=== PATIENT | male | born 1960 | race Caucasian/White ===

== ENCOUNTER 2023-06-28 12:29 | Emergency (ER) | payer BC, SELFPAY ==
[2023-06-28 13:00] VITALS: BP 132/87; PULSE 67; RESP 16; TEMP 36.4; O2SAT 98; BMI 27.5
--- NOTE | 2023-06-28 13:30 | PC.NURSE ---
pt to be seen in clinic with Dr Cuadra for tube replacement, signed ED refusal and sent to clinic, per pt and brother did not need to be seen in ER for any other issues
== END 2023-06-28 13:29 | disposition left against medical advice (07) ==
LOC: ED 13:29
PROVIDERS: Emergency Provider Family Medicine
DX: Z53.21 Procedure and treatment not carried out due to patient leaving prior to being seen by health care provider (principal)

== ENCOUNTER 2023-08-21 10:03 | Emergency (ER) | payer BC, SELFPAY ==
[2023-08-21 10:09] VITALS: BP 131/78; PULSE 67; RESP 12; TEMP 36.2; O2SAT 98; BMI 24.3
--- NOTE | 2023-08-21 11:19 | ED.GENADULT ---
HPI - General Adult General Date Seen: 08/21/23 Chief complaint: Unspecified Complaint, Adult Stated complaint: Feeding tube fell out Time Seen by Provider: 08/21/23 10:46 Source: family Mode of arrival: wheelchair History of Present Illness HPI narrative: Patient is 63-year-old male with a history of stroke in February of this year and G-tube placement in May presenting with his after the G-tube fell out. He is in a long-term and she was called this morning 0630 was told G-tube fell out. He is G-tube dependent. They states that has follow-up before and been replaced. No other concerns at this time. Related Data Allergies Allergy/AdvReac Type Severity Reaction Status Date / Time No Known Drug Allergies Allergy Verified 08/21/23 10:09 Review of Systems Narrative: Negative unless stated in HPI PFSH PFSH Medical History (Updated 08/21/23 @ 13:43 by Obi Hair DO) POLST (Physician Orders for Life-Sustaining Treatment) ?Z78.9 - Other specified health status (ICD-10) Chronic ischemic left MCA stroke ?I69.30 - Unspecified sequelae of cerebral infarction (ICD-10) History of gastrostomy tube placement Tobacco use ?Z72.0 - Tobacco use (ICD-10) Stenosis of left carotid artery ?I65.22 - Occlusion and stenosis of left carotid artery (ICD-10) Hypertension ?I10 - Essential (primary) hypertension (ICD-10) Hyperlipidemia ?E78.5 - Hyperlipidemia, unspecified (ICD-10) Hemiplegia affecting left nondominant side ?G81.94 - Hemiplegia, unspecified affecting left nondominant side (ICD-10) Dysphagia ?R13.10 - Dysphagia, unspecified (ICD-10) Feeding by G-tube ?Z93.1 - Gastrostomy status (ICD-10) Pulmonary embolism ?I26.99 - Other pulmonary embolism without acute cor pulmonale (ICD-10) Diabetes mellitus ?E11.9 - Type 2 diabetes mellitus without complications (ICD-10) Cataract ?H26.9 - Unspecified cataract (ICD-10) History of right MCA stroke ?Z86.73 - Personal history of transient ischemic attack (TIA), and cerebral infarction without residual deficits (ICD-10) Surgical History (Updated 06/20/23 @ 08:43 by Nidhi Cuadra MD) H/O vitrectomy ?Z98.890 - Other specified postprocedural states (ICD-10) H/O cataract extraction ?Z98.49 - Cataract extraction status, unspecified eye (ICD-10) Exam Narrative: Exam Narrative: Const: Well-nourished, Well-developed, in no distress Eyes: PERRL, no conjunctival injection, and symmetrical lids HENT: Atraumatic external nose and ears. Moist mucous membranes. GI: Nontender/Nondistended, No rebound or guarding. No erythema seen around the G-tube site. MSK:Extremities w/o deformity, Normal Active ROM Skin: Warm, Dry. No rashes or lesions. Neuro: Normal Muscle tone, No focal neurological deficits. Psych: Awake, response to pain and appears alert, this is his baseline per the Const: Vital Signs, click to edit/add: Vital Signs - 24 hr 08/21/23 10:09 08/21/23 13:49 Temperature 97.1 F L 97.5 F L Pulse Rate [Pulse Oximeter] 67 62 Respiratory Rate 12 16 Blood Pressure [Ri t Upper Arm] 131/78 136/68 Pulse Oximetry 98 97 Oxygen Delivery Me thod Room Air Room Air Course Vital Signs Vital signs: Initial Vital Signs Temperature 97.1 F L 08/21/23 10:09 Temperature Source Temporal Artery Scan 08/21/23 10:09 Pulse Rate 67 08/21/23 10:09 Pulse Rhythm Regular 08/21/23 10:09 Respiratory Rate 12 08/21/23 10:09 Blood Pressure 131/78 08/21/23 10:09 Blood Pressure Mean 95 08/21/23 10:09 Blood Pressure Position Sitting 08/21/23 10:09 Pulse Oximetry 98 08/21/23 10:09 Oxygen Delivery Method Room Air 08/21/23 10:09 Vital Signs Temperature 97.1 F L 08/21/23 10:09 Pulse Rate 67 08/21/23 10:09 Respiratory Rate 12 08/21/23 10:09 Blood Pressure 131/78 08/21/23 10:09 Pulse Oximetry 98 08/21/23 10:09 Oxygen Delivery Method Room Air 08/21/23 10:09 Temperature 97.5 F L 08/21/23 13:49 Pulse Rate 62 08/21/23 13:49 Respiratory Rate 16 08/21/23 13:49 Blood Pressure 136/68 08/21/23 13:49 Pulse Oximetry 97 08/21/23 13:49 Oxygen Delivery Method Room Air 08/21/23 13:49 Medical Decision Making MDM Narrative Medical decision making narrative: Patient is a 63-year-old male presenting to emergency department for a G-tube replacement. They brought 1 with thumb and I tried to replace it did not fit. There is tubing that was within the tract but does go all the way to the stomach so I do believe it is still open. We will try a smaller tube. Dr. Cuadra, who replaced the G-tube and June and states he has 0718 Norwegian tube tried to place 1 was unable to. She could only get a 12 Norwegian Cole. We did do an x-ray and shows it is in place. Patient will be transferred to [facility] for G-tube placement. Dr. Esposito is the accepting physician. Family is agreeable to this plan. They will leave by private vehicle as he is stable. Imaging Data Abdominal x-ray: Radiologist's impression: Indication: Evaluate gastrostomy tube. Technique: Five frontal abdominal radiographs following the administration of enteric contrast. Comparison: None available. Findings/Impression : Initial images show an enteric tube within the right upper quadrant. Contrast injection opacifies the proximal duodenum. Subsequent images appear to demonstrate retraction of the tube tip to a more midline position. Retention balloon is seen overlying the T12 vertebral body on final image in the region of the gastric antrum/pylorus. Contrast is seen opacifying multiple loops of nondilated small bowel. Bowel gas pattern is nonobstructed. Dictated by Tanika Gallardo MD @ 08/21/2023 1:50:03 PM Discharge Plan Discharge Clinical Impression: Gastrostomy tube dysfunction Patient Disposition: Xfer [place] Discharge Location: [facility] Condition: Stable Instructions: How to Use and Care for Your PEG Tube (ED) Stand Alone Forms: [facility] Info Instructions
--- NOTE | 2023-08-21 12:55 | CRLHL7_ITS ---
For Patients: As a result of the Century Cures Act, medical imaging exams and procedure reports are released immediately into your electronic medical record. You may view this report before your referring provider. If you have questions, please contact your health care provider. Indication: Evaluate gastrostomy tube. Technique: Five frontal abdominal radiographs following the administration of enteric contrast. Comparison: None available. Findings/Impression : Initial images show an enteric tube within the right upper quadrant. Contrast injection opacifies the proximal duodenum. Subsequent images appear to demonstrate retraction of the tube tip to a more midline position. Retention balloon is seen overlying the T12 vertebral body on final image in the region of the gastric antrum/pylorus. Contrast is seen opacifying multiple loops of nondilated small bowel. Bowel gas pattern is nonobstructed. Dictated by Tanika Gallardo MD @ 08/21/2023 1:50:03 PM (Electronically Signed)
--- NOTE | 2023-08-21 13:45 | P.GSCN_ITS ---
History of Present Illness Consult details Date Seen: 08/21/23 Consult date: 08/21/23 Narrative: He is known to me from prior gastrostomy tube changes. I first changed the gastrostomy tube on 06/26/2023. The time he had a 20 [place] Irish gastrostomy tube that had been placed by [facility] when he was inpatient for a stroke back in February. The 1st change went without difficulty. He was changed to a Lopez button. However, 3 days later the tube fell out. He was placed in a slightly longer button and the balloon was inflated further. He had not been having any difficulty until this morning it was noted that the tube was out. His nursing facility place a catheter in the tract and he came to the emergency department. They attempted to replace this with a 20 Northern Irish Lopez button, however this did not fit. [facility] Medical History (Updated 08/21/23 @ 13:43 by Obi Hair DO) POLST (Physician Orders for Life-Sustaining Treatment) ?Z78.9 - Other specified health status (ICD-10) Chronic ischemic left MCA stroke ?I69.30 - Unspecified sequelae of cerebral infarction (ICD-10) History of gastrostomy tube placement Tobacco use ?Z72.0 - Tobacco use (ICD-10) Stenosis of left carotid artery ?I65.22 - Occlusion and stenosis of left carotid artery (ICD-10) Hypertension ?I10 - Essential (primary) hypertension (ICD-10) Hyperlipidemia ?E78.5 - Hyperlipidemia, unspecified (ICD-10) Hemiplegia affecting left nondominant side ?G81.94 - Hemiplegia, unspecified affecting left nondominant side (ICD-10) Dysphagia ?R13.10 - Dysphagia, unspecified (ICD-10) Feeding by G-tube ?Z93.1 - Gastrostomy status (ICD-10) Pulmonary embolism ?I26.99 - Other pulmonary embolism without acute cor pulmonale (ICD-10) Diabetes mellitus ?E11.9 - Type 2 diabetes mellitus without complications (ICD-10) Cataract ?H26.9 - Unspecified cataract (ICD-10) History of right MCA stroke ?Z86.73 - Personal history of transient ischemic attack (TIA), and cerebral infarction without residual deficits (ICD-10) Surgical History (Updated 06/20/23 @ 08:43 by Nidhi Cuadra MD) H/O vitrectomy ?Z98.890 - Other specified postprocedural states (ICD-10) H/O cataract extraction ?Z98.49 - Cataract extraction status, unspecified eye (ICD-10) Meds Home Medications and Allergies Allergies Allergy/AdvReac Type Severity Reaction Status Date / Time No Known Drug Allergies Allergy Verified 08/21/23 10:09 Exam Narrative: Exam Narrative: General: No acute distress CV: Regular rate Respiratory: Breathing nonlabored on room air Abdomen: G-tube site present. The tract appears to be narrowed. Procedure: Gastrostomy replacement with fluoroscopic guidance Description: I was unable to pass the Lopez button catheter through the skin tract. I then obtained a 12 Northern Irish Cole catheter and was able to advance this through the opening with a small amount of resistance. I was unable to aspirate gastric contents. Because of this, Omnipaque contrast was obtained from x-ray. This was diluted 1-1 with water. 5 mL was injected in to the tube and the x-ray was taken at bedside. This showed contrast in the small bowel. It appeared as though the tube was in the duodenum. This was pulled back and the balloon inflated. I then injected an additional 5 mL of contrast. Again the tube appeared to be in the duodenum given the location and pattern of contrast. The balloon was deflated and pulled back several cm. This was then reinflated and pulled up to the abdominal wall. Additional contrast was injected. This showed the rugae of the stomach on x-ray. The catheter was capped and placed to glove. Const: Vital Signs, click to edit/add: Vital Signs - 24 hr 08/21/23 10:09 Temperature 97.1 F L Pulse Rate [Pulse Oximeter] 67 Respiratory Rate 12 Blood Pressure [Ri ght Upper Arm] 131/78 Pulse Oximetry 98 Oxygen Delivery Me thod Room Air Results Labs Labs: All other labs normal. Imaging Abdominal x-ray: report reviewed and image reviewed Additional studies: Radiology read of x-ray reviewed. Shows contrast in the small intestine. Assessment and Plan Assessment and plan (1) Gastrostomy tube dysfunction: Status: Acute Plan The patient is a 63-year-old male with a gastrostomy tube that has fallen out, further narrowing his stoma tract. Because of the size, we do not have any gastrostomy tubes at our facility. I did place a 12 Northern Irish Cole in the location. This can be used for feeding, however given the size of the holes in the Cole catheter I am concerned that his medications will very quickly clog them. Therefore I recommended we try to get him to a tertiary center where Interventional Radiology can hopefully dilate the tract and replaced with larger 2. He was accepted at [facility]. He is going to go by private car.
[2023-08-21 13:49] VITALS: BP 136/68; PULSE 62; RESP 16; TEMP 36.4; O2SAT 97
== END 2023-08-21 13:57 | disposition other institution (70) ==
PROVIDERS: Emergency Provider Student in an Organized Health Care Education/Training Program; PCP Student in an Organized Health Care Education/Training Program
DX: T85.598A Other mechanical complication of other gastrointestinal prosthetic devices, implants and grafts, initial encounter (principal)
CPT/HCPCS: 74018; 99283; 99284; 99285; Q9963

== ENCOUNTER 2023-11-14 21:40 | Outpatient (CLI) | payer BC, SELFPAY | END 2023-11-14 21:41 | disposition home or self-care (01) | LOC: AMB 11-17 16:18 | PROVIDERS: PCP Student in an Organized Health Care Education/Training Program; Visit Provider Emergency Medicine | DX: K94.23 Gastrostomy malfunction (principal) | CPT/HCPCS: A0425; A0429 ==

== ENCOUNTER 2024-03-14 09:09 | Outpatient (CLI) | payer MEDICARE, BC, SELFPAY ==
--- NOTE | 2024-03-14 09:15 | FL_ITS ---
Patient: SUSHILA ROWE Facility:?[facility] Patient ID:?[id number] Site Patient ID:?[id number]. Site :?[id number] Study:?XRay-Abdomen Barium swallow modified READ-03/14/2024 9:40:18 AM Ordering Physician:PAOLA NESS Final Report: INDICATION: DYSPHAGIA TECHNIQUE: Modified barium swallow. Fluoroscopic time 1 minute 58 seconds. FINDINGS/IMPRESSION: Fluoroscopic guidance performed for video swallow study performed by speech pathology. Dictated by Leonidas Vo MD @ 03/18/2024 8:30:16 AM Signed by:?Leonidas Vo MD @03/18/2024 8:30:16 AM (Electronic Signature)
== END 2024-03-14 09:10 | disposition home or self-care (01) ==
PROVIDERS: PCP Student in an Organized Health Care Education/Training Program; Visit Provider Nurse Practitioner Adult Health
DX: R13.10 Dysphagia, unspecified (principal)
CPT/HCPCS: 74230; 92611

== ENCOUNTER 2024-11-08 10:32 | Outpatient (CLI) | payer MEDICARE, BC, SELFPAY | END 2024-11-08 10:33 | disposition home or self-care (01) | LOC: AMB 11-10 07:04 | PROVIDERS: PCP Family Medicine; Visit Provider Internal Medicine | DX: R53.1 Weakness (principal); U07.1 COVID-19 | CPT/HCPCS: A0425; A0429 ==

== ENCOUNTER 2024-11-08 10:53 | Emergency (ER) | payer MEDICARE, BC, SELFPAY ==
[2024-11-08 11:03] VITALS: BP 124/64; PULSE 89; RESP 18; TEMP 35.8; O2SAT 94; BMI 26.7
--- NOTE | 2024-11-08 11:43 | ED_ITS ---
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 Ranulfo currently resides at [address] [place] [address]. According to notes he tested positive for COVID today after was noted he had a temp of 101.2? and he is face was flushed any seemed to be moaning more. He was given acetaminophen at 0800 hours this morning. Appears there was a discussion between Ranulfo's and the nurse practitioner regarding the use of Paxlovid and they decided that the tablet could not fit in to Nora G tube. Thus they are requesting remdesivir. There have been no reports of hypoxia. Ranulfo seems to have more moaning type be havior. At baseline he is nonverbal. Current medications include: Apixaban 2.5 mg b.i.d. Aspirin 81 mg daily Atorvastatin Escitalopram Gabapentin Lansoprazole Lisinopril Loratadine Reglan Acetaminophen Simethicone Senna Suppository Eyedrops Flonase Related Data Home Medications ?Medication ?Instructions ?Recorded ?Confirmed acetaminophen 500 mg tablet 500 mg PO Q6H PRN 11/08/24 11/08/24 apixaban 2.5 mg tablet 2.5 mg feeding tube BID 11/08/24 11/08/24 aspirin 81 mg chewable tablet 1 tab PO DAILY 11/08/24 11/08/24 atorvastatin 80 mg tablet 80 mg PO DAILY 11/08/24 11/08/24 carboxmethylcellulose 11/08/24 Previous Rx's ?Medication ?Instructions ?Recorded molnupiravir 200 mg capsule (EUA) 800 mg (4 x 200 mg) PO Q12H 5 days 11/08/24 (Lagevrio) #40 caps Allergies Allergy/AdvReac Type Severity Reaction Status Date / Time No Known Drug Allergies Allergy Verified 11/08/24 11:10 Review of Systems Status of ROS: Reports: unobtainable due to medical condition Narrative: According to [place] , patient had been well 48 hours ago Const: Reports: fever PFSH PFSH Medical History POLST (Physician Orders for Life-Sustaining Treatment) ?Z78.9 - Other specified health status (ICD-10) Chronic ischemic left MCA stroke ?I69.30 - Unspecified sequelae of cerebral infarction (ICD-10) History of gastrostomy tube placement Tobacco use ?Z72.0 - Tobacco use (ICD-10) Stenosis of left carotid artery ?I65.22 - Occlusion and stenosis of left carotid artery (ICD-10) Hypertension ?I10 - Essential (primary) hypertension (ICD-10) Hyperlipidemia ?E78.5 - Hyperlipidemia, unspecified (ICD-10) Hemiplegia affecting left nondominant side ?G81.94 - Hemiplegia, unspecified affecting left nondominant side (ICD-10) Dysphagia ?R13.10 - Dysphagia, unspecified (ICD-10) Feeding by G-tube ?Z93.1 - Gastrostomy status (ICD-10) Pulmonary embolism ?I26.99 - Other pulmonary embolism without acute cor pulmonale (ICD-10) Diabetes mellitus ?E11.9 - Type 2 diabetes mellitus without complications (ICD-10) Cataract ?H26.9 - Unspecified cataract (ICD-10) History of right MCA stroke ?Z86.73 - Personal history of transient ischemic attack (TIA), and cerebral infarction without residual deficits (ICD-10) Surgical History H/O vitrectomy ?Z98.890 - Other specified postprocedural states (ICD-10) H/O cataract extraction ?Z98.49 - Cataract extraction status, unspecified eye (ICD-10) Social History Smoking Status: Former smoker How often do you have a drink containing alcohol: never AUDIT-C Alcohol total score: 0 Non-prescribed substance use: denies use Exam Narrative: Exam Narrative: Ranulfo is awake. Nonverbal at this time. Cooperative with exam. Does appear to be congested with occasional cough but no respiratory distress. Neck is supple. Heart with regular rate and rhythm. Lungs are with decreased breath sounds in the bases but no significant wheezing or crackles. Abdomen is soft. G-tube ap pears to be in place without surrounding erythema. Lower extremities without edema. Const: Vital Signs, click to edit/add: Vital Signs - 24 hr 11/08/24 11:03 11/08/24 13:47 11/08/24 14:07 Temperature 96.5 F L 100.9 F H 100.9 F H Pulse Rate [Pulse Oximeter] 89 105 H Respiratory Rate 18 18 Blood Pressure [Ri t Upper Arm] 124/64 133/66 Pulse Oximetry 94 90 Oxygen Delivery Me thod Room Air Room Air Documenting provider has reviewed patient's vital signs: yes Course Course ED Course: At this time patient appears to be oxygenating well with O2 sats between 94-96%. He is not tachycardic. Will investigate the use of Paxlovid as your a crushed tablet and consult with pharmacy here. In the meantime will obtain chest x-ray and labs to include CBC and comprehensive panel. Reevaluation(s) Reevaluation #1: Patient noted to have an increase of temp to 100.9 and Ranulfo's request dating Tylenol. We did switch this from tablet form to a rectal. 650 mg. Vital Signs Vital signs: Initial Vital Signs Temperature 96.5 F L 11/08/24 11:03 Temperature Source Temporal Artery Scan 11/08/24 11:03 Pulse Rate 89 11/08/24 11:03 Respiratory Rate 18 11/08/24 11:03 Blood Pressure 124/64 11/08/24 11:03 Blood Pressure Mean 84 11/08/24 11:03 Blood Pressure Position Sitting 11/08/24 11:03 Pulse Oximetry 94 11/08/24 11:03 Oxygen Delivery Method Room Air 11/08/24 11:03 Vital Signs Temperature 96.5 F L 11/08/24 11:03 Pulse Rate 89 11/08/24 11:03 Respiratory Rate 18 11/08/24 11:03 Blood Pressure 124/64 11/08/24 11:03 Pulse Oximetry 94 11/08/24 11:03 Oxygen Delivery Method Room Air 11/08/24 11:03 Temperature 100.9 F H 11/08/24 14:07 Pulse Rate 105 H 11/08/24 14:07 Respiratory Rate 18 11/08/24 14:07 Blood Pressure 133/66 11/08/24 14:07 Pulse Oximetry 90 11/08/24 14:07 Oxygen Delivery Method Room Air 11/08/24 14:07 Medications Administered Medications: Discontinued Medications Generic Name Dose Route Start Last Admin Trade Name Doe PRN Reason Stop Dose Admin Acetaminophen 650 mg 11/08/24 12:08 11/08/24 13:17 Acetaminophen 325 Mg Tablet PO 11/08/24 12:09 Not Given ONCE ONE Acetaminophen 650 mg 11/08/24 13:31 11/08/24 13:47 Acetaminophen 650 Mg Supp [place] 11/08/24 13:32 650 mg ONCE ONE Administration MDM - Weakness MDM Narrative Medical decision making narrative: 1. COVID-today appears to be day 1 of symptoms. Chest x-ray reassuring as have oxygen saturations been during stay in the ED. Patient is a candidate based on time for Paxlovid, molnupiravir as well as remdesivir. I had discussion with pharmacy regarding these medications and presented a pros and cons discussion to [place] and daughter of as related to his current medications. Options included: 1. Paxlovid-pros include administration through the G-tube and we did find literature that supports crushing the tablets so that we could use the G-tube. The patient has normal kidney function and therefore would be a candidate. He does have some possible interactions with his medications and if we did this we would continue his apixaban but hold his aspirin, atorvastatin, loratadine. I did check his other medications to include escitalopram gabapentin lansoprazole lisinopril melatonin and Reglan and these could be continued per his normal routine. While the theoretical risk with the use of Paxlovid and Eliquis together would be increased bleeding, taking him off his aspirin could place him at risk for stroke. 2.Molnupiravir-antiviral that would not be as effective as Paxlovid or remdesivir but we would not have to change any of his medications in order for him to take it and therefore would not place him at increased risk for stroke. Pro would include the fact that it can be crushed and given through G2. 3. Remdesivir-this antiviral would have to be given for 3 days or and would nini rios cost thousands of dollars. I cannot guarantee that insurance would pay for this and family would need to be on the hook for the remainder not covered by insurance. This would also involve using an ambulance for 3 days to bring Ranulfo back and forth for outpatient administration. We did talk briefly about admitting Ranulfo to the hospital but this would be under out patient stat and family again would be on the hook for any additional charges as he does not meet inpatient criteria. We would not have to change other medication dosing with this medication and it likely works as well as Paxlovid. After discussion of all of these family has decided to go with molnupiravir so as to avoid any need for changing of his anticoagulation medications and for venting further stroke. They are aware that this medication does not work as well as Paxlovid or remdesivir. This discussion was had with both Ranulfo's and daughter. Daughter was on the phone. 2. Disposition-home at this time to [address] [place] [address]. Prior to departure I did speak with Ranulfo's again to ensure that she feels comfortable with our plan after our discussions and she agrees with that. Return for worsening sy mptoms and as needed. Medical Records Attestation: I reviewed the patient's medical records. Lab Data Attestation: I reviewed the patient's lab results. Labs: Lab Results 11/08/24 Range/Units 12:41 WBC 8.90 (4.50-11.00) K/uL RBC 4.56 (4.30-5.90) m/uL Hgb 14.3 (13.5-17.5) gm/dL Hct 42.5 (37.0-53.0) % MCV 93 (80-100) fL MCH 31 (26-34) pg MCHC 34 (32-36) gm/dL RDW Coeff of Namita 12.0 (11.5-15.5) % Plt Count 180 (140-440) K/uL Neut % (Auto) 81.3 H (42.0-72.0) % Lymph % (Auto) 8.3 L (20-44) % [place] % (Auto) 10.0 (0.0-11.0) % Eos % (Auto) 0.0 (0.0-7.0) % Baso % (Auto) 0.2 (0.0-3.0) % Neut # (Auto) 7.20 H (1.7-7.0) K/uL Lymph # (Auto) 0.70 L (0.90-2.90) K/uL [place] # (Auto) 0.90 (0.00-0.90) K/UL Eos # (Auto) 0.00 (0.00-0.50) K/uL Baso # (Auto) 0.02 (0.00-0.30) K/uL Abs Immat Gran (auto) 0.02 (0.00-0.30) K/uL Imm/Tot Granulo (auto) 0.2 % Sodium 136 (135-149) mmol/L Potassium 4.5 (3.6-5.1) mmol/L Chloride 103 (96-114) mmol/L Carbon Dioxide 28 (20-32) mmol/L Anion Gap 5 L (7-15) mEq/L BUN 25 (7-30) mg/dL Creatinine 0.5 (0.5-1.5) mg/dL Estimated Creat Clear 73.65 Estimated GFR 113 ml/min Glucose 101 (60-115) mg/dL Calcium 9.1 (8.4-10.6) mg/dL Total Bilirubin 0.9 (0.1-1.5) mg/dL AST 28 (12-35) U/L ALT 26 (4-50) U/L Alkaline Phosphatase 41 (40-150) U/L Total Protein 7.2 (6.0-8.3) g/dL Albumin 4.5 (3.3-5.0) g/dL Imaging Data Chest x-ray: Attestation: I have reviewed the pertinent imaging results. My impression: I do not note any large infiltrate Radiologist's impression: Cardiovascular and mediastinum: Upper normal heart size with atherosclerotic calcification. Lungs and pleural space: No pleural effusion or pneumothorax. Bilateral bronchial wall thickening which can be seen in bronchitis or reactive airways disease. Some overlapping soft tissue density at the left lung base although there may be some linear opacities, likely atelectasis at this level. Bones and soft tissues: Underlying osteopenia. Discharge Plan Discharge Clinical Impression: COVID Condition: Unchanged Additional Instructions: Lab values were reassuring today. Chest x-ray does not show any pneumonia. Return for worsening symptoms and as needed. After our discussion regarding the pros and cons of remdesivir, molnupiravir and Paxlovid, you have decided to use the antiviral Molnupiravir. You do not need to change any of your current medications with this particular medicine. This can be crushed and here are the following instructions: Administration: Adult Oral:?Administer with or without food. Swallow capsules whole; do not open, break, or crush Nasogastric, orogastric, gastrostomy, or gastrojejunostomy feeding tubes (NG, OG, G, or GJ tubes):?For patients unable to swallow capsules whole, capsule contents may be dispersed in water to be administered via nasogastric (NG) tubes, orogastric (OG) tubes, gastrostomy (G) tubes >=2 English, or gastrojejunostomy (GJ) tubes >=4 English. Open capsules and transfer contents to a container with a lid; add 40 mL of water to the container and shake thoroughly (3 minutes). Flush tube with 5 mL of water prior to administration; draw up entire contents in container using an appropriate syringe and administer immediately through the NG/OG/G tube or through gastric port for GJ tube. If contents remain in container, add 10 mL of water to the container, mix, and draw up into the same syringe administering via the tube; repeat as needed until container and syringe are empty. Flush tube twice with 5 mL of water (10 mL total) after administering the mixture.?Note:?Capsule contents may not dissolve completely and visible undissolved particulates are acceptable; do not store mixture for future use Prescriptions: New Lagevrio (EUA) 200 mg capsule 800 mg PO Q12H 5 Days Qty: 40 0RF No Action acetaminophen 500 mg tablet 500 mg PO Q6H PRN aspirin 81 mg tablet,chewable 1 tab PO DAILY apixaban 2.5 mg tablet 2.5 mg feeding tube BID atorvastatin 80 mg tablet 80 mg PO DAILY carboxmethylcellulose Patient Comments: 1 drop in both eyes as needed for dry eyes PRN Follow Up/Referrals: Chirag Thomas MD [Referring] -
--- NOTE | 2024-11-08 12:08 | CRLHL7_ITS ---
For Patients: As a result of the Cures Act, medical imaging exams and procedure reports are released immediately into your electronic medical record. You may view this report before your referring provider. If you have questions, please contact your health care provider. Indication: COVID infection Technique: Chest 1 view Comparison: None Findings/Impression: Cardiovascular and mediastinum: Upper normal heart size with atherosclerotic calcification. Lungs and pleural space: No pleural effusion or pneumothorax. Bilateral bronchial wall thickening which can be seen in bronchitis or reactive airways disease. Some overlapping soft tissue density at the left lung base although there may be some linear opacities, likely atelectasis at this level. Bones and soft tissues: Underlying osteopenia. Dictated by Sergey Vela MD @ 11/08/2024 12:54:51 PM (Electronically Signed)
[2024-11-08 12:54] LABS: Basophils Absolute Auto 0.02 K/uL (0.00-0.30); Basophils Percent Auto 0.2 % (0.0-3.0); Hematocrit 42.5 % (37.0-53.0); Hemoglobin* 14.3 gm/dL (13.5-17.5); Immature Granulocytes Abs Auto 0.02 K/uL (0.00-0.30); Immature Granulocytes Pct Auto 0.2 %; Lymphocytes Percent Auto 8.3 % (20-44); Mean Corpuscular HGB Conc 34 gm/dL (32-36); Mean Corpuscular Hemoglobin 31 pg (26-34); Mean Corpuscular Volume 93 fL (80-100); Neutrophils Percent Auto 81.3 % (42.0-72.0); Platelet Count* 180 K/uL (140-440); Red Blood Count 4.56 m/uL (4.30-5.90)
[2024-11-08 13:00] LABS: Albumin* 4.5 g/dL (3.3-5.0); Chloride* 103 mmol/L (96-114)
[2024-11-08 13:01] LABS: Potassium* 4.5 mmol/L (3.6-5.1); Sodium* 136 mmol/L (135-149)
[2024-11-08 13:03] LABS: Anion Gap 5 mEq/L (7-15); Bilirubin Total* 0.9 mg/dL (0.1-1.5); Carbon Dioxide* 28 mmol/L (20-32); Creatinine* 0.5 mg/dL (0.5-1.5); Est. Creatinine Clearance* 73.65; Estimated Glomerular Filt Rate 113 ml/min
[2024-11-08 13:04] LABS: Alanine Aminotransferase* 26 U/L (4-50); Alkaline Phosphatase* 41 U/L (40-150); Aspartate Amino Transferase* 28 U/L (12-35); Blood Urea Nitrogen* 25 mg/dL (7-30); Calcium* 9.1 mg/dL (8.4-10.6); Glucose* 101 mg/dL (60-115); Total Protein* 7.2 g/dL (6.0-8.3)
[2024-11-08 13:19] LABS: Slide Review Reflex No
[2024-11-08 13:47] VITALS: TEMP 38.3
[2024-11-08] MEDS: ACETAMINOPHEN 650 MG SUPP PR (13:47)
[2024-11-08 14:07] VITALS: BP 133/66; PULSE 105; RESP 18; TEMP 38.3; O2SAT 90
== END 2024-11-08 14:36 | disposition home or self-care (01) ==
PROVIDERS: Emergency Provider Family Medicine; PCP Family Medicine
DX: U07.1 COVID-19 (principal)
CPT/HCPCS: 36415; 71045; 80053; 85025; 99283; 99284; A9270

== ENCOUNTER 2024-11-08 14:21 | Outpatient (CLI) | payer MEDICARE, BC, SELFPAY | END 2024-11-08 14:22 | disposition home or self-care (01) | LOC: AMB 11-18 04:29 | PROVIDERS: PCP Family Medicine; Visit Provider Internal Medicine | DX: U07.1 COVID-19 (principal); R53.1 Weakness; R05.9 Cough, unspecified | CPT/HCPCS: A0425; A0428 ==

== ENCOUNTER 2025-08-16 05:00 | Outpatient (CLI) | payer MEDICARE, BC, SELFPAY | END 2025-08-16 05:01 | disposition home or self-care (01) | LOC: AMB 08-18 11:53 | PROVIDERS: PCP Family Medicine; Visit Provider Family Medicine | DX: Z43.1 Encounter for attention to gastrostomy (principal) | CPT/HCPCS: A0425; A0427 ==

== ENCOUNTER 2025-08-26 03:33 | Outpatient (CLI) | payer MEDICARE, BC, SELFPAY | END 2025-08-26 03:34 | disposition home or self-care (01) | LOC: AMB 18:18 | PROVIDERS: PCP Family Medicine; Visit Provider Family Medicine | DX: R06.02 Shortness of breath (principal) | CPT/HCPCS: A0425; A0427 ==

== ENCOUNTER 2025-08-26 03:53 | Inpatient (IN) | payer MEDICARE, BC, SELFPAY ==
--- OUTSIDE RECORDS SUMMARY | 2025-08-15 09:52 | XMS_ITS | Encounter Summary ---
Author Organization [facility] Address [address] [place] [address] Care Team Providers Care Assistant Site Manager Name Role Phone None Reported, Pcp Primary Care Provider Unavail able Reason for Referral * Outpatient (Routine) - Closed Specialty Diagnoses / Procedures Referred By Rahel dacosta Referred To Contact Radiology Diagnoses Dietary Counseling And Surveillance For Enteral Nutrition Procedures IR Gastrostomy Tube Exchange Tamiko Malik APRN, C.N.P., D.N.P. [address] [place] [phone] Phone: tel: fax: [facility] Referral ID Status Reason Start Date Expiration Date Visits Re quested Visits Authorized [id number] Closed 07/30/2025 10/30/2026 1 1 Reason for Visit * Outpatient (Routine) - Closed Specialty Diagnoses / Procedures Referred By Rahel dacosta Referred To Contact Radiology Diagnoses Dietary Counseling And Surveillance For Enteral Nutrition Procedures IR Gastrostomy Tube Exchange Tamiko Malik APRN, C.N.P., D.N.P. [address] [place] [phone] Phone: tel: fax: [facility] Referral ID Status Reason Start Date Expiration Date Visits Re quested Visits Authorized [id number] Closed 07/30/2025 10/30/2026 1 1 Encounter Details Date Type Department Care Team (Late st Contact Info) Description 08/15/2025 9:52 AM CDT - 08/15/2025 1:01 PM CDT Hospital Encounter Department of Radiology in [place], [place] [address] [place] [phone] Tamiko Malik, JALEN, C.N.P., D.N.P. [address] [place] [phone] Derik Hernandez M.D. [address] [place] [phone] Shelly Mckeon M.D. [address] [place] [phone] Dietary Counseling And Surveillance For Enteral Nutrition Discharge Disposition: Home or Self Care Social History Tobacco Use Types Packs/Day Years Used Date Smoking Tobacco: Former Cigarettes 1 40 0 01/27/1980 - 01/27/2020 Passive Smoke Exposure: Current Smokeless Tobacco: Never Comments:Past and current sm dinesh exposure Alcohol Use Standard Drinks/Week Comments Not Currently 6 (1 standard drink = 0.6 oz pur e alcohol) Humiliation, Afraid, Rape, and Kick questionnair e Answer Date Recorded Within the last year, have y ou been afraid of your partner or ex-partner? No 01/22/2023 Within the last year, have y ou been humiliated or emotionally abused in other ways by your partner or ex-partner? No 01/22/2023 Physically Abused Not on file 01/22/2023 Within the last year, have y ou been raped or forced to have any kind of sexual activity by your partner or ex-partner? No 01/22/2023 Hunger Vital Sign Answer Date Recorded Within the past 12 months, y ou worried that your food would run out before you got the money to buy more. Never true 01/23/20 23 Within the past 12 months, t he food you bought just didn't last and you didn't have money to get more. Never true 01/22/2023 PRAPARE - Transportation Answer Date Re corded In the past 12 months, has l ack of transportation kept you from medical appointments or from getting medications? No 01/04 In the past 12 months, has l ack of transportation kept you from meetings, work, or from getting things needed for daily living? No 01/22/2023 Housing Stability Vital Sign Answer Francisco e Recorded In the last 12 months, was t here a time when you were not able to pay the mortgage or rent on time? No 01/22/2023 In the last 12 months, how many places have you lived? 1 01/22/2023 In the last 12 months, was t here a time when you did not have a steady place to sleep or slept in a detention (including now)? No 01/22/2023 Education Answer Date Recorded What is the highest level of school you have completed or the highest degree you have received? 12th grade 02/28/2020 Sex and Gender Information Value Date Recorded Sex Assigned at Male 09/16/2021 7:21 PM [employer] Legal Sex Male 10:26 AM [employer] Gender Identity Male 12/17/2020 7:55 PM [employer] Sexual Orientation Straight 12/17/2020 7: 55 PM [employer] documented as of this encounter Last Filed Vital Signs Vital Sign Reading Time Taken Comments Blood Pressure 123/74 08/15/2025 12:45 PM CDT Pulse 59 08/15/2025 12:45 PM CDT Temperature 36.5 C (97.7 F) 08/15/2025 12:49 PM CDT Respiratory Rate 18 08/15/2025 10:5 2 AM CDT Oxygen Saturation 97% 08/15/2025 12: 45 PM CDT Inhaled Oxygen Concentration - - Weight 81.5 kg (179 lb 10.8 oz) 025 10:52 AM CDT Height - - Body Mass Index 25.15 07/14/2023 8:29 AM CDT documented in this encounter Medications at Time of Discharge acetaminophen (TYLENOL) 500 mg tablet Administer 2 tablets (1,000 mg total) via gastric tube every 6 (six) hours as needed for mild pain or score 1-3 of 10, moderate pain or score 4-6 of 10 or headaches. 04/06/2023 apixaban (ELIQUIS) 5 mg tablet Administer 1 tablet (5 mg total) via gastric tube 2 (two) times a day. 04/06/2023 aspirin 81 mg chewable tablet Administer 1 tablet (81 mg total) via gastric tube daily. 04/07/2023 atorvastatin (LIPITOR) 80 mg tablet Administer 1 tablet (80 mg total) via gastric tube at bedtime. 04/06/2023 carboxymethylcel lulose (REFRESH PLUS) 0.5 % ophthalmic solution Administer 1 drop into both eyes 3 (three) times a day as needed for dry eyes. 04/06/2023 cholecalciferol (VITAMIN D3) 10 mcg (400 Unit) tablet Administer 1 tablet (10 mcg total) via gastric tube every morning. 04/07/2023 escitalopram (LEXAPRO) 10 mg tablet Administer 1 tablet (10 mg total) via gastric tube daily. 04/07/2023 gabapentin (NEURONTIN) 300 mg capsule Take 300 mg by mouth at bedtime. guaiFENesin (Mucinex) 600 mg 12 hr tablet Take 600 mg by mouth daily. 06/27/2023 lansoprazole (PREVACID) 3 mg/mL suspension Take 10 mL (30 mg total) by mouth 2 (two) times a day. 300 mL 05/23/2023 lisinopriL (PRINIVIL,ZESTRI L) 20 mg tablet Administer 1 tablet (20 mg total) via gastric tube daily. 04/07/2023 loratadine (CLARITIN) 5 mg/5 mL solution Administer 10 mL (10 mg total) via gastric tube daily as needed for allergies. 04/12/2023 melatonin 3 mg tablet Administer 2 tablets (6 mg total) via gastric tube at bedtime. 0 04/06/2023 metoclopramide (REGLAN) 10 mg tablet Take 1 tablet (10 mg total) by mouth 3 (three) times a day. 90 tablet 1 05/23/2023 sennosides-docus ate sodium (SENOKOT-S) 8.6-50 mg per tablet Administer 2 tablets via gastric tube 2 (two) times a day. 04/06/2023 simethicone (MYLICON) 80 mg chewable tablet Administer 1 tablet (80 mg total) via gastric tube 4 (four) times a day. 120 tablet 05/23/2023 SITagliptin phosphate (JANUVIA) 100 mg tablet Administer 1 tablet (100 mg total) via gastric tube daily. 04/07/2023 documented as of this encounter Plan of Treatment Not on file documented as of this encounter Procedures Procedure Name Priority Date/Time Associated Diagnosis Comments IR GASTROSTOMY TUBE EXCHANGE RAD - Routine (most inpatients and all outpatients) 08/15/2025 12:34 PM CDT Dietary Counseling And Surveillance For Enteral Nutrition documented in this encounter Results * IR Gastrostomy Tube Exchange (08/15/2025 12:34 PM CDT) Anatomical Region Laterality Modality Abdomen, Vascular Interventi onal RST LOS, Vascular Interventional ARZ LOS, Vascular Interventional FLA LOS N/A X-Ray Angiography Impressions 08/15/2025 1:53 PM CDT Exchange of an 18 [place]er percutaneous gastrostomy tube. The tube is ready for use. Exchange tube in 3-5 months. Contact the [facility] clinic at [phone] to schedule the tube exchange. NR Narrative 08/15/2025 1:53 PM CDT EXAM: IR GASTROSTOMY TUBE EXCHANGE CLINICAL HISTORY: Routine gastrostomy tube exchange Encounter Reason: Routine. TECHNIQUE: The patient was placed supine on the fluoroscopy table. The abdomen and gastrostomy tube were prepared and draped in sterile fashion. Van Owner Operator image demonstrates a percutaneous gastrostomy tube. Contrast injection through the tube demonstrated satisfactory position in the stomach. The tube was exchanged for a new gastrostomy tube with dilute contrast in the balloon (specifications below). Final contrast injection through the tube confirmed satisfactory function and position in the stomach. No immediate complication. Tube Type: Gastrostomy. Tube Connection: ENFit. Tube Size: 18 [place]er. Low Profile: No. Disc Height: 3 cm. Balloon Volume: 7 mL. PREPROCEDURE: Patient seen and evaluated. Allergies, pertinent medications, and history reviewed. Discussed risks, benefits, alternatives for procedure, and obtained informed consent. Patient understands information and questions answered. Immediately prior to starting the procedure, in the presence of the assisting personnel, procedural pause was conducted to verify correct patient identity and verification of procedure to be performed, and as applicable, correct side and site, correct patient position, availability of implants, special equipment, or special requirements, and all image and specimen identification data. The roles and responsibilities of care team members, residents, and fellows were discussed. Procedure Note Derik Hernandez M.D. - 08/15/2025 EXAM: IR GASTROSTOMY TUBE EXCHANGE CLINICAL HISTORY: Routine gastrostomy tube exchange Encounter Reason: Routine. TECHNIQUE: The patient was placed supine on the fluoroscopy table. The abdomen andgastrostomy tube were prepared and draped in sterile fashion. Van Owner Operator imagedemonstrates a percutaneous gastrostomy tube. Contrast injection throughthe tube demonstrated satisfactory position in the stomach. The tube wasexchanged for a new gastrostomy tube with dilute contrast in the balloon(specifications below). Final contrast injection through the tubeconfirmed satisfactory function and position in the stomach. No immediatecomplication. Tube Type: Gastrostomy. Tube Connection: ENFit. Tube Size: 18 [place]er. Low Profile: No. Disc Height: 3 cm. Balloon Volume: 7 mL. PREPROCEDURE: Patient seen and evaluated. Allergies, pertinentmedications, and history reviewed. Discussed risks, benefits, alternativesfor procedure, and obtained informed consent. Patient understandsinformation and questions answered. Immediately prior to starting theprocedure, in the presence of the assisting personnel, procedural pausewas conducted to verify correct patient identity and verification ofprocedure to be performed, and as applicable, correct side and site,correct patient position, availability of implants, special equipment, orspecial requirements, and all image and specimen identification data. Theroles and responsibilities of care team members, residents, and fellowswere discussed. IMPRESSION: Exchange of an 18 [place]er percutaneous gastrostomy tube. The tube is readyfor use. Exchange tube in 3-[address] [facility] [phone] to schedule the tube exchange. NR Tamiko Malik APRN C.N.P., D.N.P. IMG IR PROCED URES Final Result documented in this encounter Visit Diagnoses Diagnosis Dietary Counseling And Surveillance For Enteral Nutrition documented in this encounter Administered Medications Inactive Administered Medications - up to 3 most recent administrations Medication Order MAR Action Action Date Dose Rate Site iohexoL 300 mg iodine/mL solution (Omnipaque) As needed, Starting on Mon08/15/25 at 1234, Intra-Op Given 08/15/2025 12:34 PM CDT 30 mL documented in this encounter Active and Recently Administered Medications Times are shown in CDT. PRN Medication Order 08/13/2025 08/14/2025 08/15/2025 iohexoL 300 mg iodine/mL solution (Omnipaque) (COMPLETED) As needed, Starting on Mon08/15/25 at 1234, Intra-Op 1234 (Given - Provid er: Derik Hernandez M.D.) documented in this encounter Care Teams Assistant Site Manager Relationship Specialty Start Date End Date None Reported, Pcp PCP - General Family Medicine 04/08/25 documented as of this encounter
--- OUTSIDE RECORDS SUMMARY | 2025-08-16 06:10 | XMS_ITS | Encounter Summary ---
Author Organization [facility] Address [address] [place] [id number] Care Team Providers Care Medical Laboratory Scientist Name Role Phone None Reported, Pcp Primary Care Provider Unavail able Reason for Visit * Reason Comments Tube Problem Encounter Details Date Type Department Care Team ([facility] st Contact Info) Description 08/16/2025 6:10 AM CDT - 08/16/2025 11:39 AM CDT Emergency [facility] [address] [place] [phone] Jorge Alberto Diaz D.O. [address] [place] [phone] Jono Caceres M.D. [address] [place] [phone] Dysfunction Gastric Tube Initial (Primary Dx) Discharge [...] place to sleep or slept in a penitentiary (including now)? No 01/22/2023 Education Answer Date Recorded What is the highest level of school you have completed or the highest degree you have received? 12th grade 02/28/2020 Sex and Gender Information Value Date Recorded Sex Assigned at Male 09/16/2021 7:21 PM SOFT METALS HAND ENGRAVER Legal Sex Male 10:26 AM SOFT METALS HAND ENGRAVER Gender Identity Male 12/17/2020 7:55 PM SOFT METALS HAND ENGRAVER Sexual Orientation Straight 12/17/2020 7: 55 PM SOFT METALS HAND ENGRAVER documented as of this encounter Last Filed [...] 8:38 AM CDT SUBJECTIVE Emergency Department social media intern is consulted by ED RN, Ynes, to assist with transportation resources. Nursing reports the patient is ready for discharge back to his nursing home facility, [facility], in [place]. Patient is needing wheelchair transport, and does not need supplemental oxygen for the transport. Nurse to nurse report has been completed. Patient in currently located in C10 of the Emergency Department. Patient is nonverbal at baseline; therefore, social work calls and speaks with patient's , Mely (phone: [phone]). Social work introduces self and reviews the role of social work in the emergency department. Mely verbalizes an understanding of ED social work role as part of patient's treatment team. Mely appears to be a reliable historian for the purpose of this assessment. Mely reports that patient currently resides at his nursing home facility, [facility] (address: [address] [place] [address]). Mely notes no concerns with patient returning to the above facility. Mely agrees to da ent needing wheelchair transportation; therefore, social work arranges transportation via [employer] this morning on patient's behalf. Nursing is updated. OBJECTIVE Emergency Department Social work was consulted to assist with transportation back to patient's nursing home facility - [facility] (address: [address] [place] [address]). Social work arranged transportation with [employer]. ASSESSMENT / PLAN ASSESSMENT Transport resources were explored and arranged to assist with the patient's needs. The patient appears to have insight into their needs at this time. PLAN 1. [employer] to provide return transportation to patient's nursing home facility, [facility] (address: [address] [place] [address]). 2. Please contact social work if further supportive or dismissal needs arise. Eloy Aviles, L.I.C.S.W. 08/16/2025 documented in this encounter Procedure Notes * Shelly Mckeon M.D. - 08/16/2025 9:05 AM CDT PATIENT DISPOSITION Return to Outpatient Unit for recovery. Discharge patient when discharge criteria met. POST-PROCEDURE DIAGNOSIS Gastrostomy tube replacement 18 [place] (9cc in balloon) PROCEDURE PERFORMED AND DESCRIPTION Gastrostomy tube replacement 18 [place] (9cc in balloon) PROCEDURE DETAILS See Radiology Report SPECIMENS REMOVED None FINDINGS See radiology report PRIMARY PROCEDURALIST [place] ASSISTANTS Don Ko COMPLICATIONS None. DRAINS Gastrostomy tube replacement 18 [place] (9cc in balloon) IMPLANTS None. ANESTHESIA None. [...] AM CDT Care of patient transferred to wi by Dr. Tariq Isidro. Briefly, this is [...] patient was discharged back home to the [facility]. Final Diagnoses: as of 08/16/25 1604 Dysfunction [...] AM CDT Pt brought in from [facility] with EMS. Pt had a G-tube [...] was receiving a bath yesterday morning from certified nursing attendant at his [facility] care center around 5 AM. The tube [...] 08/16/2025 10:35 AM CDT Placement of 18 [place] percutaneous gastrostomy tube. Nothing by mouth or tube for 2 hours (strict). Then use of mouth or tube for water, medications, and/or tube feeds per Nutrition note/order. Exchange tube in 3-5 months. Contact the [facility] clinic at [phone] to schedule the tube exchange. EP Narrative 08/16/2025 10:35 AM CDT EXAM: IR GASTROSTOMY TUBE PLACEMENT CLINICAL HISTORY: Patient with retrobulbar catheter that was placed for G-tube which was displaced. He is here for replacement of the red rubber catheter with a new G-tube Pre-Procedure Diagnosis: Malpositioned G-tube Indication: TECHNIQUE: Skin overlying the red rubber catheter was prepped and draped usual sterile fashion. Performance Management Consultant film was obtained. The tube was injected. Balloon port was aspirated until all the contents were removed. A stiff Glidewire was placed. A new 18 [place]ivian G-tube was placed. This was inflated to 9 mm cyst with dilute contrast. Contrast was injected through both ports and there is no evidence of obstruction. The increased volume was used so the balloon wouldn't stay in place. The disc height was set at 2 cm. Routine change in 3-5 months is recommended. Tube Type: Gastrostomy, [place]. Tube Connection: ENFit. Tube Size: 18 [place]ian. Low Profile: No. Disc Height: 2 cm. [...] catheter was prepped and drapedusual sterile fashion. Performance Management Consultant film was obtained. The tube was injected.Balloon port was aspirated until all the contents were removed. A stiffGlidewire was placed. A new 18 [place]ivian G-tube was placed. This was inflatedto 9 mm cyst with dilute contrast. Contrast was injected through bothports and there is no evidence of obstruction. The increased volume wasused so the balloon wouldn't stay in place. The disc height was set at 2cm. Routine change in 3-5 months is recommended. Tube Type: Gastrostomy, [place]. Tube Connection: ENFit. Tube Size: 18 [place]. Low Profile: No. Disc Height: 2 cm. [...] and fellowswere discussed. IMPRESSION: Placement of 18 [place] percutaneous gastrostomy tube. Nothing by mouth ortube for 2 hours (strict). Then use of mouth or tube for water,medications, and/or tube feeds per Nutrition note/order. Exchange tube in3-5 months. Contact the [facility] clinic at [phone] to schedule the tubeexchange. EP us Tariq [...] M.D. LAB BLOOD ADD-ON Final Re sult [facility] [address] [place] [address], [facility] STMA [facility] [address] [place] [address] * CBC with Differential, Blood (08/16/2025 6:39 [...] M.D. LAB BLOOD ADD-ON Final Re sult [facility] [address] [place] [address], [facility] [address] [place] [address] [facility]PM [facility] [address] [place] [address] documented in this encounter Visit Diagnoses Diagnosis [...] M.D.) documented in this encounter Care Teams Medical Laboratory Scientist Relationship Specialty Start Date End Date None Reported, Pcp PCP - General Family Medicine 04/08/25 documented as of this encounter
[2025-08-26] VITALS (62 sets, daily range): BP systolic 95–153; BP diastolic 56–135; PULSE 69–108; RESP 12–22; TEMP 36.6–38; O2SAT 82–96; BMI 25.5
--- OUTSIDE RECORDS SUMMARY | 2025-08-26 03:55 | XMS_ITS | Encounter Summary ---
Author Organization [facility] Address [address] [place] [id number] Care Team Providers Care Arson Investigator Name Role Phone None Reported, Pcp Primary Care Provider Unavail able Encounter Details Date Type Department Care Team (Late st Contact Info) Description 07/30/2025 Clinical Communication Division of General Internal Medicine in [place], [place] [address] [place] [phone] Tamiko Malik, JALEN, C.N.P., D.N.P. [address] [place] [phone] Social History Tobacco Use Types Packs/Day Years [...] place to sleep or slept in a senior living (including now)? No 01/22/2023 Education Answer Date Recorded What is the highest level of school you have completed or the highest degree you have received? 12th grade 02/28/2020 Sex and Gender Information Value Date Recorded Sex Assigned at Male 09/16/2021 7:21 PM FLY RAISER LOCKSTITCH Legal Sex Male 10:26 AM FLY RAISER LOCKSTITCH Gender Identity Male 12/17/2020 7:55 PM FLY RAISER LOCKSTITCH Sexual Orientation Straight 12/17/2020 7: 55 PM FLY RAISER LOCKSTITCH documented as of this encounter Plan of Treatment Not on file documented as of this encounter Visit Diagnoses Not on filedocumented in this encounter Care Teams Arson Investigator Relationship Specialty Start Date End Date None Reported, Pcp PCP - General Family Medicine 04/08/25 documented as of this encounter
--- OUTSIDE RECORDS SUMMARY | 2025-08-26 03:55 | XMS_ITS | Clinical Summary ---
Author Organization [facility] Address [address] [place] [address] Care Team Providers Care Supervisor Wet Pour Name Role Phone None Reported, Pcp Primary Care Provider Unavail able Source Comments Patient records contain information from all sites at [facility]. For routine questions regarding patient records, call [phone] during business hours, M-F 8:00 AM - 5:00 PM Central Time. Record requests for emergency care only can be directed to [phone] at any time.[facility] Allergies No known active allergies Medications * This document contains information received from the source organization and may not represent a complete record from that organization. acetaminophen (TYLENOL) 500 mg tablet Administer 2 tablets (1,000 mg total) via gastric tube every 6 (six) hours as needed for mild pain or score 1-3 of 10, moderate pain or score 4-6 of 10 or headaches. 3 Active aspirin 81 mg chewable tablet Administer 1 tablet (81 mg total) via gastric tube daily. 3 Active atorvastatin (LIPITOR) 80 mg tablet Administer 1 tablet (80 mg total) via gastric tube at bedtime. 3 Active cholecalciferol (VITAMIN D3) 10 mcg (400 Unit) tablet Administer 1 tablet (10 mcg total) via gastric tube every morning. 3 Active Additional Information Patient not taking.Reported on 07/14/2023 lisinopriL (PRINIVIL,ZESTR IL) 20 mg tablet Administer 1 tablet (20 mg total) via gastric tube daily. 3 Active apixaban (ELIQUIS) 5 mg tablet Administer 1 tablet (5 mg total) via gastric tube 2 (two) times a day. 3 Active carboxymethylce llulose (REFRESH PLUS) 0.5 % ophthalmic solution Administer 1 drop into both eyes 3 (three) times a day as needed for dry eyes. 3 Active escitalopram (LEXAPRO) 10 mg tablet Administer 1 tablet (10 mg total) via gastric tube daily. 3 Active melatonin 3 mg tablet Administer 2 tablets (6 mg total) via gastric tube at bedtime. 0 3 Active sennosides-docu sate sodium (SENOKOT-S) 8.6-50 mg per tablet Administer 2 tablets via gastric tube 2 (two) times a day. 3 Active SITagliptin phosphate (JANUVIA) 100 mg tablet Administer 1 tablet (100 mg total) via gastric tube daily. 3 Active loratadine (CLARITIN) 5 mg/5 mL solution Administer 10 mL (10 mg total) via gastric tube daily as needed for allergies. 3 Active simethicone (MYLICON) 80 mg chewable tablet Administer 1 tablet (80 mg total) via gastric tube 4 (four) times a day. 120 tablet 3 Active lansoprazole (PREVACID) 3 mg/mL suspension Take 10 mL (30 mg total) by mouth 2 (two) times a day. 300 mL 3 Active metoclopramide (REGLAN) 10 mg tablet Take 1 tablet (10 mg total) by mouth 3 (three) times a day. 90 tablet 1 3 Active guaiFENesin (Mucinex) 600 mg 12 hr tablet Take 600 mg by mouth daily. 3 Active gabapentin (NEURONTIN) 300 mg capsule Take 300 mg by mouth at bedtime. 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 02/10/2023 Vitrectomy Status Post 01/04/2021 Obesity Body Mass Index 30-39.9 Adult 12/24/2020 Diabetes Mellitus Type 2 Without Complication Facial Weakness From Stroke Cerebrovascular Acci dent 06/10/2020 Embolus Retina Cholesterol 01/04/2016 Hyperlipidemia 12/23/2011 Hypertension Essential Primary 12/16/2011 Overview (03/28/2017): Benign Essential Hypertension Dysphagia Oropharyngeal Phase Hemiplegia And Hemiparesis F ollowing Other Cerebrovascular Disease Affecting Right Dominant Side Resolved Problems Problem Noted Date Diagnosed Date Resolved Date Stroke 04/13/2023 04/19/2023 Azotemia 02/19/2023 04/09/2023 Leukocytosis 02/19/2023 04/09/2023 Thrombocytosis Unspecified 02/19/2023 0 04/09/2023 Occlusion And Stenosis Right Carotid Artery 07/09/2021 04/19/2023 Retinal Detachment With Sing le Break Right Eye 12/18/2020 08/31/2021 Overview (12/18/2020): Added automatically from request for surgery [id number] Dysarthria 06/10/2020 04/19/2023 Stroke 01/27/2020 12/24/2020 Smoking Tobacco Use Personal History 11/22/2019 07/09/2021 Dependence Nicotine 11/13/2019 12/24/19 21 Cataract Senile Nuclear Sclerosis Right 09/26/2019 07/09/2021 Overview (09/26/2019): Added automatically from request for surgery [id number] Cataract Senile Nuclear Sclerosis Left 09/26/2019 07/09/2021 Overview (09/26/2019): Added automatically from request for surgery [id number] Stenosis Carotid Artery Left 01/13/2012 07/09/2021 Hemiplegia And Hemiparesis F ollowing Cerebral Infarction Affecting Right Nondominant Side 12/24/2020 Encounters * This document contains information received from the source organization and may not represent a complete record from that organization. Date Type Department Care Team Description 08/16/2025 6:10 AM CDT - 08/16/2025 11:39 AM CDT Emergency [facility] Emergency Department [address] [place] [phone] Jorge Alberto Diaz D.O. Winters, Richard C, M.D. Dysfunction Gastric Tube Initial (Primary Dx) Discharge Disposition: Home or Self Care 08/15/2025 9:52 AM CDT - 08/15/2025 1:01 PM CDT Hospital Encounter Department of Radiology in [place], [place] [address] [place] [phone] Tamiko Malik APRN, C.N.P., D.N.P. Derik Hernandez M.D. Fahmy Abdou Gad Alla, Lara M, M.D. Dietary Counseling And Surveillance For Enteral Nutrition Discharge Disposition: Home or Self Care 07/31/2025 Documentation Division of General Internal Medicine in [place], [place] [address] [place] [phone] Lashawn Murphy, R.N. Scheduling 07/30/2025 Orders Only Division of Endocrinology in [address] [phone] Lashawn Murphy, R.N. Dietary Counseling And Surveillance For Enteral Nutrition (Primary Dx) 07/30/2025 Clinical Communication Division of General Internal Medicine in [place], [place] [address] [place] [phone] Tamiko Malik APRN, C.N.P., D.N.P. from Last 3 Months Immunizations Immunization Administration Dates Next Due PCV13 03/03/2021 RZV (SHINGRIX) 09/23/2022,07/09/2021 SARS-COV-2 (COVID-19) - PFIZ ER (Discontinued)(12 years or older) 11/03/2021,02/11/2021,01/20/2021 SARS-COV-2 (COVID-19) - PFIZ ER BIVALENT TS(Discontinued)(12 YEARS OR OLDER) 11/02/2022 Tdap 11/27/2013 influenza vaccine QV(FLUBLOK ) (18 years or older) (PF) 11/17/2020 Family History Medical History Relation Name Comments Lung cancer Father Saw Carrera Diabetes Sister Amblyopia Neg Hx Anesthesia problems Neg Hx Blindness Neg Hx Cataracts Neg Hx Glaucoma Neg Hx Macular degeneration Neg Hx Retinal degeneration Neg Hx Retinal detachment Neg Hx Strabismus Neg Hx Relation Name Status Comments Father Saw Carrera Sister Social History Tobacco Use Types Packs/Day Years Used Date Smoking Tobacco: Former Cigarettes 1 40 0 01/27/1980 - 01/27/2020 Passive Smoke Exposure: Current Smokeless Tobacco: Never Tobacco Cessation:Counseling Given: Not Answered Comments:Past and current smoke exposure Alcohol Use Standard Drinks/Week Comments Not [...] Sex Assigned at Male 09/16/2021 7:21 PM CERTIFIED RESIDENTIAL MEDICATION AIDE Legal Sex Male 10:26 AM CERTIFIED RESIDENTIAL MEDICATION AIDE Gender Identity Male 12/17/2020 7:55 PM CERTIFIED RESIDENTIAL MEDICATION AIDE Sexual Orientation Straight 12/17/2020 7: 55 PM CERTIFIED RESIDENTIAL MEDICATION AIDE Last Filed Vital Signs Vital Sign Reading Time Taken Comments Blood Pressure 117/68 08/16/2025 11:45 AM CDT Pulse 71 08/16/2025 10:15 AM CDT Temperature 36.5 C (97.7 F) 08/16/2025 9:15 AM CDT Respiratory Rate 16 08/16/2025 11:4 5 AM CDT Oxygen Saturation 95% 08/16/2025 11: 45 AM CDT Inhaled Oxygen Concentration - - Weight 81.5 kg (179 lb 10.8 oz) 025 10:52 AM CDT Height 180 cm (5' 10.87) 07/14/2023 8:29 AM CDT Body Mass Index 25.15 07/14/2023 8:29 AM CDT Plan of Treatment Health Maintenance Due Date Last Done Comments CT Colonography 1959 Cologuard 1960 Diabetic Office Visit with Foot Exam 1959 Hepatitis C Screening 1960 Office Visit for Blood Pressure Check / Re-check 1959 RSV vaccine - (32-36 weeks) or 50+ years (1 - Risk 50-74 years 1-dose series) 2009 Hepatitis B Vaccines (1 of 3 - Risk 3-dose series) 2019 Pneumococcal vaccine (50+ years) (2 of 2 - PPSV23, PCV20, or PCV21) 04/28/2021 03/03/2021 Urine Albumin 08/11/2023 08/11/2022, 07/09/2021 DTaP,Tdap,and Td Vaccines (2 - Td or Tdap) 11/27/2023 11/27/2013 Lung Cancer Screening 02/11/2024 02/10/2023 , 11/26/2020, 04/24/2020 Diabetic Eye Exam 07/25/2024 07/25/2023, , 09/26/2019 Depression Screening (Annual PHQ-2) 11/06/2024 COVID-19 Vaccine ( season) 2025 03/05/2024, 11/02/2022, 11/03/2021, Additional history exists Influenza Vaccine (#1) 2025 11/17/2020 Hemoglobin A1C 02/10/2026 08/12/2025, 12/07, 05/28/2024, Additional history exists Colonoscopy 04/23/2026 04/23/2021 Colorectal Cancer Surveillance 04/23/2026 Creatinine Level (Kidney Function Test) 08/16/2026 08/16/2025, 08/12/2025, 12/17/2024, Additional history exists Potassium Level 08/16/2026 08/16/2025, 10/0 05/2025, 12/17/2024, Additional history exists Sodium Level 08/16/2026 08/16/2025, 10/0 05/2025, 12/17/2024, Additional history exists Lipid (Cholesterol) Screening 02/11/2028 02/10/2023, 05/06/2022, 02/18/2022, Additional history exists Zoster Vaccines Completed 09/23/2022, 07/09/2021 Abdominal Aortic Aneurysm (AAA) Screen Completed 04/04/2023, 03/26/2023, 02/10/2023, Additional history exists Fall Risk Screen (Annual) Completed 08/15/2025 IPV Vaccines Aged Out No longer eligi ble based on patient's age to complete this topic Medical Devices Implanted Type Area Anesthesiology Tech Device Identifier Shelf Expiration Date Model / Serial / Lot Piedadt Blanchege 0.014 [id number] - [id number] Implanted:Qty : 1 on 01/27/2020 at [facility] Cardiac Stent [employer] 05/13/2021 [id number]-[id number] / / [id number] Lens Tcn [id number] Bicnvx +19.0d - [id number] - [id number] Implanted:Qty : 1 on 12/02/2019 by Chirag Harrington M.D. at [facility] Ocular Lens Right: Eye [employer] (Previously DANILO) [id number] 06/19/2023 [id number] / [id number] / Lens Tcn [id number] Bicnvx +18.5d - [id number] - [id number] Implanted:Qty : 1 on 12/16/2019 by Chirag Harrington M.D. at [facility] Ocular Lens Left: Eye [employer] (Previously DANILO) [id number] 04/27/2022 [id number] / [id number] / Procedures Procedure Name Priority Date/Time Associated Diagnosis Comments IR GASTROSTOMY TUBE PLACEMENT RAD - Semiurgent (Fast; most ED patients; some inpatients) 08/16/2025 9:05 AM CDT BASIC METABOLIC PANEL, S/P STAT 08/16/2025 6:39 AM CDT CBC WITH DIFFERENTIAL, B STAT 08/16/2025 6:39 AM CDT IR GASTROSTOMY TUBE EXCHANGE RAD - Routine (most inpatients and all outpatients) 08/15/2025 12:34 PM CDT Dietary Counseling And Surveillance For Enteral Nutrition CT ABDOMEN PELVIS WITH IV CONTRAST RAD - Routine (most inpatients and all outpatients) 04/04/2023 4:28 PM CDT HEMOGLOBIN A1C, B STAT 02/10/2023 6:5 9 PM CDT LIPID PANEL, S STAT 02/10/2023 6:[address] CHEST WITH IV CONTRAST RAD - Emergent (Fastest; for the most critically ill patients) 02/10/2023 5:03 PM CDT ALBUMIN, RANDOM, U Routine 08/11/2022 4: 33 PM CDT Diabetes Mellitus Type 2 (HCC) COLONOSCOPY 04/23/2021 8:06 AM CDT from Last 3 Months or Most Recently Relevant to Health Maintenance Results * IR Gastrostomy Tube Placement (08/16/2025 9:05 AM CDT) Anatomical Region Laterality Modality Abdomen, Vascular Interventi onal RST LOS, Vascular Interventional ARZ LOS, Vascular Interventional FLA LOS N/A X-Ray Angiography Impressions 08/16/2025 10:35 AM CDT Placement of 18 Andorran percutaneous gastrostomy tube. Nothing by mouth or tube for 2 hours (strict). Then use of mouth or tube for water, medications, and/or tube feeds per Nutrition note/order. Exchange tube in 3-5 months. Contact the [facility] clinic at [phone] to schedule the tube exchange. EP Narrative 08/16/2025 10:35 AM CDT EXAM: IR GASTROSTOMY TUBE PLACEMENT CLINICAL HISTORY: Patient with retrobulbar catheter that was placed for G-tube which was displaced. He is here for replacement of the red rubber catheter with a new G-tube Pre-Procedure Diagnosis: Malpositioned G-tube Indication: TECHNIQUE: Skin overlying the red rubber catheter was prepped and draped usual sterile fashion. Wire Steward film was obtained. The tube was injected. Balloon port was aspirated until all the contents were removed. A stiff Glidewire was placed. A new 18 Andorran G-tube was placed. This was inflated to 9 mm cyst with dilute contrast. Contrast was injected through both ports and there is no evidence of obstruction. The increased volume was used so the balloon wouldn't stay in place. The disc height was set at 2 cm. Routine change in 3-5 months is recommended. Tube Type: Gastrostomy, ak chin. Tube Connection: ENFit. Tube Size: 18 Andorran. Low Profile: No. Disc Height: 2 cm. [...] catheter was prepped and drapedusual sterile fashion. Wire Steward film was obtained. The tube was injected.Balloon port was aspirated until all the contents were removed. A stiffGlidewire was placed. A new 18 Andorran G-tube was placed. This was inflatedto 9 mm cyst with dilute contrast. Contrast was injected through bothports and there is no evidence of obstruction. The increased volume wasused so the balloon wouldn't stay in place. The disc height was set at 2cm. Routine change in 3-5 months is recommended. Tube Type: Gastrostomy, ak chin. Tube Connection: ENFit. Tube Size: 18 Andorran. Low Profile: No. Disc Height: 2 cm. [...] and fellowswere discussed. IMPRESSION: Placement of 18 Andorran percutaneous gastrostomy tube. Nothing by mouth ortube for 2 hours (strict). Then use of mouth or tube for water,medications, and/or tube feeds per Nutrition note/order. Exchange tube in3-5 months. Contact the [facility] clinic at [phone] to schedule the tubeexchange. EP us Tariq TROTTER IR PROCEDURES Final R esult * CBC with Differential, Blood (08/16/2025 6:39 [...] 6:39 AM CDT 08/16/2025 6:43 AM CDT us Tariq Isidro M.D. LAB BLOOD ADD-ON Final Re sult Performing Organization Address City/[facility]/ZIP Co de Phone Number [facility] [place] [address] [place] [address], [facility] [address] [place] [address] [facility] [address] [place] [address] * (ABNORMAL) Basic Metabolic Panel (08/16/2025 6:39 AM CDT) [facility] Potassium, P 4.7 3.6 - 5.2 mmol/L [...] 6:39 AM CDT 08/16/2025 6:43 AM CDT us Tariq Isidro M.D. LAB BLOOD ADD-ON Final Re sult [facility] [address] [place] [address], [facility] [address] [place] [address] * IR Gastrostomy Tube Exchange (08/15/2025 12:34 PM CDT) Anatomical Region Laterality Modality Abdomen, Vascular Interventi onal RST LOS, Vascular Interventional ARZ LOS, Vascular Interventional FLA LOS N/A X-Ray Angiography Impressions 08/15/2025 1:53 PM CDT Exchange of an 18 Andorran percutaneous gastrostomy tube. The tube is ready for use. Exchange tube in 3-[address] [facility] at [phone] to schedule the tube exchange. NR Narrative 08/15/2025 1:53 PM CDT EXAM: IR GASTROSTOMY TUBE EXCHANGE CLINICAL HISTORY: Routine gastrostomy tube exchange Encounter Reason: Routine. TECHNIQUE: The patient was placed supine on the fluoroscopy table. The abdomen and gastrostomy tube were prepared and draped in sterile fashion. Wire Steward image demonstrates a percutaneous gastrostomy tube. Contrast injection through the tube demonstrated satisfactory position in the stomach. The tube was exchanged for a new gastrostomy tube with dilute contrast in the balloon (specifications below). Final contrast injection through the tube confirmed satisfactory function and position in the stomach. No immediate complication. Tube Type: Gastrostomy. Tube Connection: ENFit. Tube Size: 18 Andorran. Low Profile: No. Disc Height: 3 cm. [...] were prepared and draped in sterile fashion. Wire Steward imagedemonstrates a percutaneous gastrostomy tube. Contrast injection throughthe tube demonstrated satisfactory position in the stomach. The tube wasexchanged for a new gastrostomy tube with dilute contrast in the balloon(specifications below). Final contrast injection through the tubeconfirmed satisfactory function and position in the stomach. No immediatecomplication. Tube Type: Gastrostomy. Tube Connection: ENFit. Tube Size: 18 Andorran. Low Profile: No. Disc Height: 3 cm. [...] fellowswere discussed. IMPRESSION: Exchange of an 18 Andorran percutaneous gastrostomy tube. The tube is readyfor use. Exchange tube in 3-[address] [facility] [phone] to schedule the tube exchange. NR Tamiko Malik APRN, C.N.P., D.N.P. IMG IR PROCED URES Final Result * CT Abdomen Pelvis with IV Contrast (04/04/2023 4:28 PM CDT) Anatomical Region Laterality Modality Abdomen, Pelvis, Abdominal R ST LOS, Abdominal ARZ LOS, Abdominal FLA LOS N/A Computed Tomograp hy, Computed Tomography 04/04/2023 4:12 PM CDT Impressions 04/04/2023 4:56 PM CDT 1. No acute finding in the abdomen or pelvis. 2. Redemonstrated severe arterial atherosclerotic changes with at least moderate luminal narrowing of the proximal superior mesenteric artery. Narrative 04/04/2023 4:56 PM CDT EXAM: CT ABDOMEN PELVIS WITH IV CONTRAST COMPARISON: CT abdomen/pelvis 03/26/2023. FINDINGS: Percutaneous gastrostomy tube with retention balloon in the distal gastric body. The stomach is decompressed and the balloon does not appear to be obstructive. The caliber of the small bowel and colon is normal. Liquid stool is present within the rectosigmoid colon. Focus of calcification along the posterior right hepatic lobe. Small hypoattenuating lesion in hepatic segment 2, likely a cyst or hemangioma. Small flash-filling hemangioma versus vascular shunt in subcapsular hepatic segment 6. Tiny fat-containing umbilical hernia. Redemonstrated severe partially-calcified arterial atheromatous disease causing nvew-ll-jjgodhke narrowing of the infrarenal abdominal aorta and mpmkrhrn-xo-ltulrc narrowing of the iliofemoral arteries. Partially-calcified plaque causes at least moderate luminal narrowing of the proximal superior mesenteric artery (series 8, images 79-83 and series 6, image 62). Coronary artery calcification. Centrally calcified pulmonary granuloma in the left lower lobe. Mild left basilar atelectasis. Procedure Note Billy Pham M.D., Ph.D. - 04/04/2023 EXAM: CT ABDOMEN PELVIS WITH IV CONTRAST COMPARISON: CT abdomen/pelvis 03/26/2023. FINDINGS: Percutaneous gastrostomy tube with retention balloon in the distal gastricbody. The stomach is decompressed and the balloon does not appear to be obstructive. Thecaliber of the small bowel and colon is normal. Liquid stool is present within the rectosigmoid colon. Focus of calcification along the posterior right hepatic lobe. Smallhypoattenuating lesion in hepatic segment 2, likely a cyst or hemangioma. Small flash-fillinghemangioma versus vascular shunt in subcapsular hepatic segment 6. Tiny fat-containing umbilical hernia. Redemonstrated severe partially-calcified arterial atheromatous diseasecausing eamq-ya-bpfyyewk narrowing of the infrarenal abdominal aorta and mxosigov-aw-xhcjbbmjzhvmuhg of the iliofemoral arteries. Partially-calcified plaque causes at least moderate luminalnarrowing of the proximal superior mesenteric artery (series 8, images 79-83 and series 6, image62). Coronary artery calcification. Centrally calcified pulmonary granuloma inthe left lower lobe. Mild left basilar atelectasis. IMPRESSION: 1. No acute finding in the abdomen or pelvis. 2. Redemonstrated severe arterial atherosclerotic changes with at leastmoderate luminal narrowing of the proximal superior mesenteric artery. us Antonio Wiley M.D., Ph.D. IMG CT PROCEDURES Fi nal Result * Lipid Panel (02/10/2023 6:59 PM CDT) Triglycerides 113 mg/dL 02/10/2023 7:59 PM CDT DTL Comment: ----REFERENCE VALUE---- Normal: <150 mg/dL Borderline High: 150-199 mg/dL High: 200-499 mg/dL Very High: > or =500 mg/dL Cholesterol, Total 136 mg/dL 2022 7:59 PM CDT DTL Comment: ----REFERENCE VALUE---- Desirable: < 200 mg/dL Borderline High: 200 - 239 mg/dL High: > or = 240 mg/dL Cholesterol, LDL, Calculated 68 mg/dL 02/10/2023 7:59 PM CDT DTL Comment: ----REFERENCE VALUE---- Desirable: <100 mg/dL Above Desirable: 100-129 mg/dL Borderline High: 130-159 mg/dL High: 160-189 mg/dL Very High: >=190 mg/dL ----ADDITIONAL INFORMATION---- LDL cholesterol calculated using the Trevino/NIH equation. Cholesterol, HDL, S 48 >=40 mg/dL 02/10/2023 7:59 PM CDT DTL Cholesterol, Non-HDL, Calculated 88 mg/dL 02/10/2023 7:59 PM CDT DTL Comment: ----REFERENCE VALUE---- Desirable: <130 mg/dL Above Desirable: 130-159 mg/dL Borderline High: 160-189 mg/dL High: 190-219 mg/dL Very High: > or =220 mg/dL Fasting (8 HR or more) Unknown 02/10/2023 7:31 PM CDT DTL Blood (Blood, Venous) 02/10/2023 6:59 PM CDT 02/10/2023 7:31 PM CDT us Eros Conrad M.D. LAB BLOOD ADD-ON Final Resul t [facility] [address] [place] [address], [place] DTL [facility] [address] [place] [address] * CT Chest with IV Contrast (02/10/2023 5:03 PM CDT) Anatomical Region Laterality Modality Chest, Thoracic RST LOS, Tho racic ARZ LOS, Thoracic ARZ LOS, Thoracic FLA LOS N/A Computed Tomography, Compute d Tomography 02/10/2023 5:23 PM CDT Impressions 02/10/2023 5:51 PM CDT No acute traumatic findings in the chest, abdomen, or pelvis. Narrative 02/10/2023 5:51 PM CDT EXAM: CT CHEST WITH IV CONTRAST, CT ABDOMEN PELVIS WITH IV CONTRAST COMPARISON: CT 11/26/2020 FINDINGS: CHEST: Normal caliber thoracic aorta without acute injury. Vascular calcifications, including coronary arteries. Carotid stents. No focal consolidation, pleural effusion, or pneumothorax. Calcified mediastinal/hilar lymph nodes. Unchanged benign-appearing left lower lobe nodule with central calcification, compatible with a calcified granuloma. Few tiny unchanged micronodules. Degenerative changes spine. Unchanged sclerosis in the right 3rd rib. No displaced rib fractures. ABDOMEN/PELVIS: Motion artifact. No pelvic free fluid, hemorrhage, or solid organ injury. No free air. Probable hepatic steatosis. Probable tiny right hepatic hemangioma. Additional tiny benign-appearing lesion in the right posterior liver with tiny focus of calcification. Degenerative changes of the spine. Vasectomy. Procedure Note Max Warner M.D. - 02/10/2023 EXAM: CT CHEST WITH IV CONTRAST, CT ABDOMEN PELVIS WITH IV CONTRAST COMPARISON: CT 11/26/2020 FINDINGS: CHEST: Normal caliber thoracic aorta without acute injury. Vascularcalcifications, including coronary arteries. Carotid stents. No focal consolidation, pleural effusion, or pneumothorax. Calcifiedmediastinal/hilar lymph nodes. Unchanged benign-appearing left lower lobe nodule with centralcalcification, compatible with a calcified granuloma. Few tiny unchanged micronodules. Degenerative changes spine. Unchanged sclerosis in the right 3rd rib. Nodisplaced rib fractures. ABDOMEN/PELVIS: Motion artifact. No pelvic free fluid, hemorrhage, or solid organ injury.No free air. Probable hepatic steatosis. Probable tiny right hepatic hemangioma.Additional tiny benign-appearing lesion in the right posterior liver with tiny focus of calcification.Degenerative changes of the spine. Vasectomy. IMPRESSION: No acute traumatic findings in the chest, abdomen, or pelvis. Nova Dumont M.D., M.S. IMG CT PROCEDURES Fi nal Result * Albumin, Random, Urine (08/11/2022 4:33 PM CDT) Microalbumin <12.0 mg/L 08/11/2022 4:50 PM CDT CNFL Comment:If clinically indica alon, contact the lab for additional testing. Creatinine 138 mg/dL 08/11/2022 4:50 PM CDT CNFL Albumin/Creatinine Ratio <9 <17 mg/g 08/11/2022 4:50 PM CDT CNFL Comment: This ratio may not correspond with the reference range because one or both of the values used to calculate the ratio was above or below the quantification limits. Urine (Urine, Midstream) 08/11/2022 4:33 PM CDT 08/11/2022 4:33 PM CDT Garrison Thomas M.D. LAB URINE ORDERABLES Hilda l Result [facility] [address] [place] [id number], [facility] [address] [id number] * COLONOSCOPY (04/23/2021 8:06 AM CDT) Anatomical Region Laterality Modality Other Narrative Procedure Note Derik Trujillo M.D. - 04/23/2021 8:06 AM CDT [facility] Name: Ranulfo Carrera Procedure Date: 04/23/2021 8:06 AM Date of : 1960 Age: 61 Gender: Male Procedure: Colonoscopy Providers: Derik Trujillo, Zach Cartagena (Ordering Provider) Referring Provider: Zach Cartagena Pre-op Diagnoses: Screening for colorectal malignant neoplasm Post-op Diagnoses: - One 2 mm polyp in the ascending colon, removed with a cold biopsy forceps. Resected and retrieved. - Two 3 to 4 mm polyps in the transverse colon, removed with a cold snare. Resected and retrieved. - Non-bleeding internal hemorrhoids. - The examined portion of the ileum was normal. Recommendation: - Discharge patient to home. - Await pathology results. - Repeat colonoscopy in 5 years for surveillance. - Return to primary care physician PRN. Findings: The perianal and digital rectal examinations were normal. A 2 mm polyp was found in the ascending colon. The polyp was sessile. The polyp was removed with a cold biopsy forceps. Resection and retrieval were complete. Estimated blood loss was minimal. Two pedunculated and sessile polyps were found in the transversecolon. The polyps were 3 to 4 mm in size. These polyps were removed with acold snare. Resection and retrieval were complete. Estimated blood losswas minimal. Non-bleeding internal hemorrhoids were found during retroflexion. The hemorrhoids were small and Grade I (internal hemorrhoids that do not prolapse). The terminal ileum appeared normal. Medicines: Propofol per Anesthesia Estimated Blood Loss: Estimated blood loss was minimal. Complications: No immediate complications. Estimated blood loss: Minimal. Procedure Details: The patient was seen, evaluated, and history reviewed. Airway and heart and lung exams were performed and were satisfactory for plannedsedation care. The risks, benefits and alternatives for the procedure and sedation were discussed andinformed consent was obtained. A procedural pause was conducted in the presence of assisting personnelto verify the correct patient identity and procedureto be performed. Throughout the procedure, the patient's blood pressure, pulse, and oxygen saturations were monitored continuously. The Colonoscope was introduced under directvision through the anus and advanced to the terminalileum, with identification of the appendiceal orificeand IC valve. The colonoscopy was performed without difficulty. The patient tolerated the procedure well. The quality of the bowel preparation was evaluated using the BBPS ([place] BowelPreparation Scale) with scores of: Right Colon = 3,Transverse Colon = 3 and Left Colon = 3 (entire mucosa seen well with no residual staining, small fragmentsof stool or opaque liquid). The total BBPS scoreequals 9. Sedation: Anesthesia was administered by an anesthesia professional. Thefollowing parameters were monitored: oxygen saturation, heart rate, blood pressure, respiratory rate, EKG, adequacy of pulmonary ventilation,and response to care. Derik Trujillo, 04/23/2021 10:03:17 AM This report has been signed electronically. Number of Addenda: 0 Note Initiated On: 04/23/2021 8:06 AM Zach Cartagena M.D. GI PROCEDURE ORDERABLES Fi nal Result from Last 3 Months or Most Recently Relevant to Health Maintenance Insurance [employer] [place] [address] Advance Directives For more information, please contact: [phone] Documents on File Type Date Recorded Patient Biomedical Engineering Technologist Expl anation Advance Directives 08/16/2025 1:[address]/MOLST * Full Code (Latest Code Status on File) Date Activated Date Inactivated Comments 04/13/2023 2:11 PM 05/24/2023 2:02 PM Question Answer Comments Full Code: Discussed * Full Code Date Activated Date Inactivated Comments 02/10/2023 5:35 PM 04/13/2023 2:10 PM Question Answer Comments Full Code: Not Discussed Due to: Patient does not have the capaci ty * Full Code Date Activated Date Inactivated Comments 04/23/2021 7:51 AM 04/23/2021 12:42 PM Question Answer Comments Full Code: Discussed * Full Code Date Activated Date Inactivated Comments 01/30/2020 2:46 PM 02/20/2020 2:35 PM Question Answer Comments Full Code: Not Discussed Due to: Not medically appropriate * Full Code Date Activated Date Inactivated Comments 01/27/2020 8:27 PM 01/30/2020 2:25 PM Question Answer Comments Full Code: Not Discussed Due to: Not medically appropriate Care Teams Supervisor Wet Pour Relationship Specialty Start Date End Date None Reported, Pcp PCP - General Family Medicine 04/08/25
--- OUTSIDE RECORDS SUMMARY | 2025-08-26 03:55 | XMS_ITS | Encounter Summary ---
Author Organization [facility] Address [address] [place] [address] Care Team Providers Care Derrick Barge Operator Name Role Phone None Reported, Pcp Primary Care Provider Unavail able Reason for Referral * Outpatient (Routine) - Closed Specialty Diagnoses / Procedures Referred By Rahel dacosta Referred To Contact Radiology Diagnoses Dietary Counseling And Surveillance For Enteral Nutrition Procedures IR Gastrostomy Tube Exchange Tamiko Malik APRN, C.N.P., D.N.P. [address] [place] [phone] Phone: tel: fax: [facility] Referral ID Status Reason Start Date Expiration Date Visits Re quested Visits Authorized [id number] Closed 07/30/2025 10/30/2026 1 1 * Outpatient (Routine) - Authorized Specialty Diagnoses / Procedures Referred By Rahel dacosta Referred To Contact Endocrinology Diagnoses Dietary Counseling And Surveillance For Enteral Nutrition Tamiko Malik APRN, C.N.P., D.N.P. [address] [place] [phone] Phone: tel: fax: [facility] Referral ID Status Reason Start Date Expiration Date V isits Requested Visits Authorized [id number] Authorized 07/30/2025 01/29/2027 1 1 Scheduling Instructions TRIAGE ONLY Encounter Details Date Type Department Care Team (Late st Contact Info) Description 07/30/2025 Orders Only Division of Endocrinology in [place], [place] [address] [place] [address] Lashawn Murphy, RRachaelNRachael [address] [place] [address] Dietary Counseling And Surveillance For Enteral Nutrition (Primary Dx) Social History Tobacco Use Types Packs/Day Years [...] money to buy more. Never true 01/23/20 Within the past 12 months, t he [...] place to sleep or slept in a care home (including now)? No 01/22/2023 Education Answer Date Recorded What is the highest level of school you have completed or the highest degree you have received? 12th grade 02/28/2020 Sex and Gender Information Value Date Recorded Sex Assigned at Male 09/16/2021 7:21 PM COOK CHIEF Legal Sex Male 10:26 AM COOK CHIEF Gender Identity Male 12/17/2020 7:55 PM COOK CHIEF Sexual Orientation Straight 12/17/2020 7: 55 PM COOK CHIEF documented as of this encounter Plan of Treatment Scheduled Referrals Name Type Priority Associated Diagnoses Orde r Schedule Endocrinology - Home enteral medical nutrition therapy consult (clinic) Outpatient Referral Routine Dietary Counseling And Surveillance For Enteral Nutrition Expected: 07/30/2025, Expires: 10/29/2026 documented as of this encounter Results * IR Gastrostomy Tube Exchange (08/15/2025 12:34 PM CDT) Anatomical Region Laterality Modality Abdomen, Vascular Interventi onal RST LOS, Vascular Interventional ARZ LOS, Vascular Interventional FLA LOS N/A X-Ray Angiography Impressions 08/15/2025 1:53 PM CDT Exchange of an 18 Upper Sorbian percutaneous gastrostomy tube. The tube is ready for use. Exchange tube in 3-5 months. Contact the [facility] clinic at [phone] to schedule the tube exchange. NR Narrative 08/15/2025 1:53 PM CDT EXAM: IR GASTROSTOMY TUBE EXCHANGE CLINICAL HISTORY: Routine gastrostomy tube exchange Encounter Reason: Routine. TECHNIQUE: The patient was placed supine on the fluoroscopy table. The abdomen and gastrostomy tube were prepared and draped in sterile fashion. Rail Crew Member image demonstrates a percutaneous gastrostomy tube. Contrast injection through the tube demonstrated satisfactory position in the stomach. The tube was exchanged for a new gastrostomy tube with dilute contrast in the balloon (specifications below). Final contrast injection through the tube confirmed satisfactory function and position in the stomach. No immediate complication. Tube Type: Gastrostomy. Tube Connection: ENFit. Tube Size: 18 Upper Sorbian. Low Profile: No. Disc Height: 3 cm. [...] were prepared and draped in sterile fashion. Rail Crew Member imagedemonstrates a percutaneous gastrostomy tube. Contrast injection throughthe tube demonstrated satisfactory position in the stomach. The tube wasexchanged for a new gastrostomy tube with dilute contrast in the balloon(specifications below). Final contrast injection through the tubeconfirmed satisfactory function and position in the stomach. No immediatecomplication. Tube Type: Gastrostomy. Tube Connection: ENFit. Tube Size: 18 Upper Sorbian. Low Profile: No. Disc Height: 3 cm. [...] fellowswere discussed. IMPRESSION: Exchange of an 18 Upper Sorbian percutaneous gastrostomy tube. The tube is readyfor use. Exchange tube in 3-5 months. Contact the [facility] clinic [phone] to schedule the tube exchange. NR Tamiko Malik APRN, C.N.P., D.N.P. IMG IR PROCED URES Final Result documented in this encounter Visit Diagnoses Diagnosis Dietary Counseling And Surveillance For Enteral Nutrition- Primary Dietary Counseling And Surveillance For Enteral Nutrition documented in this encounter Care Teams Derrick Barge Operator Relationship Specialty Start Date End Date None Reported, Pcp PCP - General Family Medicine 04/08/25 documented as of this encounter
--- OUTSIDE RECORDS SUMMARY | 2025-08-26 03:55 | XMS_ITS | Encounter Summary ---
Author Organization [facility] Address [address] [place] [address] Care Team Providers Care Compensation Adjuster Name Role Phone None Reported, Pcp Primary Care Provider Unavail able Reason for Visit * Reason Comments Scheduling Encounter Details Date Type Department Care Team (Late st Contact Info) Description 07/31/2025 Documentation Division of General Internal Medicine in [place], [place] [address] [place] [address] Lashawn Murphy, RRachaelNRachael [address] [place] [phone] Scheduling Social History Tobacco Use Types Packs/Day Years [...] place to sleep or slept in a long-term (including now)? No 01/22/2023 Education Answer Date Recorded What is the highest level of school you have completed or the highest degree you have received? 12th grade 02/28/2020 Sex and Gender Information Value Date Recorded Sex Assigned at Male 09/16/2021 7:21 PM POWDER MILL OPERATOR Legal Sex Male 10:26 AM POWDER MILL OPERATOR Gender Identity Male 12/17/2020 7:55 PM POWDER MILL OPERATOR Sexual Orientation Straight 12/17/2020 7: 55 PM POWDER MILL OPERATOR documented as of this encounter Progress Notes * Lashawn Murphy, R.N. - 07/31/2025 9:44 AM CDT Order in for G tube replacement in IR. 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 He currently has a 8100-18 G tube last replaced in IR on 04/09/2025. Procedure scheduling and sedation per IR. He is currently on Eliquis, which does not need to be held for this procedure. No HEN appointments are needed at this time. He will not be followed by HEN [facility] Tube replacement orders sent to his PCP. Requesting next available appointment. documented in this encounter Plan of Treatment Not on file documented as of this encounter Visit Diagnoses Not on filedocumented in this encounter Care Teams Compensation Adjuster Relationship Specialty Start Date End Date None Reported, Pcp PCP - General Family Medicine 04/08/25 documented as of this encounter
--- NOTE | 2025-08-26 04:08 | CRLHL7_ITS ---
For Patients: As a result of the Cures Act, medical imaging exams and procedure reports are released immediately into your electronic medical record. You may view this report before your referring provider. If you have questions, please contact your health care provider. INDICATION: SOB. (Sic) No other history COMPARISON: 11/08/2024 TECHNIQUE: Single AP view of the chest. FINDINGS: Slightly rotated leftward. Medical Devices: None. Lung Volumes: Shallow inspiration. No significant atelectasis. Lungs: Clear lungs. Pleura and Pleural spaces: No significant pleural effusion. No pneumothorax. Mediastinum: Normal cardiomediastinal silhouette. Bony Thorax and Soft Tissues: No significant incidental findings. IMPRESSION: No acute findings. Dictated by Haris Roth MD @ 08/26/2025 4:57:21 AM (Electronically Signed)
--- NOTE | 2025-08-26 04:13 | ED.GENADULT ---
HPI - General Adult General Chief complaint: Shortness of Breath/Dyspnea <Ernestina Cruz MD - Last Filed: 08/28/25 08:35> Stated complaint: respiratory distress <Ernestina Cruz MD - Last Filed: 08/28/25 08:35> Time Seen by Provider: 08/26/25 04:07 <Ernestina Cruz MD - Last Filed: 08/28/25 08:35> Source: EMS and other <Ernestina Cruz MD - Last Filed: 08/28/25 08:35> Mode of arrival: EMS <Ernestina Cruz MD - Last Filed: 08/28/25 08:35> History of Present Illness HPI narrative: 65-year-old male, nonverbal secondary to prior stroke, resident at [facility] presents today with increased work of breathing. Per staff at [facility] they noticed he was having trouble breathing earlier and was febrile with a temperature above 101. Patient does have a history of aspiration pneumonia. Oxygen saturation was 91%. He does have a productive cough. <Ernestina Cruz MD - Last Filed: 08/28/25 08:35> Related Data Home medications: Home Medications ?Medication ?Instructions ?Recorded ?Confirmed acetaminophen 500 mg tablet 1,000 mg feeding tube BID 11/08/24 08/26/25 apixaban 2.5 mg tablet 2.5 mg feeding tube BID 11/08/24 08/26/25 aspirin 81 mg chewable tablet 1 tab feeding tube DAILY 11/08/24 08/26/25 atorvastatin 80 mg tablet 80 mg feeding tube HS 11/08/24 08/26/25 carbamide peroxide 6.5 % ear drops 3 drp otic (ear) .TUES@21 08/26/25 08/26/25 (Debrox) escitalopram oxalate 10 mg tablet 10 mg feeding tube DAILY 08/26/25 08/26/25 gabapentin 300 mg capsule 300 mg feeding tube HS 08/26/25 08/26/25 lansoprazole 30 mg oral 30 mg PO BID 08/26/25 08/26/25 suspension,delayed release lisinopril 10 mg tablet 10 mg feeding tube DAILY 08/26/25 08/26/25 loratadine 5 mg/5 mL oral solution 10 mg feeding tube DAILY 08/26/25 08/26/25 melatonin 3 mg tablet 6 mg feeding tube HS 08/26/25 08/26/25 metoclopramide HCl 10 mg tablet 10 mg feeding tube TID 08/26/25 08/26/25 sennosides 8.6 mg tablet (Natural 17.2 mg feeding tube BID 08/26/25 08/26/25 Senna Laxative) simethicone 80 mg chewable tablet 80 mg feeding tube QID 08/26/25 08/26/25 (Gas Relief 80 (simethicone)) <Ernestina Cruz MD - Last Filed: 08/28/25 08:35> Allergies/adverse reactions: Allergies Allergy/AdvReac Type Severity Reaction Status Date / Time No Known Drug Allergies Allergy Verified 11/08/24 11:10 <Ernestina Cruz MD - Last Filed: 08/28/25 08:35> Review of Systems Status of ROS: Reports: 10 or more systems reviewed and unremarkable except as noted in History and below <Ernestina Cruz MD - Last Filed: 08/28/25 08:35> [facility] Medical History: Medical History (Updated 08/27/25 @ 15:00 by Laney Moon MD) History of CVA (cerebrovascular accident) ?Z86.73 - Personal history of transient ischemic attack (TIA), and cerebral infarction without residual deficits (ICD-10) POLST (Physician Orders for Life-Sustaining Treatment) ?Z78.9 - Other specified health status (ICD-10) Chronic ischemic left MCA stroke ?I69.30 - Unspecified sequelae of cerebral infarction (ICD-10) History of gastrostomy tube placement Tobacco use ?Z72.0 - Tobacco use (ICD-10) Hypertension ?I10 - Essential (primary) hypertension (ICD-10) Hyperlipidemia ?E78.5 - Hyperlipidemia, unspecified (ICD-10) Hemiplegia affecting left nondominant side ?G81.94 - Hemiplegia, unspecified affecting left nondominant side (ICD-10) Feeding by G-tube ?Z93.1 - Gastrostomy status (ICD-10) Pulmonary embolism ?I26.99 - Other pulmonary embolism without acute cor pulmonale (ICD-10) Diabetes mellitus ?E11.9 - Type 2 diabetes mellitus without complications (ICD-10) Cataract ?H26.9 - Unspecified cataract (ICD-10) History of right MCA stroke ?Z86.73 - Personal history of transient ischemic attack (TIA), and cerebral infarction without residual deficits (ICD-10) <Ernestina Cruz MD - Last Filed: 08/28/25 08:35> Surgical History: Surgical History H/O vitrectomy ?Z98.890 - Other specified postprocedural states (ICD-10) H/O cataract extraction ?Z98.49 - Cataract extraction status, unspecified eye (ICD-10) <Ernestina Cruz MD - Last Filed: 08/28/25 08:35> Social History: Social History What is your current living situation?: I presently have a place to live Problems where you live: no known problems In the past 12 months, utilities in danger of being shut off: no In past 12 months, lack of transportation kept you from medical appts, meetings, work, or getting things needed for daily living: no In the past 12 mos, have been you worried that your food would run out before you had money to buy more?: never true In the past 12 mos, the food you bought just didn't last and you didn't have money to buy more?: never true Highest level of school completed/degree received: high school graduate Smoking Status: Former smoker Do you use any of these nicotine containing products: None How often do you have a drink containing alcohol: never AUDIT-C Alcohol total score: 0 Non-prescribed substance use: denies use Caffeine: No How often does anyone, including family, friends and others, physically hurt you: never How often does anyone, including family, friends and others, insult or talk down to you: never How often does anyone, including family, friends and others, threaten you with harm: never How often does anyone, including family, friends and others, scream or curse at you: never service: No <Ernestina Cruz MD - Last Filed: 08/28/25 08:35> Exam Narrative: Exam Narrative: Well-nourished nonverbal patient in no acute distress. He is not tachypneic. He does cough quite a bit and produces clear phlegm. HEENT: Normocephalic atraumatic. Pupils are equally round reactive to light. Extraocular muscles are intact. Conjunctivae are moist without any icterus noted. Moist mucous membranes. Cardiovascular: Heart is regular rate and rhythm. Lungs: Rhonchi bilaterally. Abdomen: Soft and nondistended with normal bowel sounds. No guarding or rebound. Patient does not appear uncomfortable with palpation of the abdomen. G-tube in place. Skin: Well perfused without any obvious rashes. <Ernestina Cruz MD - Last Filed: 08/28/25 08:35> Const: Vital Signs, click to edit/add: Vital Signs - 24 hr 08/26/25 04:02 08/26/25 04:10 08/26/25 04:15 Temperature 100.4 F H Pulse Rate 104 H 92 Pulse Rate [Pulse Oximeter] 95 Respiratory Rate 22 Blood Pressure Blood Pressure [Ri ght Upper Arm] 153/89 H Pulse Oximetry 91 92 93 Oxygen Delivery Me thod Room Air Oxygen Flow Rate 08/26/25 04:18 08/26/25 04:30 08/26/25 04:34 Temperature Pulse Rate 93 94 101 H Pulse Rate [Pulse Oximeter] Respiratory Rate Blood Pressure Blood Pressure [Ri ght Upper Arm] Pulse Oximetry 93 92 92 Oxygen Delivery Me thod Oxygen Flow Rate 08/26/25 04:45 08/26/25 04:49 08/26/25 05:00 Temperature Pulse Rate 97 95 Pulse Rate [Pulse Oximeter] Respiratory Rate Blood Pressure 138/72 Blood Pressure [Ri ght Upper Arm] Pulse Oximetry 93 90 Oxygen Delivery Me thod Oxygen Flow Rate 08/26/25 05:02 08/26/25 05:15 08/26/25 05:30 Temperature Pulse Rate 96 94 92 Pulse Rate [Pulse Oximeter] Respiratory Rate Blood Pressure 149/76 H Blood Pressure [Ri ght Upper Arm] Pulse Oximetry 82 L 92 93 Oxygen Delivery Me thod Oxygen Flow Rate 08/26/25 05:45 08/26/25 05:56 08/26/25 06:00 Temperature Pulse Rate 98 90 102 H Pulse Rate [Pulse Oximeter] Respiratory Rate Blood Pressure 128/78 Blood Pressure [Ri ght Upper Arm] Pulse Oximetry 96 84 L 94 Oxygen Delivery Me thod Oxygen Flow Rate 08/26/25 06:01 08/26/25 06:15 08/26/25 06:16 Temperature Pulse Rate 108 H 95 94 Pulse Rate [Pulse Oximeter] Respiratory Rate Blood Pressure 139/126 H 126/71 Blood Pressure [Ri ght Upper Arm] Pulse Oximetry 95 94 94 Oxygen Delivery Me thod Oxygen Flow Rate 08/26/25 06:30 08/26/25 06:31 08/26/25 06:51 Temperature Pulse Rate 100 104 H 90 Pulse Rate [Pulse Oximeter] Respiratory Rate Blood Pressure 134/76 Blood Pressure [Ri ght Upper Arm] Pulse Oximetry 95 96 94 Oxygen Delivery Me thod Oxygen Flow Rate 08/26/25 07:00 08/26/25 07:00 08/26/25 07:02 Temperature Pulse Rate 84 86 Pulse Rate [Pulse Oximeter] Respiratory Rate Blood Pressure 132/81 Blood Pressure [Ri ght Upper Arm] Pulse Oximetry 95 92 95 Oxygen Delivery Me thod Oxygen Flow Rate 08/26/25 07:15 08/26/25 07:16 08/26/25 07:30 Temperature Pulse Rate 87 87 85 Pulse Rate [Pulse Oximeter] Respiratory Rate Blood Pressure 142/74 H Blood Pressure [Ri ght Upper Arm] Pulse Oximetry 89 89 96 Oxygen Delivery Me thod Oxygen Flow Rate 08/26/25 07:31 08/26/25 07:45 08/26/25 07:45 Temperature Pulse Rate 88 88 89 Pulse Rate [Pulse Oximeter] Respiratory Rate 20 Blood Pressure 128/73 131/77 Blood Pressure [Ri ght Upper Arm] Pulse Oximetry 94 92 94 Oxygen Delivery Me thod Nasal Cannula Oxygen Flow Rate 1 08/26/25 07:47 08/26/25 07:48 08/26/25 08:00 Temperature Pulse Rate 85 86 88 Pulse Rate [Pulse Oximeter] Respiratory Rate Blood Pressure 131/77 Blood Pressure [Ri ght Upper Arm] Pulse Oximetry 93 94 93 Oxygen Delivery Me thod Oxygen Flow Rate 08/26/25 08:01 08/26/25 08:15 08/26/25 08:15 Temperature 98.9 F Pulse Rate 92 85 Pulse Rate [Pulse Oximeter] Respiratory Rate Blood Pressure 153/135 H Blood Pressure [Ri ght Upper Arm] Pulse Oximetry 91 90 Oxygen Delivery Me thod Oxygen Flow Rate 08/26/25 08:34 08/26/25 08:35 08/26/25 08:40 Temperature Pulse Rate 80 81 75 Pulse Rate [Pulse Oximeter] Respiratory Rate Blood Pressure 129/56 L Blood Pressure [Ri ght Upper Arm] Pulse Oximetry 89 90 90 Oxygen Delivery Me thod Oxygen Flow Rate 08/26/25 08:41 08/26/25 08:45 08/26/25 09:00 Temperature Pulse Rate 74 75 71 Pulse Rate [Pulse Oximeter] Respiratory Rate 12 20 Blood Pressure Blood Pressure [Ri ght Upper Arm] Pulse Oximetry 90 90 91 Oxygen Delivery Me thod Oxygen Flow Rate 08/26/25 09:01 08/26/25 09:15 08/26/25 09:30 Temperature Pulse Rate 71 69 71 Pulse Rate [Pulse Oximeter] Respiratory Rate 19 20 Blood Pressure 123/61 Blood Pressure [Ri ght Upper Arm] Pulse Oximetry 91 91 92 Oxygen Delivery Me thod Oxygen Flow Rate 08/26/25 09:31 08/26/25 09:45 08/26/25 09:58 Temperature 98.3 F Pulse Rate 70 72 Pulse Rate [Pulse Oximeter] Respiratory Rate 21 14 Blood Pressure 132/63 Blood Pressure [Ri ght Upper Arm] Pulse Oximetry 93 93 Oxygen Delivery Me thod Oxygen Flow Rate 08/26/25 10:00 08/26/25 10:02 08/26/25 10:15 Temperature Pulse Rate 69 73 83 Pulse Rate [Pulse Oximeter] Respiratory Rate 12 Blood Pressure 132/66 Blood Pressure [Ri ght Upper Arm] Pulse Oximetry 95 94 94 Oxygen Delivery Me thod Oxygen Flow Rate 08/26/25 10:30 08/26/25 10:32 08/26/25 10:45 Temperature Pulse Rate 74 76 72 Pulse Rate [Pulse Oximeter] Respiratory Rate Blood Pressure 123/61 Blood Pressure [Ri ght Upper Arm] Pulse Oximetry 94 94 92 Oxygen Delivery Me thod Oxygen Flow Rate 08/26/25 11:00 08/26/25 11:02 08/26/25 11:15 Temperature Pulse Rate 73 75 71 Pulse Rate [Pulse Oximeter] Respiratory Rate Blood Pressure 118/71 Blood Pressure [Ri ght Upper Arm] Pulse Oximetry 94 95 91 Oxygen Delivery Me thod Oxygen Flow Rate <Ernestina Cruz MD - Last Filed: 08/28/25 08:35> Vital Signs, click to edit/add: Vital Signs - 24 hr 08/26/25 04:02 08/26/25 04:10 08/26/25 04:15 Temperature 100.4 F H Pulse Rate 104 H 92 Pulse Rate [Pulse Oximeter] 95 Respiratory Rate 22 Blood Pressure Blood Pressure [Ri ght Upper Arm] 153/89 H Pulse Oximetry 91 92 93 Oxygen Delivery Me thod Room Air Oxygen Flow Rate 08/26/25 04:18 08/26/25 04:30 08/26/25 04:34 Temperature Pulse Rate 93 94 101 H Pulse Rate [Pulse Oximeter] Respiratory Rate Blood Pressure Blood Pressure [Ri ght Upper Arm] Pulse Oximetry 93 92 92 Oxygen Delivery Me thod Oxygen Flow Rate 08/26/25 04:45 08/26/25 04:49 08/26/25 05:00 Temperature Pulse Rate 97 95 Pulse Rate [Pulse Oximeter] Respiratory Rate Blood Pressure 138/72 Blood Pressure [Ri ght Upper Arm] Pulse Oximetry 93 90 Oxygen Delivery Me thod Oxygen Flow Rate 08/26/25 05:02 08/26/25 05:15 08/26/25 05:30 Temperature Pulse Rate 96 94 92 Pulse Rate [Pulse Oximeter] Respiratory Rate Blood Pressure 149/76 H Blood Pressure [Ri ght Upper Arm] Pulse Oximetry 82 L 92 93 Oxygen Delivery Me thod Oxygen Flow Rate 08/26/25 05:45 08/26/25 05:56 08/26/25 06:00 Temperature Pulse Rate 98 90 102 H Pulse Rate [Pulse Oximeter] Respiratory Rate Blood Pressure 128/78 Blood Pressure [Ri ght Upper Arm] Pulse Oximetry 96 84 L 94 Oxygen Delivery Me thod Oxygen Flow Rate 08/26/25 06:01 08/26/25 06:15 08/26/25 06:16 Temperature Pulse Rate 108 H 95 94 Pulse Rate [Pulse Oximeter] Respiratory Rate Blood Pressure 139/126 H 126/71 Blood Pressure [Ri ght Upper Arm] Pulse Oximetry 95 94 94 Oxygen Delivery Me thod Oxygen Flow Rate 08/26/25 06:30 08/26/25 06:31 08/26/25 06:51 Temperature Pulse Rate 100 104 H 90 Pulse Rate [Pulse Oximeter] Respiratory Rate Blood Pressure 134/76 Blood Pressure [Ri ght Upper Arm] Pulse Oximetry 95 96 94 Oxygen Delivery Me thod Oxygen Flow Rate 08/26/25 07:00 08/26/25 07:00 08/26/25 07:02 Temperature Pulse Rate 84 86 Pulse Rate [Pulse Oximeter] Respiratory Rate Blood Pressure 132/81 Blood Pressure [Ri ght Upper Arm] Pulse Oximetry 95 92 95 Oxygen Delivery Me thod Oxygen Flow Rate 08/26/25 07:15 08/26/25 07:16 08/26/25 07:30 Temperature Pulse Rate 87 87 85 Pulse Rate [Pulse Oximeter] Respiratory Rate Blood Pressure 142/74 H Blood Pressure [Ri ght Upper Arm] Pulse Oximetry 89 89 96 Oxygen Delivery Me thod Oxygen Flow Rate 08/26/25 07:31 08/26/25 07:45 08/26/25 07:45 Temperature Pulse Rate 88 88 89 Pulse Rate [Pulse Oximeter] Respiratory Rate 20 Blood Pressure 128/73 131/77 Blood Pressure [Ri ght Upper Arm] Pulse Oximetry 94 92 94 Oxygen Delivery Me thod Nasal Cannula Oxygen Flow Rate 1 08/26/25 07:47 08/26/25 07:48 08/26/25 08:00 Temperature Pulse Rate 85 86 88 Pulse Rate [Pulse Oximeter] Respiratory Rate Blood Pressure 131/77 Blood Pressure [Ri ght Upper Arm] Pulse Oximetry 93 94 93 Oxygen Delivery Me thod Oxygen Flow Rate 08/26/25 08:01 08/26/25 08:15 08/26/25 08:15 Temperature 98.9 F Pulse Rate 92 85 Pulse Rate [Pulse Oximeter] Respiratory Rate Blood Pressure 153/135 H Blood Pressure [Ri ght Upper Arm] Pulse Oximetry 91 90 Oxygen Delivery Me thod Oxygen Flow Rate 08/26/25 08:34 08/26/25 08:35 08/26/25 08:40 Temperature Pulse Rate 80 81 75 Pulse Rate [Pulse Oximeter] Respiratory Rate Blood Pressure 129/56 L Blood Pressure [Ri ght Upper Arm] Pulse Oximetry 89 90 90 Oxygen Delivery Me thod Oxygen Flow Rate 08/26/25 08:41 08/26/25 08:45 08/26/25 09:00 Temperature Pulse Rate 74 75 71 Pulse Rate [Pulse Oximeter] Respiratory Rate 12 20 Blood Pressure Blood Pressure [Ri ght Upper Arm] Pulse Oximetry 90 90 91 Oxygen Delivery Me thod Oxygen Flow Rate 08/26/25 09:01 08/26/25 09:15 08/26/25 09:30 Temperature Pulse Rate 71 69 71 Pulse Rate [Pulse Oximeter] Respiratory Rate 19 20 Blood Pressure 123/61 Blood Pressure [Ri ght Upper Arm] Pulse Oximetry 91 91 92 Oxygen Delivery Me thod Oxygen Flow Rate 08/26/25 09:31 08/26/25 09:45 08/26/25 09:58 Temperature 98.3 F Pulse Rate 70 72 Pulse Rate [Pulse Oximeter] Respiratory Rate 21 14 Blood Pressure 132/63 Blood Pressure [Ri ght Upper Arm] Pulse Oximetry 93 93 Oxygen Delivery Me thod Oxygen Flow Rate 08/26/25 10:00 08/26/25 10:02 08/26/25 10:15 Temperature Pulse Rate 69 73 83 Pulse Rate [Pulse Oximeter] Respiratory Rate 12 Blood Pressure 132/66 Blood Pressure [Ri ght Upper Arm] Pulse Oximetry 95 94 94 Oxygen Delivery Me thod Oxygen Flow Rate 08/26/25 10:30 08/26/25 10:32 08/26/25 10:45 Temperature Pulse Rate 74 76 72 Pulse Rate [Pulse Oximeter] Respiratory Rate Blood Pressure 123/61 Blood Pressure [Ri ght Upper Arm] Pulse Oximetry 94 94 92 Oxygen Delivery Me thod Oxygen Flow Rate 08/26/25 11:00 08/26/25 11:02 08/26/25 11:15 Temperature Pulse Rate 73 75 71 Pulse Rate [Pulse Oximeter] Respiratory Rate Blood Pressure 118/71 Blood Pressure [Ri ght Upper Arm] Pulse Oximetry 94 95 91 Oxygen Delivery Me thod Oxygen Flow Rate <Billy Lopez MD - Last Filed: 08/26/25 12:11> Course Course ED Course: Patient placed on a heart monitor and continuous pulse ox. Tylenol was ordered. Temp did come down to 98.8 after Tylenol. Chest x-ray did not show any acute infiltrates. VBG is unremarkable. Lactate is normal. CBC shows an elevated white cell count at 15.6, 81.5% neutrophils CRP elevated at 3.9 Normal troponin Normal BNP Negative triple swab Suspicion for pneumonia is high. Chest CT was ordered. Blood cultures ordered. Unasyn ordered. His CT of the chest did not show evidence of pneumonia. <Ernestina Cruz MD - Last Filed: 08/28/25 08:35> Reevaluation(s) Reevaluation #1: Patient signed out to Dr. Lopez at shift change-8:00 a.m. on 08/26 Patient has [age]-year-old male history of stroke and resulting aphasia from a facility today they noticed some difficulty breathing and brought him in. Workup for breathing so far is unrevealing. COVID/influenza/RSV negative. Chest CT negative for any focal infiltrates. While in the ER the patient did develop a low-grade fever. White count is 15. CRP mildly elevated at 3.9. Blood pressure and pulse are stable. Oxygen sat did dip into the high 80s on room air so he is now on 1 L nasal cannula. Workup for causes of fever was undertaken by Dr. Curz. Urinalysis is faintly abnormal with positive nitrite but 0-2 white cells, negative leukocyte esterase. Micro does show bacteria. Blood cultures pending. He has already been given IV Unasyn for what was initially thought to be a possible evolving aspiration pneumonia. Dr. Cruz ordered a CT of the patient's abdomen pelvis to look for intra-abdominal causes of fever. CT shows no definite cause but is limited by motion artifact. CT abdomen/pelvis with contrast IMPRESSION: 1. Motion degraded study severely limits assessment. Per technologist best possible images obtained. 2. Within exam limitations, no acute abdominopelvic abnormality. 3. Left lower lobe atelectasis of unclear etiology. No focal consolidation. 4. Appropriately positioned percutaneous gastrostomy tube within the stomach. Recheck-10:40 a.m.. Patient sitting up. He is alert but not able to speak due to his previous stroke. Has right-sided hemiparesis. Did have a coughing spell with some gurgling secretions in his upper airways epic. We were able to reposition him and the secretions out of his mouth. Overall respirations are unlabored. Oxygen low 90s on 1 L nasal cannula. At this point since the patient is requiring oxygen and is medically frail, we feel that hospitalization is warranted. Discussed with our hospitalist, Dr. Moon. She agrees to admit. She agrees with me broadening antibiotics with the addition of Rocephin and doxycycline for potential evolving pneumonia. She also requests that we contact the radiologist here in [facility], Dr. Aragon, and ask him if he will over read the chest CT that was done early this morning. I did contact Radiology discussed with the biomedical engineering technician and she will have the radiologist to the over read. Discussed with the patient and his family. Family confirms that he is DNR but that they would want a temporary trial of intubation if he needed it for hypoxic respiratory failure. At this point he is saturating well on 4 L nasal cannula. <Billy Lopez MD - Last Filed: 08/26/25 12:11> Vital Signs Vital signs: Initial Vital Signs Temperature 100.4 F H 08/26/25 04:02 Temperature Source Temporal Artery Scan 08/26/25 04:02 Pulse Rate 95 08/26/25 04:02 Pulse Rhythm Regular 08/26/25 04:02 Respiratory Rate 22 08/26/25 04:02 Blood Pressure 153/89 H 08/26/25 04:02 Blood Pressure Mean 110 H 08/26/25 04:02 Blood Pressure Position Supine 08/26/25 04:02 Pulse Oximetry 91 08/26/25 04:02 Oxygen Delivery Method Room Air 08/26/25 04:02 Vital Signs Temperature 100.4 F H 08/26/25 04:02 Pulse Rate 95 08/26/25 04:02 Respiratory Rate 22 08/26/25 04:02 Blood Pressure 153/89 H 08/26/25 04:02 Pulse Oximetry 91 08/26/25 04:02 Oxygen Delivery Method Room Air 08/26/25 04:02 Temperature 97.6 F 08/28/25 03:53 Pulse Rate 61 08/28/25 03:53 Respiratory Rate 20 08/28/25 03:53 Blood Pressure 123/68 08/28/25 03:53 Pulse Oximetry 96 08/28/25 03:53 Oxygen Delivery Method Room Air 08/28/25 03:53 Oxygen Flow Rate 1 08/26/25 07:45 <Ernestina Cruz MD - Last Filed: 08/28/25 08:35> Initial Vital Signs Temperature 100.4 F H 08/26/25 04:02 Temperature Source Temporal Artery Scan 08/26/25 04:02 Pulse Rate 95 08/26/25 04:02 Pulse Rhythm Regular 08/26/25 04:02 Respiratory Rate 22 08/26/25 04:02 Blood Pressure 153/89 H 08/26/25 04:02 Blood Pressure Mean 110 H 08/26/25 04:02 Blood Pressure Position Supine 08/26/25 04:02 Pulse Oximetry 91 08/26/25 04:02 Oxygen Delivery Method Room Air 08/26/25 04:02 Vital Signs Temperature 100.4 F H 08/26/25 04:02 Pulse Rate 95 08/26/25 04:02 Respiratory Rate 22 08/26/25 04:02 Blood Pressure 153/89 H 08/26/25 04:02 Pulse Oximetry 91 08/26/25 04:02 Oxygen Delivery Method Room Air 08/26/25 04:02 Temperature 97.6 F 08/28/25 03:53 Pulse Rate 61 08/28/25 03:53 Respiratory Rate 20 08/28/25 03:53 Blood Pressure 123/68 08/28/25 03:53 Pulse Oximetry 96 08/28/25 03:53 Oxygen Delivery Method Room Air 08/28/25 03:53 Oxygen Flow Rate 1 08/26/25 07:45 <Billy Lopez MD - Last Filed: 08/26/25 12:11> Medications Administered Medications: Generic Name Dose Route Start Last Admin Trade Name Freq PRN Reason Stop Dose Admin Acetaminophen 1,000 mg 08/26/25 21:00 08/27/25 22:35 Acetaminophen 500 Mg Tablet G-TUBE 1,000 mg QID LATOYA Administration Apixaban 2.5 mg 08/26/25 21:00 08/27/25 21:23 Apixaban 5 Mg Tablet G-TUBE 2.5 mg BID LATOYA Administration Aspirin 81 mg 08/27/25 09:00 08/27/25 09:23 Aspirin 81 Mg Tab.Chew G-TUBE 81 mg DAILY LATOYA Administration Atorvastatin Calcium 80 mg 08/26/25 21:00 08/27/25 21:22 Atorvastatin Calcium 40 Mg Tablet G-TUBE 80 mg HS LATOYA Administration Escitalopram Oxalate 10 mg 08/27/25 09:00 08/27/25 09:16 Escitalopram 10 Mg Tablet G-TUBE 10 mg DAILY LATOYA Administration Gabapentin 300 mg 08/26/25 21:00 08/27/25 21:22 Gabapentin 300 Mg Capsule G-TUBE 300 mg HS LATOYA Administration Ceftriaxone Sodium 1 gm/ 100 mls @ 200 mls/hr 08/27/25 11:00 08/27/25 12:30 Sodium Chloride IVPB Infused Q24H LATOYA Infusion Doxycycline Hyclate 100 mg/ 100 mls @ 100 mls/hr 08/27/25 00:01 08/28/25 00:19 Sodium Chloride IVPB 100 mls/hr Q12H LATOYA Administration Lisinopril 10 mg 08/27/25 09:00 08/27/25 09:18 Lisinopril 10 Mg Tablet G-TUBE 10 mg DAILY LATOYA Administration Loratadine 5 mg 08/27/25 09:00 08/27/25 09:16 Loratadine 10 Mg Tablet G-TUBE 5 mg DAILY LATOYA Administration Melatonin 6 mg 08/26/25 21:00 08/27/25 21:22 Melatonin 3 Mg Tablet G-TUBE 6 mg HS LATOYA Administration Metoclopramide HCl 10 mg 08/26/25 14:00 08/27/25 21:22 Metoclopramide 10 Mg Tablet G-TUBE 10 mg TID LATOYA Administration Omeprazole 20 mg 08/26/25 21:00 08/27/25 21:22 Omeprazole [address] G-TUBE 20 mg BID LATOYA Administration Sennosides 1 tab 08/26/25 21:00 08/27/25 21:22 Sennosides 1 Tab Tablet G-TUBE 1 tab BID LATOYA Administration Simethicone 80 mg 08/26/25 13:00 08/27/25 21:22 Simethicone 80 Mg Tab.Chew G-TUBE 80 mg QID LATOYA Administration Sodium Chloride 5 ml 08/26/25 21:00 08/27/25 21:27 Sodium Chloride 0.9 % (Flush) 10 Ml Syringe IVF 5 ml BID LATOYA Administration Discontinued Medications Generic Name Dose Route Start Last Admin Trade Name Freq PRN Reason Stop Dose Admin Acetaminophen 650 mg 08/26/25 04:22 08/26/25 07:50 Acetaminophen 325 Mg Tablet PO 08/26/25 04:23 650 mg ONCE ONE Administration Ampicillin Sodium/Sulbactam 100 mls @ 200 mls/hr 08/26/25 06:34 08/26/25 08:52 Sodium 3 gm/ Sodium Chloride IVPB 08/26/25 06:35 Infused ONCE ONE Infusion Ceftriaxone Sodium 1 gm/ 100 mls @ 200 mls/hr 08/26/25 10:52 08/26/25 12:27 Sodium Chloride IVPB 08/26/25 10:53 Infused ONCE ONE Infusion Doxycycline Hyclate 100 mg/ 100 mls @ 100 mls/hr 08/26/25 11:30 08/26/25 13:35 Sodium Chloride IVPB 08/26/25 12:29 Infused ONCE ONE Infusion Sodium Chloride 1,000 mls @ 1,000 mls/hr 08/26/25 11:00 08/26/25 14:44 0.9 % Sodium Chloride 1000 Ml IV 08/26/25 11:59 Infused .Q1H LATOYA Infusion Sodium Chloride 1,000 mls @ 1,000 mls/hr 08/26/25 11:00 08/26/25 13:37 0.9 % Sodium Chloride 1000 Ml IV 08/26/25 11:59 Not Given .Q1H LATOYA Sodium Chloride 1,000 mls @ 75 mls/hr 08/26/25 12:29 08/27/25 12:54 0.9 % Sodium Chloride 1000 Ml IV Infused .[id number] LATOYA Infusion Ceftriaxone Sodium 1 gm/ 100 mls @ 200 mls/hr 08/27/25 14:00 08/27/25 14:24 Sodium Chloride IVPB Not Given Q24H LATOYA Ketorolac Tromethamine 30 mg 08/26/25 18:00 08/27/25 12:56 Ketorolac 30 Mg/Ml Inj IVP Not Given Q6H LATOYA <Ernestina Cruz MD - Last Filed: 08/28/25 08:35> Generic Name Dose Route Start Last Admin Trade Name Freq PRN Reason Stop Dose Admin Acetaminophen 1,000 mg 08/26/25 21:00 08/27/25 22:35 Acetaminophen 500 Mg Tablet G-TUBE 1,000 mg QID LATOYA Administration Apixaban 2.5 mg 08/26/25 21:00 08/27/25 21:23 Apixaban 5 Mg Tablet G-TUBE 2.5 mg BID LATOYA Administration Aspirin 81 mg 08/27/25 09:00 08/27/25 09:23 Aspirin 81 Mg Tab.Chew G-TUBE 81 mg DAILY LATOYA Administration Atorvastatin Calcium 80 mg 08/26/25 21:00 08/27/25 21:22 Atorvastatin Calcium 40 Mg Tablet G-TUBE 80 mg HS LATOYA Administration Escitalopram Oxalate 10 mg 08/27/25 09:00 08/27/25 09:16 Escitalopram 10 Mg Tablet G-TUBE 10 mg DAILY LATOYA Administration Gabapentin 300 mg 08/26/25 21:00 08/27/25 21:22 Gabapentin 300 Mg Capsule G-TUBE 300 mg HS LATOYA Administration Ceftriaxone Sodium 1 gm/ 100 mls @ 200 mls/hr 08/27/25 11:00 08/27/25 12:30 Sodium Chloride IVPB Infused Q24H LATOYA Infusion Doxycycline Hyclate 100 mg/ 100 mls @ 100 mls/hr 08/27/25 00:01 08/28/25 00:19 Sodium Chloride IVPB 100 mls/hr Q12H LATOYA Administration Lisinopril 10 mg 08/27/25 09:00 08/27/25 09:18 Lisinopril 10 Mg Tablet G-TUBE 10 mg DAILY LATOYA Administration Loratadine 5 mg 08/27/25 09:00 08/27/25 09:16 Loratadine 10 Mg Tablet G-TUBE 5 mg DAILY LATOYA Administration Melatonin 6 mg 08/26/25 21:00 08/27/25 21:22 Melatonin 3 Mg Tablet G-TUBE 6 mg HS LATOYA Administration Metoclopramide HCl 10 mg 08/26/25 14:00 08/27/25 21:22 Metoclopramide 10 Mg Tablet G-TUBE 10 mg TID LATOYA Administration Omeprazole 20 mg 08/26/25 21:00 08/27/25 21:22 Omeprazole [address] G-TUBE 20 mg BID LATOYA Administration Sennosides 1 tab 08/26/25 21:00 08/27/25 21:22 Sennosides 1 Tab Tablet G-TUBE 1 tab BID LATOYA Administration Simethicone 80 mg 08/26/25 13:00 08/27/25 21:22 Simethicone 80 Mg Tab.Chew G-TUBE 80 mg QID LATOYA Administration Sodium Chloride 5 ml 08/26/25 21:00 08/27/25 21:27 Sodium Chloride 0.9 % (Flush) 10 Ml Syringe IVF 5 ml BID LATOYA Administration Discontinued Medications Generic Name Dose Route Start Last Admin Trade Name Freq PRN Reason Stop Dose Admin Acetaminophen 650 mg 08/26/25 04:22 08/26/25 07:50 Acetaminophen 325 Mg Tablet PO 08/26/25 04:23 650 mg ONCE ONE Administration Ampicillin Sodium/Sulbactam 100 mls @ 200 mls/hr 08/26/25 06:34 08/26/25 08:52 Sodium 3 gm/ Sodium Chloride IVPB 08/26/25 06:35 Infused ONCE ONE Infusion Ceftriaxone Sodium 1 gm/ 100 mls @ 200 mls/hr 08/26/25 10:52 08/26/25 12:27 Sodium Chloride IVPB 08/26/25 10:53 Infused ONCE ONE Infusion Doxycycline Hyclate 100 mg/ 100 mls @ 100 mls/hr 08/26/25 11:30 08/26/25 13:35 Sodium Chloride IVPB 08/26/25 12:29 Infused ONCE ONE Infusion Sodium Chloride 1,000 mls @ 1,000 mls/hr 08/26/25 11:00 08/26/25 14:44 0.9 % Sodium Chloride 1000 Ml IV 08/26/25 11:59 Infused .Q1H LATOYA Infusion Sodium Chloride 1,000 mls @ 1,000 mls/hr 08/26/25 11:00 08/26/25 13:37 0.9 % Sodium Chloride 1000 Ml IV 08/26/25 11:59 Not Given .Q1H LATOYA Sodium Chloride 1,000 mls @ 75 mls/hr 08/26/25 12:29 08/27/25 12:54 0.9 % Sodium Chloride 1000 Ml IV Infused .[id number] LATOYA Infusion Ceftriaxone Sodium 1 gm/ 100 mls @ 200 mls/hr 08/27/25 14:00 08/27/25 14:24 Sodium Chloride IVPB Not Given Q24H LATOYA Ketorolac Tromethamine 30 mg 08/26/25 18:00 08/27/25 12:56 Ketorolac 30 Mg/Ml Inj IVP Not Given Q6H LATOYA <Billy Lopez MD - Last Filed: 08/26/25 12:11> Medical Decision Making Lab Data Labs: Lab Results 08/26/25 08/26/25 Range/Units 05:00 07:22 WBC 15.64 H (4.50-11.00) K/uL RBC 4.59 (4.30-5.90) m/uL Hgb 14.5 (13.5-17.5) gm/dL Hct 42.2 (37.0-53.0) % MCV 92 (80-100) fL MCH 32 (26-34) pg MCHC 34 (32-36) gm/dL RDW Coeff of Namita 12.0 (11.5-15.5) % Plt Count 262 (140-440) K/uL Neut % (Auto) 81.5 H (42.0-72.0) % Lymph % (Auto) 9.6 L (20-44) % [place] % (Auto) 7.5 (0.0-11.0) % Eos % (Auto) 0.1 (0.0-7.0) % Baso % (Auto) 0.1 (0.0-3.0) % Neut # (Auto) 12.70 H (1.7-7.0) K/uL Lymph # (Auto) 1.50 (0.90-2.90) K/uL [place] # (Auto) 1.20 H (0.00-0.90) K/UL Eos # (Auto) 0.00 (0.00-0.50) K/uL Baso # (Auto) 0.00 (0.00-0.30) K/uL Abs Immat Gran (auto) 0.20 (0.00-0.30) K/uL Imm/Tot Granulo (auto) 1.2 % VBG pH 7.412 (7.32-7.43) VBG pCO2 42 (40-50) mmHG VBG pO2 50.0 H (25-47) mmHG VBG HCO3 27 (21-28) mmol/L Sodium 130 L (135-149) mmol/L Potassium 4.1 (3.6-5.1) mmol/L Chloride 100 (96-114) mmol/L Carbon Dioxide 26 (20-32) mmol/L Anion Gap 4 L (7-15) mEq/L BUN 17 (7-30) mg/dL Creatinine 0.6 (0.5-1.5) mg/dL Estimated GFR 106 ml/min Glucose 112 (60-115) mg/dL Lactate 1.4 (0.5-1.9) mmol/L Calcium 9.0 (8.4-10.6) mg/dL Total Bilirubin 1.0 (0.1-1.5) mg/dL Direct Bilirubin 0.2 (0.0-0.5) mg/dL AST 22 (12-35) U/L ALT 24 (4-50) U/L Alkaline Phosphatase 54 (40-150) U/L Troponin I < 0.01 (0.01-0.04) ng/mL C-Reactive Protein 3.9 H (0.5-1.0) mg/dL NT-Pro-B Natriuret Pep 270 (See Note) pg/mL Total Protein 7.1 (6.0-8.3) g/dL Albumin 4.3 (3.3-5.0) g/dL Procalcitonin 0.27 (<0.50) ng/mL Urine Color Yellow (Yellow) Urine Appearance Clear (Clear) Urine pH 8.5 (5.0-8.5) Ur Specific E[place]ice 1.015 (1.000-1.030) Urine Protein 1+ A (Negative) Urine Glucose (UA) Negative (Negative) Urine Ketones Negative (Negative) Urine Blood Negative (Negative) Urine Nitrite Positive A (Negative) Urine Bilirubin Negative (Negative) Urine Urobilinogen 0.2 (0.2-1.0) Ur Leukocyte Esterase Negative (Negative) Urine RBC 0-2 (0-2) Urine WBC 0-2 (0-5) Ur Squamous Epith Cells Few (None-Few) Urine Bacteria Many A (None) SARS-CoV-2 (PCR) Negative SARS-CoV-2 (Negative) Influenza Type A (PCR) Negative PCR FLU A (Negative) Influenza Type B (PCR) Negative PCR FLU B (Negative) RSV (PCR) Negative PCR RSV (Negative) <Ernestina Cruz MD - Last Filed: 08/28/25 08:35> Lab Results 08/26/25 08/26/25 Range/Units 05:00 07:22 WBC 15.64 H (4.50-11.00) K/uL RBC 4.59 (4.30-5.90) m/uL Hgb 14.5 (13.5-17.5) gm/dL Hct 42.2 (37.0-53.0) % MCV 92 (80-100) fL MCH 32 (26-34) pg MCHC 34 (32-36) gm/dL RDW Coeff of Namita 12.0 (11.5-15.5) % Plt Count 262 (140-440) K/uL Neut % (Auto) 81.5 H (42.0-72.0) % Lymph % (Auto) 9.6 L (20-44) % [place] % (Auto) 7.5 (0.0-11.0) % Eos % (Auto) 0.1 (0.0-7.0) % Baso % (Auto) 0.1 (0.0-3.0) % Neut # (Auto) 12.70 H (1.7-7.0) K/uL Lymph # (Auto) 1.50 (0.90-2.90) K/uL [place] # (Auto) 1.20 H (0.00-0.90) K/UL Eos # (Auto) 0.00 (0.00-0.50) K/uL Baso # (Auto) 0.00 (0.00-0.30) K/uL Abs Immat Gran (auto) 0.20 (0.00-0.30) K/uL Imm/Tot Granulo (auto) 1.2 % VBG pH 7.412 (7.32-7.43) VBG pCO2 42 (40-50) mmHG VBG pO2 50.0 H (25-47) mmHG VBG HCO3 27 (21-28) mmol/L Sodium 130 L (135-149) mmol/L Potassium 4.1 (3.6-5.1) mmol/L Chloride 100 (96-114) mmol/L Carbon Dioxide 26 (20-32) mmol/L Anion Gap 4 L (7-15) mEq/L BUN 17 (7-30) mg/dL Creatinine 0.6 (0.5-1.5) mg/dL Estimated GFR 106 ml/min Glucose 112 (60-115) mg/dL Lactate 1.4 (0.5-1.9) mmol/L Calcium 9.0 (8.4-10.6) mg/dL Total Bilirubin 1.0 (0.1-1.5) mg/dL Direct Bilirubin 0.2 (0.0-0.5) mg/dL AST 22 (12-35) U/L ALT 24 (4-50) U/L Alkaline Phosphatase 54 (40-150) U/L Troponin I < 0.01 (0.01-0.04) ng/mL C-Reactive Protein 3.9 H (0.5-1.0) mg/dL NT-Pro-B Natriuret Pep 270 (See Note) pg/mL Total Protein 7.1 (6.0-8.3) g/dL Albumin 4.3 (3.3-5.0) g/dL Procalcitonin 0.27 (<0.50) ng/mL Urine Color Yellow (Yellow) Urine Appearance Clear (Clear) Urine pH 8.5 (5.0-8.5) Ur Specific [place] 1.015 (1.000-1.030) Urine Protein 1+ A (Negative) Urine Glucose (UA) Negative (Negative) Urine Ketones Negative (Negative) Urine Blood Negative (Negative) Urine Nitrite Positive A (Negative) Urine Bilirubin Negative (Negative) Urine Urobilinogen 0.2 (0.2-1.0) Ur Leukocyte Esterase Negative (Negative) Urine RBC 0-2 (0-2) Urine WBC 0-2 (0-5) Ur Squamous Epith Cells Few (None-Few) Urine Bacteria Many A (None) SARS-CoV-2 (PCR) Negative SARS-CoV-2 (Negative) Influenza Type A (PCR) Negative PCR FLU A (Negative) Influenza Type B (PCR) Negative PCR FLU B (Negative) RSV (PCR) Negative PCR RSV (Negative) <Billy Lopez MD - Last Filed: 08/26/25 12:11> Imaging Data Chest x-ray: Attestation: I have reviewed the pertinent imaging results. <Ernestina Cruz MD - Last Filed: 08/28/25 08:35> Radiologist's impression: TECHNIQUE: Single AP view of the chest. FINDINGS: Slightly rotated leftward. Medical Devices: None. Lung Volumes: Shallow inspiration. No significant atelectasis. Lungs: Clear lungs. Pleura and Pleural spaces: No significant pleural effusion. No pneumothorax. Mediastinum: Normal cardiomediastinal silhouette. Bony Thorax and Soft Tissues: No significant incidental findings. IMPRESSION: No acute findings. <Ernestina Cruz MD - Last Filed: 08/28/25 08:35> CT scan - chest: Attestation: I have reviewed the pertinent imaging results. <Ernestina Cruz MD - Last Filed: 08/28/25 08:35> Radiologist's impression: COMPARISON: Chest radiographs dated 08/26/2025 and 11/08/2024. TECHNIQUE: CT of the chest without intravenous contrast. Please note that all CT scans at this facility use dose modulation, iterative reconstruction, and/or weight-based dosing when appropriate to reduce radiation dose to as low as reasonably achievable. FINDINGS: THORAX Visualized Lower Neck: No lower cervical adenopathy. Lungs: Motion artifact. Benign calcified granulomas are noted in the superior segment of the left lower lobe (3; 45) and right lower lobe (3; 51). Linear pleural-based opacities in the left lower lobe are consistent with nonspecific fibrosis. Pleura: No pleural effusion. No pneumothorax. Mediastinum: Thoracic aorta and pulmonary trunk are normal in caliber. Chronic severe multivessel diffuse atherosclerotic coronary artery calcifications. Trachea and esophagus are normal in appearance. No mediastinal lymphadenopathy. ABDOMEN Visualized Upper Abdomen: Percutaneous gastrostomy tube with the insufflated balloon present within the lumen of the lower gastric body. SKELETON AND BODY WALL No acute or significant incidental findings. IMPRESSION: 1. No acute cardiopulmonary findings. 2. Chronic severe multivessel diffuse atherosclerotic coronary artery calcifications. 3. Benign calcified pulmonary granulomas and additional incidental findings as above. <Ernestina Cruz MD - Last Filed: 08/28/25 08:35> Procedures ABG Interpretation ABG Results: 08/26/25 05:00 VBG pH 7.412 VBG pCO2 42 VBG pO2 50.0 H VBG HCO3 27 <Ernestina Cruz MD - Last Filed: 08/28/25 08:35> 08/26/25 05:00 VBG pH 7.412 VBG pCO2 42 VBG pO2 50.0 H VBG HCO3 27 <Billy Lopez MD - Last Filed: 08/26/25 12:11>
[2025-08-26 05:26] LABS: HCO3 VBG 27 mmol/L (21-28); Lactate* 1.4 mmol/L (0.5-1.9); PCO2 VBG 42 mmHG (40-50); PO2 VBG 50.0 mmHG (25-47); pH VBG 7.412 (7.32-7.43)
[2025-08-26 05:49] LABS: Albumin* 4.3 g/dL (3.3-5.0); Chloride* 100 mmol/L (96-114); Sodium* 130 mmol/L (135-149)
[2025-08-26 05:50] LABS: Potassium* 4.1 mmol/L (3.6-5.1)
[2025-08-26 05:52] LABS: Alanine Aminotransferase* 24 U/L (4-50); Alkaline Phosphatase* 54 U/L (40-150); Anion Gap 4 mEq/L (7-15); Aspartate Amino Transferase* 22 U/L (12-35); Bilirubin Direct* 0.2 mg/dL (0.0-0.5); Bilirubin Total* 1.0 mg/dL (0.1-1.5); Blood Urea Nitrogen* 17 mg/dL (7-30); Carbon Dioxide* 26 mmol/L (20-32); Creatinine* 0.6 mg/dL (0.5-1.5); Estimated Glomerular Filt Rate 106 ml/min; Total Protein* 7.1 g/dL (6.0-8.3)
[2025-08-26 05:53] LABS: Calcium* 9.0 mg/dL (8.4-10.6); Glucose* 112 mg/dL (60-115)
[2025-08-26 06:04] LABS: PCR FLU A Negative PCR FLU A (Negative); PCR FLU B Negative PCR FLU B (Negative); PCR RSV Negative PCR RSV (Negative); SARS PCR* Negative SARS-CoV-2 (Negative)
[2025-08-26 06:05] LABS: NT Pro B Type NatriureticPept* 270 pg/mL (See Note)
[2025-08-26 06:09] LABS: Procalcitonin* 0.27 ng/mL (<0.50)
--- NOTE | 2025-08-26 06:12 | CRLHL7_ITS ---
For Patients: As a result of the Century Cures Act, medical imaging exams and procedure reports are released immediately into your electronic medical record. You may view this report before your referring provider. If you have questions, please contact your health care provider. INDICATION: SOB, FEVER. (Sic) COMPARISON: Chest radiographs dated 08/26/2025 and 11/08/2024. TECHNIQUE: CT of the chest without intravenous contrast. Please note that all CT scans at this facility use dose modulation, iterative reconstruction, and/or weight-based dosing when appropriate to reduce radiation dose to as low as reasonably achievable. FINDINGS: THORAX Visualized Lower Neck: No lower cervical adenopathy. Lungs: Motion artifact. Benign calcified granulomas are noted in the superior segment of the left lower lobe (3; 45) and right lower lobe (3; 51). Linear pleural-based opacities in the left lower lobe are consistent with nonspecific fibrosis. Pleura: No pleural effusion. No pneumothorax. Mediastinum: Thoracic aorta and pulmonary trunk are normal in caliber. Chronic severe multivessel diffuse atherosclerotic coronary artery calcifications. Trachea and esophagus are normal in appearance. No mediastinal lymphadenopathy. ABDOMEN Visualized Upper Abdomen: Percutaneous gastrostomy tube with the insufflated balloon present within the lumen of the lower gastric body. SKELETON AND BODY WALL No acute or significant incidental findings. IMPRESSION: 1. No acute cardiopulmonary findings. 2. Chronic severe multivessel diffuse atherosclerotic coronary artery calcifications. 3. Benign calcified pulmonary granulomas and additional incidental findings as above. Please note that all CT scans at this facility use dose modulation, iterative reconstruction, and/or weight-based dosing when appropriate to reduce radiation dose to as low as reasonably achievable. Dictated by Haris Roth MD @ 08/26/2025 7:12:39 AM (Electronically Signed)
[2025-08-26 06:17] LABS: Hematocrit* 42.2 % (37.0-53.0); Hemoglobin* 14.5 gm/dL (13.5-17.5); Immature Granulocytes Pct Auto 1.2 %; Lymphocytes Absolute Auto 1.50 K/uL (0.90-2.90); Mean Corpuscular HGB Conc 34 gm/dL (32-36); Mean Corpuscular Hemoglobin 32 pg (26-34); Mean Corpuscular Volume 92 fL (80-100); RDW Coefficient of Variation % 12.0 % (11.5-15.5); Red Blood Count* 4.59 m/uL (4.30-5.90); White Blood Count* 15.64 K/uL (4.50-11.00)
[2025-08-26 06:19] LABS: Immature Granulocytes Abs Auto 0.20 K/uL (0.00-0.30); Slide Review Reflex No
[2025-08-26 07:39] LABS: Appearance Urine Clear (Clear)
[2025-08-26] MEDS: AMPICILLIN/SULBACTAM 3 GM in 0.9 % SODIUM CHLORIDE Mini-bag 100 ML IVPB (07:49)
[2025-08-26] MEDS: ACETAMINOPHEN 325 MG TABLET 650 MG PO (07:50)
--- NOTE | 2025-08-26 08:00 | CRLHL7_ITS ---
For Patients: As a result of the Century Cures Act, medical imaging exams and procedure reports are released immediately into your electronic medical record. You may view this report before your referring provider. If you have questions, please contact your health care provider. INDICATION: Fever. TECHNIQUE: CT abdomen and pelvis following administration of IV contrast. COMPARISON: None. FINDINGS: Significant motion artifact limits assessment. Per technologist best possible obtained. Lower chest: Left lower lobe atelectasis. 0.3 cm right lower lobe nodule (series 3, image 2). No focal consolidation. No pleural effusion or pneumothorax. Base of the heart, incompletely imaged distal thoracic esophagus, and incompletely imaged descending thoracic aorta are normal. Liver: No worrisome hepatic lesion. . Non-cirrhotic morphology. Gallbladder and bile ducts: No intrahepatic or extrahepatic biliary duct dilatation. Gallbladder is within normal limits. No visible gallstones. Pancreas: No focal masses. No pancreatic duct dilatation. No peripancreatic inflammation. Spleen: Normal in size. No masses. Adrenal glands: Within normal limits. Kidneys: Kidneys enhance symmetrically. No hydronephrosis or hydroureter. No renal calculi. No worrisome renal lesions. GI tract: Percutaneous gastrostomy tube appears properly positioned. No abnormal wall thickening or visualized mass. No finding to suggest small or large bowel obstruction. Appendix not visualized but within exam limitations, no inflammation in the right lower quadrant to suggest acute appendicitis. Vasculature: Moderate aortoiliac atherosclerosis. No abdominal aortic aneurysm. Patent portal venous system. Lymph nodes: No lymphadenopathy. Peritoneum/Retroperitoneum: No free air or significant free fluid. Pelvic organs/Bladder: Normal urinary bladder. Prostatomegaly. Bones: No acute fractures. No worrisome osseous lesions. Moderate degenerative changes of the spine. Soft tissues: No abdominal wall defect or hernia. No subcutaneous or intramuscular collection or mass.. IMPRESSION: 1. Motion degraded study severely limits assessment. Per technologist best possible images obtained. 2. Within exam limitations, no acute abdominopelvic abnormality. 3. Left lower lobe atelectasis of unclear etiology. No focal consolidation. 4. Appropriately positioned percutaneous gastrostomy tube within the stomach. Please note that all CT scans at this facility use dose modulation, iterative reconstruction, and/or weight-based dosing when appropriate to reduce radiation dose to as low as reasonably achievable. Dictated by Billy Gold MD @ 08/26/2025 8:55:38 AM (Electronically Signed)
[2025-08-26] MEDS: cefTRIAXone 1 GM in 0.9 % SODIUM CHLORIDE Mini-bag 100 ML IVPB (11:10)
[2025-08-26] MEDS: DOXYCYCLINE HYCLATE 100 MG in 0.9 % SODIUM CHLORIDE Mini-bag 100 ML IVPB (12:27)
[2025-08-26] MEDS: METOCLOPRAMIDE 10 MG TABLET G-TUBE ×2 (14:13→21:58)
[2025-08-26] MEDS: SIMETHICONE 80 MG TAB.CHEW G-TUBE ×3 (14:13→21:58)
--- NOTE | 2025-08-26 15:07 | PC.SOCIAL ---
Discharge planning: [employer] factory worker spoke to pt's , Anali, over the phone this afternoon and she said that they do have the pt on a bed hold at [facility]. Social work to follow-up as needed.
--- NOTE | 2025-08-26 17:47 | PM.IMHP1 ---
Assessment and Plan Assessment and plan (1) Febrile illness: Problem comment: -fever to 101 recorded at care facility, so far 99 here on the floor. Suspicious UA, coughing history of aspiration with negative chest imaging. Elevated white blood cell count and CRP. -received 1 dose of IV Unasyn -is now receiving IV Rocephin and doxycycline -awaiting cultures and clinical evolve minute to help narrow down the source of his acute change Status: Acute (2) History of CVA (cerebrovascular accident): Problem comment: 01/2020 - residual effects on the left side, but discharged home; continued to work and drive 02/2023 - devastating right carotid artery stroke, left side hemiparesis, aphasia, no longer swallows - admitted to LT in April 2023 with gastrostomy tube, 29/05 care. Status: Acute (3) Hemiplegia affecting left nondominant side: Status: Chronic (4) History of gastrostomy tube placement: Status: Acute (5) Feeding by G-tube: Status: Acute (6) Anticoagulant long-term use: Status: Acute Hospitalist- H&P: HPI History of Present Illness Date Seen: 08/26/25 Chief complaint: respiratory distress Narrative: ADMISSION HISTORY AND PHYSICAL - HOSPITALIST Chief Complaint: Agitation, tachypnea, cough, fever HPI: 65-year-old white male with a history of life altering CVA presents from his care center secondary to concerns regarding agitation, tachypnea, productive cough with a fever of 101? F.. When his O2 saturations were checked he was in the 80s. He is typically not on oxygen. EMS brought him over from [facility] to our emergency room. His workup in the emergency room did not reveal an aspiration pneumonia nor acute chest abnormality. His CT scan of his chest, abdomen and pelvis are reviewed. There are no acute findings. His labs show moderate leukocytosis with 82% neutrophils. His hemoglobin and platelet count are unremarkable. His blood gas was unremarkable. Moderately hyponatremic, normal renal function. Glucose was normal. His lactate was normal. His LFTs were normal. His troponin was undetectable. He had a mild bump in his CRP to 3.9. His procalcitonin is unremarkable as was his albumin and BN P. His urine showed positive nitrite with 1+ protein and many bacteria. Cultures are pending. He is COVID, RSV and influenza negative. He initially needed supplemental oxygen to keep his sats greater than 90%. Upon arrival to the floor he has continued to be on room air without respiratory distress. ER COURSE: CT scans, labs, cultures, 1 dose of IV Unasyn. CODE STATUS: Modified: No chest compressions, if an acute respiratory issue were to arise he would want to be on a short-term ventilator. Long-term respiratory support. PCP: Dr. Burris at [facility] EMERGENCY CONTACT PLAN: , son are bedside I've updated the PFSH, medications and allergies in the [facility] tabs. INVESTIGATIONS: LABS/MICRO/ECG/IMAGING As above REVIEW OF SYSTEMS: 12-point ROS completed with patient and negative unless otherwise stated in HPI or below. PHYSICAL EXAM: CONSTITUTIONAL: Chronically-ill gentleman. Right-sided hemiparesis is obvious. He does make eye contact. I can get him to smile. He is nonverbal. GENERAL: Well nourished. No respiratory distress. VITAL SIGNS: see record. HEENT: Sclerae are anicteric. No petechiae. CARDIAC: rhythm is regular. There is no S3 or rub. No harsh murmurs. Extremities show trace edema with symmetrical pulses. ABDOMEN: Soft. No reaction to deep palpation. NEURO: Abnormal neurologic exam, however this is his baseline. SKIN: Full skin exam completed. No rashes, petechiae, concerning changes PSYCHIATRIC: Euthymic. ADMIT TO MEDSURG: FLOOR CARE DVT: Continue home Eliquis GI: Continue G-tube PPI Time spent: Today I spent 75 minutes seeing the patient, discussing the patient with ER staff, reviewing [facility] and [facility] notes/diagnostics, discussing the care plan with our care time that includes social work, PT/OT, pharmacy, RT, chcf and documenting my impressions and plan in the medical record. MEDICAL NECESSITY FOR HOSPITALIZATION Anticipated midnights in the hospital: 2+ Admitting diagnosis: Fever, agitation with hypoxic respiratory failure no specific cause yet Risk of morbidity and mortality: high Acuity is characterized as high and reflected in: Compromise neurologic state, no p.o. intake, high risk for aspiration, unclear source of infection This patient will require hospital services as outlined in the assessment and plan in order to stabilize and be safely discharged to a lower level of care. Because of the risk and acuity as described above, this patient cannot be managed at a lower level of care. LENGTH OF STAY: 2 IP ? Anticipated LOS>2 midnights due to acuity of clinical presentation requiring inpatient level of care Medical Decision Making Medical Decision Making Has patient completed a Health Care Directive: Yes [facility] Medical History (Updated 08/26/25 @ 18:08 by Laney Moon MD) History of CVA (cerebrovascular accident) ?Z86.73 - Personal history of transient ischemic attack (TIA), and cerebral infarction without residual deficits (ICD-10) POLST (Physician Orders for Life-Sustaining Treatment) ?Z78.9 - Other specified health status (ICD-10) Chronic ischemic left MCA stroke ?I69.30 - Unspecified sequelae of cerebral infarction (ICD-10) History of gastrostomy tube placement Tobacco use ?Z72.0 - Tobacco use (ICD-10) Hypertension ?I10 - Essential (primary) hypertension (ICD-10) Hyperlipidemia ?E78.5 - Hyperlipidemia, unspecified (ICD-10) Hemiplegia affecting left nondominant side ?G81.94 - Hemiplegia, unspecified affecting left nondominant side (ICD-10) Feeding by G-tube ?Z93.1 - Gastrostomy status (ICD-10) Pulmonary embolism ?I26.99 - Other pulmonary embolism without acute cor pulmonale (ICD-10) Diabetes mellitus ?E11.9 - Type 2 diabetes mellitus without complications (ICD-10) Cataract ?H26.9 - Unspecified cataract (ICD-10) History of right MCA stroke ?Z86.73 - Personal history of transient ischemic attack (TIA), and cerebral infarction without residual deficits (ICD-10) Surgical History H/O vitrectomy ?Z98.890 - Other specified postprocedural states (ICD-10) H/O cataract extraction ?Z98.49 - Cataract extraction status, unspecified eye (ICD-10) Social History What is your current living situation?: I presently have a place to live Problems where you live: no known problems In the past 12 months, utilities in danger of being shut off: no In past 12 months, lack of transportation kept you from medical appts, meetings, work, or getting things needed for daily living: no In the past 12 mos, have been you worried that your food would run out before you had money to buy more?: never true In the past 12 mos, the food you bought just didn't last and you didn't have money to buy more?: never true Highest level of school completed/degree received: high school graduate Smoking Status: Former smoker Do you use any of these nicotine containing products: None How often do you have a drink containing alcohol: never AUDIT-C Alcohol total score: 0 Non-prescribed substance use: denies use Caffeine: No How often does anyone, including family, friends and others, physically hurt you: never How often does anyone, including family, friends and others, insult or talk down to you: never How often does anyone, including family, friends and others, threaten you with harm: never How often does anyone, including family, friends and others, scream or curse at you: never service: No Meds Home Medications and Allergies Home Medications ?Medication ?Instructions ?Recorded ?Confirmed ?Type acetaminophen 500 mg tablet 1,000 mg feeding tube BID 11/08/24 08/26/25 History apixaban 2.5 mg tablet 2.5 mg feeding tube BID 11/08/24 08/26/25 History aspirin 81 mg chewable tablet 1 tab feeding tube DAILY 11/08/24 08/26/25 History atorvastatin 80 mg tablet 80 mg feeding tube HS 11/08/24 08/26/25 History carbamide peroxide 6.5 % ear drops 3 drp otic (ear) .TU@08/26/25 08/26/25 History (Debrox) escitalopram oxalate 10 mg tablet 10 mg feeding tube DAILY 08/26/25 08/26/25 History gabapentin 300 mg capsule 300 mg feeding tube HS 08/26/25 08/26/25 History lansoprazole 30 mg oral 30 mg PO BID 08/26/25 08/26/25 History suspension,delayed release lisinopril 10 mg tablet 10 mg feeding tube DAILY 08/26/25 08/26/25 History loratadine 5 mg/5 mL oral solution 10 mg feeding tube DAILY 08/26/25 08/26/25 History melatonin 3 mg tablet 6 mg feeding tube HS 08/26/25 08/26/25 History metoclopramide HCl 10 mg tablet 10 mg feeding tube TID 08/26/25 08/26/25 History sennosides 8.6 mg tablet (Natural 17.2 mg feeding tube BID 08/26/25 08/26/25 History Senna Laxative) simethicone 80 mg chewable tablet 80 mg feeding tube QID 08/26/25 08/26/25 History (Gas Relief 80 (simethicone)) Allergies Allergy/AdvReac Type Severity Reaction Status Date / Time No Known Drug Allergies Allergy Verified 11/08/24 11:10 Exam Const: Vital Signs, click to edit/add: Vital Signs - 24 hr 08/26/25 04:02 08/26/25 04:10 08/26/25 04:15 Temperature 100.4 F H Pulse Rate 104 H 92 Pulse Rate [Pulse Oximeter] 95 Respiratory Rate 22 Blood Pressure Blood Pressure [Ri ght Radial Artery] Blood Pressure [Ri ght Upper Arm] 153/89 H Pulse Oximetry 91 92 93 Oxygen Delivery Me thod Room Air Oxygen Flow Rate 08/26/25 04:18 08/26/25 04:30 08/26/25 04:34 Temperature Pulse Rate 93 94 101 H Pulse Rate [Pulse Oximeter] Respiratory Rate Blood Pressure Blood Pressure [Ri ght Radial Artery] Blood Pressure [Ri ght Upper Arm] Pulse Oximetry 93 92 92 Oxygen Delivery Me thod Oxygen Flow Rate 08/26/25 04:45 08/26/25 04:49 08/26/25 05:00 Temperature Pulse Rate 97 95 Pulse Rate [Pulse Oximeter] Respiratory Rate Blood Pressure 138/72 Blood Pressure [Ri ght Radial Artery] Blood Pressure [Ri ght Upper Arm] Pulse Oximetry 93 90 Oxygen Delivery Me thod Oxygen Flow Rate 08/26/25 05:02 08/26/25 05:15 08/26/25 05:30 Temperature Pulse Rate 96 94 92 Pulse Rate [Pulse Oximeter] Respiratory Rate Blood Pressure 149/76 H Blood Pressure [Ri ght Radial Artery] Blood Pressure [Ri ght Upper Arm] Pulse Oximetry 82 L 92 93 Oxygen Delivery Me thod Oxygen Flow Rate 08/26/25 05:45 08/26/25 05:56 08/26/25 06:00 Temperature Pulse Rate 98 90 102 H Pulse Rate [Pulse Oximeter] Respiratory Rate Blood Pressure 128/78 Blood Pressure [Ri ght Radial Artery] Blood Pressure [Ri ght Upper Arm] Pulse Oximetry 96 84 L 94 Oxygen Delivery Me thod Oxygen Flow Rate 08/26/25 06:01 08/26/25 06:15 08/26/25 06:16 Temperature Pulse Rate 108 H 95 94 Pulse Rate [Pulse Oximeter] Respiratory Rate Blood Pressure 139/126 H 126/71 Blood Pressure [Ri ght Radial Artery] Blood Pressure [Ri ght Upper Arm] Pulse Oximetry 95 94 94 Oxygen Delivery Me thod Oxygen Flow Rate 08/26/25 06:30 08/26/25 06:31 08/26/25 06:51 Temperature Pulse Rate 100 104 H 90 Pulse Rate [Pulse Oximeter] Respiratory Rate Blood Pressure 134/76 Blood Pressure [Ri ght Radial Artery] Blood Pressure [Ri ght Upper Arm] Pulse Oximetry 95 96 94 Oxygen Delivery Me thod Oxygen Flow Rate 08/26/25 07:00 08/26/25 07:00 08/26/25 07:02 Temperature Pulse Rate 84 86 Pulse Rate [Pulse Oximeter] Respiratory Rate Blood Pressure 132/81 Blood Pressure [Ri ght Radial Artery] Blood Pressure [Ri ght Upper Arm] Pulse Oximetry 95 92 95 Oxygen Delivery Me thod Oxygen Flow Rate 08/26/25 07:15 08/26/25 07:16 08/26/25 07:30 Temperature Pulse Rate 87 87 85 Pulse Rate [Pulse Oximeter] Respiratory Rate Blood Pressure 142/74 H Blood Pressure [Ri ght Radial Artery] Blood Pressure [Ri ght Upper Arm] Pulse Oximetry 89 89 96 Oxygen Delivery Me thod Oxygen Flow Rate 08/26/25 07:31 08/26/25 07:45 08/26/25 07:45 Temperature Pulse Rate 88 88 89 Pulse Rate [Pulse Oximeter] Respiratory Rate 20 Blood Pressure 128/73 131/77 Blood Pressure [Ri ght Radial Artery] Blood Pressure [Ri ght Upper Arm] Pulse Oximetry 94 92 94 Oxygen Delivery Me thod Nasal Cannula Oxygen Flow Rate 1 08/26/25 07:47 08/26/25 07:48 08/26/25 08:00 Temperature Pulse Rate 85 86 88 Pulse Rate [Pulse Oximeter] Respiratory Rate Blood Pressure 131/77 Blood Pressure [Ri ght Radial Artery] Blood Pressure [Ri ght Upper Arm] Pulse Oximetry 93 94 93 Oxygen Delivery Me thod Oxygen Flow Rate 08/26/25 08:01 08/26/25 08:15 08/26/25 08:15 Temperature 98.9 F Pulse Rate 92 85 Pulse Rate [Pulse Oximeter] Respiratory Rate Blood Pressure 153/135 H Blood Pressure [Ri ght Radial Artery] Blood Pressure [Ri ght Upper Arm] Pulse Oximetry 91 90 Oxygen Delivery Me thod Oxygen Flow Rate 08/26/25 08:34 08/26/25 08:35 08/26/25 08:40 Temperature Pulse Rate 80 81 75 Pulse Rate [Pulse Oximeter] Respiratory Rate Blood Pressure 129/56 L Blood Pressure [Ri ght Radial Artery] Blood Pressure [Ri ght Upper Arm] Pulse Oximetry 89 90 90 Oxygen Delivery Me thod Oxygen Flow Rate 08/26/25 08:41 08/26/25 08:45 08/26/25 09:00 Temperature Pulse Rate 74 75 71 Pulse Rate [Pulse Oximeter] Respiratory Rate 12 20 Blood Pressure Blood Pressure [Ri ght Radial Artery] Blood Pressure [Ri ght Upper Arm] Pulse Oximetry 90 90 91 Oxygen Delivery Me thod Oxygen Flow Rate 08/26/25 09:01 08/26/25 09:15 08/26/25 09:30 Temperature Pulse Rate 71 69 71 Pulse Rate [Pulse Oximeter] Respiratory Rate 19 20 Blood Pressure 123/61 Blood Pressure [Ri ght Radial Artery] Blood Pressure [Ri ght Upper Arm] Pulse Oximetry 91 91 92 Oxygen Delivery Me thod Oxygen Flow Rate 08/26/25 09:31 08/26/25 09:45 08/26/25 09:58 Temperature 98.3 F Pulse Rate 70 72 Pulse Rate [Pulse Oximeter] Respiratory Rate 21 14 Blood Pressure 132/63 Blood Pressure [Ri ght Radial Artery] Blood Pressure [Ri ght Upper Arm] Pulse Oximetry 93 93 Oxygen Delivery Me thod Oxygen Flow Rate 08/26/25 10:00 08/26/25 10:02 08/26/25 10:15 Temperature Pulse Rate 69 73 83 Pulse Rate [Pulse Oximeter] Respiratory Rate 12 Blood Pressure 132/66 Blood Pressure [Ri ght Radial Artery] Blood Pressure [Ri ght Upper Arm] Pulse Oximetry 95 94 94 Oxygen Delivery Me thod Oxygen Flow Rate 08/26/25 10:30 08/26/25 10:32 08/26/25 10:45 Temperature Pulse Rate 74 76 72 Pulse Rate [Pulse Oximeter] Respiratory Rate Blood Pressure 123/61 Blood Pressure [Ri ght Radial Artery] Blood Pressure [Ri ght Upper Arm] Pulse Oximetry 94 94 92 Oxygen Delivery Me thod Oxygen Flow Rate 08/26/25 11:00 08/26/25 11:02 08/26/25 11:15 Temperature Pulse Rate 73 75 71 Pulse Rate [Pulse Oximeter] Respiratory Rate Blood Pressure 118/71 Blood Pressure [Ri ght Radial Artery] Blood Pressure [Ri ght Upper Arm] Pulse Oximetry 94 95 91 Oxygen Delivery Me thod Oxygen Flow Rate 08/26/25 11:48 08/26/25 11:48 08/26/25 12:29 Temperature 97.9 F Pulse Rate Pulse Rate [Pulse Oximeter] Respiratory Rate 18 18 Blood Pressure Blood Pressure [Ri ght Radial Artery] 126/71 Blood Pressure [Ri ght Upper Arm] Pulse Oximetry 92 92 92 Oxygen Delivery Me thod Room Air Room Air Oxygen Flow Rate 08/26/25 12:29 08/26/25 12:29 08/26/25 15:00 Temperature 98.1 F Pulse Rate 81 Pulse Rate [Pulse Oximeter] Respiratory Rate 18 Blood Pressure Blood Pressure [Ri ght Radial Artery] 95/61 Blood Pressure [Ri ght Upper Arm] Pulse Oximetry 92 96 Oxygen Delivery Me thod Room Air Room Air Oxygen Flow Rate 08/26/25 16:54 Temperature 99.9 F H Pulse Rate Pulse Rate [Pulse Oximeter] Respiratory Rate Blood Pressure Blood Pressure [Ri ght Radial Artery] 132/57 L Blood Pressure [Ri ght Upper Arm] Pulse Oximetry Oxygen Delivery Me thod Oxygen Flow Rate Hospitalist - H&P: Result Labs Labs: Short CBC 08/26/25 Range/Units 05:00 WBC 15.64 H (4.50-11.00) K/uL Hgb 14.5 (13.5-17.5) gm/dL Hct 42.2 (37.0-53.0) % Plt Count 262 (140-440) K/uL BMP 08/26/25 05:00 Sodium 130 L Potassium 4.1 Chloride 100 Carbon Dioxide 26 BUN 17 Creatinine 0.6 Glucose 112 Calcium 9.0 Cardiac Enzymes 08/26/25 Range/Units 05:00 Troponin I < 0.01 (0.01-0.04) ng/mL Liver Function 08/26/25 Range/Units 05:00 Total Bilirubin 1.0 (0.1-1.5) mg/dL Direct Bilirubin 0.2 (0.0-0.5) mg/dL AST 22 (12-35) U/L ALT 24 (4-50) U/L Alkaline Phosphatase 54 (40-150) U/L Albumin 4.3 (3.3-5.0) g/dL Urine 08/26/25 Range/Units 07:22 Urine Color Yellow (Yellow) Urine Appearance Clear (Clear) Urine pH 8.5 (5.0-8.5) Ur Specific Leonard 1.015 (1.000-1.030) Urine Protein 1+ A (Negative) Urine Glucose (UA) Negative (Negative)
[2025-08-26] MEDS: ACETAMINOPHEN 500 MG TABLET 1000 MG G-TUBE ×2 (18:14→21:57)
--- NOTE | 2025-08-26 18:51 | PC.NURSE ---
Pt admitted from the ED, pt is nonverbal but can grunt and point with his right hand. Pt assist of 2 with gait belt. External cath in place for bladder. Bedside commode for bowel. pt q2hr repos, impulsive with transfers. Pt given prn pain medication for restlessness, low grade fever and grimacing. Pt is up in bed and calm at this time, feeding tube running as prescribed. Family at bedside.
[2025-08-26] MEDS: SENNOSIDES 1 TAB TABLET G-TUBE (21:56)
[2025-08-26] MEDS: GABAPENTIN 300 MG CAPSULE G-TUBE (21:56)
[2025-08-26] MEDS: MELATONIN 3 MG TABLET 6 MG G-TUBE (21:57)
[2025-08-26] MEDS: ATORVASTATIN CALCIUM 40 MG TABLET 80 MG G-TUBE (21:57)
[2025-08-26] MEDS: OMEPRAZOLE 20 MG CAPSULE DR G-TUBE (21:58)
[2025-08-26] MEDS: APIXABAN 5 MG TABLET 2.5 MG G-TUBE (21:58)
[2025-08-27] VITALS (8 sets, daily range): BP systolic 113–136; BP diastolic 53–63; PULSE 55–69; RESP 18–19; TEMP 35.7–36.7; O2SAT 94–98; BMI 25.8
[2025-08-27] MEDS: DOXYCYCLINE HYCLATE 100 MG in 0.9 % SODIUM CHLORIDE Mini-bag 100 ML IVPB ×2 (01:01→12:49)
[2025-08-27 06:25] LABS: HCO3 VBG 27 mmol/L (21-28); PCO2 VBG 48 mmHG (40-50); PO2 VBG 35.1 mmHG (25-47); pH VBG 7.366 (7.32-7.43)
[2025-08-27 06:31] LABS: Hematocrit* 35.2 % (37.0-53.0); Hemoglobin* 11.8 gm/dL (13.5-17.5); Immature Granulocytes Abs Auto 0.01 K/uL (0.00-0.30); Immature Granulocytes Pct Auto 0.1 %; Mean Corpuscular HGB Conc 34 gm/dL (32-36); Mean Corpuscular Hemoglobin 32 pg (26-34); Mean Corpuscular Volume 94 fL (80-100); RDW Coefficient of Variation % 12.1 % (11.5-15.5); Red Blood Count* 3.73 m/uL (4.30-5.90); White Blood Count* 7.85 K/uL (4.50-11.00)
[2025-08-27 06:34] LABS: Lymphocytes Absolute Auto 1.50 K/uL (0.90-2.90); Slide Review Reflex No
[2025-08-27 06:48] LABS: Chloride* 105 mmol/L (96-114); Sodium* 138 mmol/L (135-149)
[2025-08-27 06:49] LABS: Potassium* 4.2 mmol/L (3.6-5.1)
[2025-08-27 06:51] LABS: Blood Urea Nitrogen* 22 mg/dL (7-30); Creatinine* 0.6 mg/dL (0.5-1.5); Est. Creatinine Clearance* 77.39; Estimated Glomerular Filt Rate 106 ml/min
[2025-08-27 06:52] LABS: Calcium* 8.3 mg/dL (8.4-10.6); Carbon Dioxide* 27 mmol/L (20-32); Glucose* 131 mg/dL (60-115)
[2025-08-27 06:57] LABS: Anion Gap 6 mEq/L (7-15)
[2025-08-27 07:05] LABS: Procalcitonin* 0.28 ng/mL (<0.50)
[2025-08-27] MEDS: ACETAMINOPHEN 500 MG TABLET 1000 MG G-TUBE ×4 (09:15→22:35)
[2025-08-27] MEDS: SENNOSIDES 1 TAB TABLET G-TUBE ×2 (09:16→21:22)
[2025-08-27] MEDS: LORATADINE 10 MG TABLET 5 MG G-TUBE (09:16)
[2025-08-27] MEDS: OMEPRAZOLE 20 MG CAPSULE DR G-TUBE ×2 (09:16→21:22)
[2025-08-27] MEDS: APIXABAN 5 MG TABLET 2.5 MG G-TUBE ×2 (09:16→21:23)
[2025-08-27] MEDS: ESCITALOPRAM 10 MG TABLET G-TUBE (09:16)
[2025-08-27] MEDS: METOCLOPRAMIDE 10 MG TABLET G-TUBE ×3 (09:18→21:22)
[2025-08-27] MEDS: SIMETHICONE 80 MG TAB.CHEW G-TUBE ×4 (09:19→21:22)
[2025-08-27] MEDS: ASPIRIN 81 MG TAB.CHEW G-TUBE (09:23)
--- NOTE | 2025-08-27 10:04 | W.PC.NUTR.HO ---
Hospital Nutrition Assessment Patient Data Patient Gender: Male Patient Age: 65 Height: 180.34 cm Weight: 84.03 kg Body Mass Index: 25.8 Weight Calculations [place] Body Weight (lbs): 172.00 [place] Body Weight (kg): 78.02 Percent of [place] Body Weight: 108 Adjusted Body Weight (lbs): 175.31 Adjusted Body Weight (kg): 79.52 Basal Energy Expenditure (BEE): 1677.00 Basal Energy Expenditure (BEE) Adjusted Weight: 1614.99 Activity/Stress Factors Injury Factor/Activity Factor Value: 1.1 Total Energy Requirements Kcal requirements (current wt): 1844.700 Kcal requirements (adj wt): 1776.489 Protein Need (current wt): 1.0 Total Protein (current wt): 84.030 Protein Need (adj wt): 1.0 Total Protein (adj wt): 79.520 Fluid Need (current wt): 25 Total Fluid (current wt): 2100.750 Fluid Need (adj wt): 25 Total Fluid (adj wt): 1988.00 Nutrition Assessment Diet Order: NPO Diet Order Comment: NPO - tube feeding only Allergies: NKFA Appetite and Intake: NPO - tube feeding only Hx Appetite Changes: No Hx Weight Loss: No (Limited wt history in chart. ) Hx Weight Gain: No Nausea: No Vomiting: No Diarrhea: No Hx Constipation: No Chewing Difficulty: Yes Swallowing Difficulty: Yes Pressure Ulcer: No Diagnosis/Symptom or Procedure: Febrile illness Clinical History: Medical history includes but not limited to POLST Chronic ischemic left MCA stroke, History of gastrostomy tube placement, Hypertension, Hyperlipidemia, Hemiplegia affecting left nondominant side, Dysphagia, Feeding by G-tube, and Diabetes mellitus. Patient is non-verbal. He receives tube feedings through G-tube. Current Living Situation: Resident at [facility]. Medications Medications: reviewed. Lab Results Lab Results: reviewed. Enteral Feedings Formula: Peptamen 1.5 Rate: 57 Rate Comment: 57 mL/hr x 22 hours Water Flushes: 90 Comment: 90 mL fluid flush q3 hrs; 30 mL fluid flush before & after feedings & meds Nutrient/Fluid Totals Enteral: Total Calories: 1,875 Calories per Kilogram: 22 Total Protein: 85 Total Protein per Kilogram: 1.0 Total Fluid: 1,860 Total Fluid per Kilogram: 22 Assessment/Plan PES Statement: Inability to chew and swallow related to dysphagia as evidenced by need to G-tube feedings. Nutritional Assessment Summary: RDN with MD consult for tube feeding. Patient with history of stroke and dysphagia with need to enteral tube feedings. He is non-verbal and is a resident at [facility]. Current Tube Feeding Regimen: Peptamen 1.5 @ 57 mL/hr x 22hrs daily (5 cartons total) Fluid Flushes: 90 mL every 3 hours (8 total daily); 30 mL before and after feeding, and meds This regimen is meeting estimated daily calorie and protein needs, however this is currently not meeting fluid needs. RDN will increase fluid flushes to 120 mL every 3 hours (8 total daily) which will meet his fluid needs at 25 mL/kg. Patient's weight history is limited, however his BMI is appropriate for his age at this time. Discharge Plan-Living Situation: [facility] Goals: Receives tube-feeding regimen as above without aspiration or intolerance. Plan/Recommendation: NPO diet order per MD order. Tube Feeding Regimen as follows: Peptamen 1.5 @ 57 mL/hr x 22hrs daily (5 cartons total) Fluid Flushes: 120 mL every 3 hours (8 total daily); 30 mL before and after feeding, and meds RDN will continue to monitor and follow-up prn.
[2025-08-27] MEDS: cefTRIAXone 1 GM in 0.9 % SODIUM CHLORIDE Mini-bag 100 ML IVPB (11:31)
--- NOTE | 2025-08-27 13:55 | P.IMPN_ITS ---
Assessment and Plan Assessment and plan (1) Febrile illness: Problem comment: -fever to 101 recorded at care facility, so far 99 here on the floor. Suspicious UA, coughing history of aspiration with negative chest imaging. Elevated white blood cell count and CRP. -received 1 dose of IV Unasyn -is now receiving IV Rocephin and doxycycline -I suspect he has a UTI and possibly had a episode of aspiration that resulted in a short-term pneumonitis but negative Imaging. -I can narrow him to an oral antibiotic, and he can discharge tomorrow. Status: Acute (2) History of CVA (cerebrovascular accident): Problem comment: 01/2020 - residual effects on the left side, but discharged home; continued to work and drive 02/2023 - devastating right carotid artery stroke, left side hemiparesis, aphasia, no longer swallows - admitted to LTC in April 2023 with gastrostomy tube, 29/05 care. Status: Acute (3) Hemiplegia affecting left nondominant side: Status: Chronic (4) History of gastrostomy tube placement: Status: Acute (5) Feeding by G-tube: Status: Acute (6) Anticoagulant long-term use: Status: Acute Subjective Date Seen: 08/27/25 Interval history: Daily Progress Note - Hospital Medicine Day #: 2 CC: Febrile illness, agitation at the care center 24 HOUR UPDATE: Improved and back to baseline. Patient was actually able to walk with 1 assist which is his baseline today in the hospital room. No further fevers. T-max was 99? overnight. Urine culture has gram neg rods. His lab work is improving - I do note an increase in his crp. Notable Labs, Micro, Rads, Interventions: Vital signs are all normal. He is afebrile. He is on room air satting 96%. White blood cell count down from 15 0.6-7.85. His pH is normal. His sodium has returned to baseline/normal. His renal function is normal. His glucose is 131. His magnesium is normal. I did note that his CRP bumped from 3.9-13.1 Blood cultures are negative, urine cultures growing a Gram-negative pau Objective: Baseline. I can get him to smile and he soda communicates with his eyes. When I asked him if he was happy to see me he kind of granted. Vitals: Reviewed see above Lungs: Clear. No specific concerns Cardiac: S1S2. Disposition/Potential discharge - likely back to his SNF on 08/28. Today I spent 50minutes seeing the patient, reviewing Expanse and EPIC notes/diagnostics, discussing the care plan with our care time that includes social work, PT/OT, pharmacy, RT, correction and documenting my impressions and plan in the medical record. Exam Const: Vital Signs, click to edit/add: Vital Signs - 24 hr 08/26/25 15:00 08/26/25 16:54 08/26/25 18:10 Temperature 98.1 F 99.9 F H 99.9 F H Pulse Rate Pulse Rate [Pulse Oximeter] Respiratory Rate 18 Blood Pressure [Ri ght Radial Artery] 95/61 132/57 L Pulse Oximetry 96 Oxygen Delivery Me thod Room Air 08/26/25 18:14 08/26/25 19:00 08/26/25 23:00 Temperature 99.9 F H 98.7 F Pulse Rate Pulse Rate [Pulse Oximeter] Respiratory Rate 18 18 Blood Pressure [Ri ght Radial Artery] 136/68 Pulse Oximetry 94 Oxygen Delivery Me thod Room Air 08/26/25 23:00 08/27/25 03:00 08/27/25 07:00 Temperature 97.9 F 98 F 96.2 F L Pulse Rate Pulse Rate [Pulse Oximeter] Respiratory Rate 18 18 18 Blood Pressure [Ri ght Radial Artery] 131/70 136/57 L 131/59 L Pulse Oximetry 96 96 98 Oxygen Delivery Me thod Room Air Room Air Room Air 08/27/25 07:00 08/27/25 07:00 08/27/25 11:00 Temperature 98 F Pulse Rate 55 L Pulse Rate [Pulse Oximeter] 61 Respiratory Rate 18 18 Blood Pressure [Ri ght Radial Artery] 121/63 Pulse Oximetry 96 Oxygen Delivery Me thod Room Air 08/27/25 12:10 Temperature Pulse Rate Pulse Rate [Pulse Oximeter] Respiratory Rate Blood Pressure [Ri ght Radial Artery] Pulse Oximetry 96 Oxygen Delivery Me thod Labs Labs: Laboratory Results - last 24 hr 08/27/25 05:47 WBC 7.85 RBC 3.73 L Hgb 11.8 L Hct 35.2 L MCV 94 MCH 32 MCHC 34 RDW Coeff of Namita 12.1 Plt Count 196 Neut % (Auto) 70.0 Lymph % (Auto) 19.7 L [place] % (Auto) 8.9 Eos % (Auto) 0.9 Baso % (Auto) 0.4 Neut # (Auto) 5.49 Lymph # (Auto) 1.50 [place] # (Auto) 0.70 Eos # (Auto) 0.07 Baso # (Auto) 0.03 Abs Immat Gran (auto) 0.01 Imm/Tot Granulo (auto) 0.1 VBG pH 7.366 VBG pCO2 48 VBG pO2 35.1 VBG HCO3 27 Sodium 138 Potassium 4.2 Chloride 105 Carbon Dioxide 27 Anion Gap 6 L BUN 22 Creatinine 0.6 Estimated Creat Clear 77.39 Estimated GFR 106 Glucose 131 H Calcium 8.3 L Magnesium 1.9 C-Reactive Protein 13.1 H Procalcitonin 0.28
--- NOTE | 2025-08-27 13:58 | PC.SOCIAL ---
Addendum entered by RADHA Velez 08/27/25 14:37: Discharge planning: gas worker also sent pt's therapy notes for today, which state that the pt would benefit from rehab/therapies when he returns to [facility]. gas worker asked [facility] if this was possible. [facility] will be the pt's second inpatient hospital night. Social work to follow-up as needed. Original Note: Discharge planning: gas worker sent updated notes to [facility] today; including, the Contact Lens Molder note from today with updated orders for the the pt's tube feeding. gas worker let [facility] know that the pt will most likely be able to discharge back to [facility] tomorrow. Social work to follow-up as needed.
--- NOTE | 2025-08-27 14:09 | PC.NURSE ---
pt assist of 2 to commode, pt occasionally incont. G-tube patent and feedings running per order. No signs of pain or restlessness throughout shift. No complaints throughout shift. Pt is SL, and is in bed. Family at bedside.
--- NOTE | 2025-08-27 19:33 | PC.NURSE ---
End of shift-- Very pleasant, though nonverbal, patient. VSS and pt is afebrile. SPO2 maintained >90% on RA. Pt has appeared comfortable today. Fine crackles auscultated in posterior left base, otherwise CTA. Telemetry shows NSR to sinus lolis. PEG tube is patent and feeding is infusing at 57ml/hour. He was up to the chair and BR with 1-2 assist (for managing equipment) and tolerated it well. Partially incontinent. Ex- was at bedside today and appears loving and supportive.
[2025-08-27] MEDS: ATORVASTATIN CALCIUM 40 MG TABLET 80 MG G-TUBE (21:22)
[2025-08-27] MEDS: MELATONIN 3 MG TABLET 6 MG G-TUBE (21:22)
[2025-08-27] MEDS: GABAPENTIN 300 MG CAPSULE G-TUBE (21:22)
[2025-08-27] MEDS: SODIUM CHLORIDE 0.9 % (FLUSH) 10 ML SYRINGE 5 ML IVF (21:27)
[2025-08-28] MEDS: DOXYCYCLINE HYCLATE 100 MG in 0.9 % SODIUM CHLORIDE Mini-bag 100 ML IVPB (00:19)
[2025-08-28 00:30] VITALS: PULSE 63; RESP 18
[2025-08-28 01:54] VITALS: PULSE 62
[2025-08-28 03:53] VITALS: BP 123/68; PULSE 61; RESP 20; TEMP 36.4; O2SAT 96
--- NOTE | 2025-08-28 07:00 | PC.NURSE ---
end of shift: Pt nonverbal at baseline. Able to point to Y or N on word board. Pt. denied pain pointing to N when RN asked. Pt. on feeding tube shows no kinks; is patent. External catheter in place. HOB at 90 degrees.
[2025-08-28] MEDS: ESCITALOPRAM 10 MG TABLET G-TUBE (09:49)
[2025-08-28] MEDS: APIXABAN 5 MG TABLET 2.5 MG G-TUBE (09:49)
[2025-08-28] MEDS: ASPIRIN 81 MG TAB.CHEW G-TUBE (09:49)
[2025-08-28] MEDS: SENNOSIDES 1 TAB TABLET G-TUBE (09:50)
[2025-08-28] MEDS: METOCLOPRAMIDE 10 MG TABLET G-TUBE (09:50)
[2025-08-28] MEDS: LORATADINE 10 MG TABLET 5 MG G-TUBE (09:50)
[2025-08-28] MEDS: SIMETHICONE 80 MG TAB.CHEW G-TUBE (09:51)
[2025-08-28 10:04] VITALS: BP 144/74; PULSE 63; RESP 20; TEMP 36.7; O2SAT 95
[2025-08-28 10:20] VITALS: PULSE 58
[2025-08-28 12:00] VITALS: O2SAT 95
[2025-08-28] MEDS: CIPROFLOXACIN 500 MG TABLET G-TUBE (12:15)
[2025-08-28] MEDS: OMEPRAZOLE 20 MG CAPSULE DR G-TUBE (12:15)
--- NOTE | 2025-08-28 13:27 | PC.SOCIAL ---
Discharge planning: Pt discharged back to [facility] today via non-emergent EMS. Pt's was notified of this and had no concerns about the pt's return to [facility]. garbage depot worker did go over the non-emergent EMS wheelchair form with the pt's over the phone in case the pt's insurance does not cover the cost of the transport. garbage depot worker explained that the cost would be around $113.00([id number]= 113). Pt's was fine with this cost and stated that the pt has a conservator and that the bill should be sent to them if his insurance does not cover the cost. Pt's conservator is [employer] out of [place] and the correct mailing address for them is listed in the pt's chart. Pt's discharge orders were secure emailed to Donna in Admissions at [facility]. Pt will have orders for PT/OT to be completed at [facility] and billed under the pt's Medicare Part B Blue Cross Blue Shield insurance supplement. Social work to follow-up as needed.
--- NOTE | 2025-08-28 14:02 | PC.NURSE ---
Nursing Care Hours: [id number] Pt this shift calm and cooperative. Using word and letter board to make needs known. Denies pain until IV being used for ABX infusion, then pt reported pain to site. IV removed and ABX switched to oral/G-tube. VSS. Ax1 hand hold ambulation in naylor, tolerated well. Gtube feeding dc'd, and flushed, tubing patent. Skin intact.
--- NOTE | 2025-08-28 14:48 | PM.DS1 ---
DS: Providers Provider Date Seen: 08/28/25 Date of admission: 08/26/25 12:29 Primary care physician: Dean Burris MD Admitting Clinician: Pedro Moon MD Consults: 08/26/25 12:29 Consult to Nutrition [CONS] Routine Comment: Reason for consult:: Nutritional Consult Comment: tube feeds; aspiration risk Consult to Occupational Therapy [CONS] Routine Comment: Reason(s) for OT Consult:: Evaluate and Treat Any Restrictions?:: No Restrictions Consult to Physical Therapy [CONS] Routine Comment: Reason(s) for PT Consult:: Evaluate and Treat Any Restrictions?:: No Restrictions Consult to Respiratory Therapy [CONS] Routine Comment: Reason(s) for RT Consult:: Consult Consult to Pricing Strategist [CONS] Routine Comment: Reason for Consult:: Social Service Consult Attending Physician on discharge: Laney Moon MD [facility] Date of Discharge: 08/28/25 DS: Diagnosis Discharge Diagnosis (1) Febrile illness: Status: Acute Problem details: -fever to 101 recorded at care facility, so far 99 here on the floor. Suspicious UA, coughing history of aspiration with negative chest imaging. Elevated white blood cell count and CRP. -received 1 dose of IV Unasyn -we administered IV Rocephin and doxycycline -urine culture grew pansensitive E coli and possibly had a episode of aspiration that resulted in a short-term pneumonitis but negative chest Imaging. -discharged him on oral ciprofloxacin for 5 more days. Blood cultures ultimately were negative at discharge. (2) History of CVA (cerebrovascular accident): Status: Acute Problem details: 01/2020 - residual effects on the left side, but discharged home; continued to work and drive 02/2023 - devastating right carotid artery stroke, left side hemiparesis, aphasia, no longer swallows - admitted to LTC in April 2023 with gastrostomy tube, 29/05 care. (3) History of gastrostomy tube placement: Status: Acute (4) Feeding by G-tube: Status: Acute (5) Anticoagulant long-term use: Status: Acute (6) Pulmonary embolism: Status: Acute Problem details: during hospitalization for CVA in 2022 DS: Summary Hospital Course Hospital Course: BRIEF HOSPITAL COURSE: Patient was admitted for 3 days. Synopsis of acute inpatient issues are outlined above. Chronic medical conditions with notable findings outlined above. Ranulfo lives at [facility]. He came in agitated with a reported fever. Ranulfo is nonverbal and lives in [facility] secondary to a dense stroke 2 years ago that left him hemiplegic, left side with dependence on G-tube feedings and is nonverbal. His caregiver who knows him well noted his agitation and his fever. Upon investigations we determined he likely had a aspiration event causing a pneumonitis. However his chest imaging was ultimately negative. We did note E coli growing in his urine. I am not totally convinced that that was the cause of the fever but was treated because he is a high risk patient. Within the 1st day of hospitalization, receiving oxygen therapy, antibiotics he was weaned from oxygen and had returned to his baseline. We discontinued IV antibiotics and started oral ciprofloxacin through his G-tube for 5 more days at discharge. DISCHARGE MEDICATIONS: See Reconciled list - SIGNIFICANT CHANGES: Cipro by G tube for five more days Specific instructions to the patient and follow-up are outlined below. REVIEW OF SYSTEMS No new chest pain or dyspnea Pain controlled No voiding difficulties Tolerating his routine G-Tube feedings. PHYSICAL EXAM: CONSTITUTIONAL: Conversive, good historian. A/O. Knows setting and context. GENERAL: Well-developed and in no respiratory distress. VITAL SIGNS: see record. HEENT: Sclerae are anicteric. No petechiae. CARDIAC: rhythm is regular. There is no S3 or rub. No harsh murmurs. Extremities show trace edema with symmetrical pulses. PULM: good air entry with no wheeze. NEURO: Speech is fluent. A brief neurologic exam is negative. SKIN: No rashes, petechiae, concerning changes PSYCHIATRIC: Euthymic. DISPOSITION: return to SNF Time spent on discharge 37 minutes. Status at Discharge Functional status at discharge: uses cane/walker Overall status at discharge: patient is progressing back to baseline Time Spent with Patient Time attestation: Total time spent providing and/or coordinating discharge services: Time spent: Greater than 30 minutes Exam Const: Vital Signs, click to edit/add: Vital Signs - 24 hr 08/27/25 15:00 08/27/25 15:00 08/27/25 15:14 Temperature 98.0 F Pulse Rate 66 Pulse Rate [Pulse Oximeter] 69 69 Respiratory Rate 18 18 Blood Pressure [Le ft Arm] Blood Pressure [Ri ght Radial Artery] 130/56 L Pulse Oximetry 94 Oxygen Delivery Me thod Room Air 08/27/25 19:00 08/28/25 00:30 08/28/25 01:54 Temperature 97.3 F L Pulse Rate 62 Pulse Rate [Pulse Oximeter] 63 63 Respiratory Rate 18 18 Blood Pressure [Le ft Arm] Blood Pressure [Ri ght Radial Artery] 126/53 L Pulse Oximetry 96 Oxygen Delivery Me thod Room Air 08/28/25 03:53 08/28/25 10:04 08/28/25 10:04 Temperature 97.6 F 98.1 F Pulse Rate Pulse Rate [Pulse Oximeter] 61 63 63 Respiratory Rate 20 20 20 Blood Pressure [Le ft Arm] 144/74 H Blood Pressure [Ri ght Radial Artery] 123/68 Pulse Oximetry 96 95 Oxygen Delivery Me thod Room Air Room Air 08/28/25 10:20 08/28/25 12:00 Temperature Pulse Rate 58 L Pulse Rate [Pulse Oximeter] Respiratory Rate Blood Pressure [Le ft Arm] Blood Pressure [Ri ght Radial Artery] Pulse Oximetry 95 Oxygen Delivery Me thod DS: Data Data Completed and Pending Labs on day of discharge: Preliminary micro results at discharge 08/26/25 07:06 Blood Culture - Preliminary Blood NO GROWTH AFTER 48 HOURS 08/26/25 07:00 Blood Culture - Preliminary Blood NO GROWTH AFTER 48 HOURS Discharge Plan Discharge Disposition: [facility] Date of Admission: 08/26/25 12:29 Attending Provider on Discharge: Laney Moon Primary Care Provider: Dean Burris Discharge Medications: New ciprofloxacin HCl [Cipro] 500 mg tablet 500 mg feeding tube BID Qty: 6 0RF Continued acetaminophen 500 mg tablet 1,000 mg feeding tube BID aspirin 81 mg tablet,chewable 1 tab feeding tube DAILY apixaban 2.5 mg tablet 2.5 mg feeding tube BID atorvastatin 80 mg tablet 80 mg feeding tube HS metoclopramide HCl 10 mg tablet 10 mg feeding tube TID sennosides [Natural Senna Laxative] 8.6 mg tablet 17.2 mg feeding tube BID gabapentin 300 mg capsule 300 mg feeding tube HS lansoprazole 30 mg susp,delayed release for recon 30 mg PO BID melatonin 3 mg tablet 6 mg feeding tube HS simethicone [Gas Relief 80 (simethicone)] 80 mg tablet,chewable 80 mg feeding tube QID escitalopram oxalate 10 mg tablet 10 mg feeding tube DAILY loratadine 5 mg/5 mL solution 10 mg feeding tube DAILY lisinopril 10 mg tablet 10 mg feeding tube DAILY Debrox 6.5 % drops 3 drp otic (ear) .TUES@21 Discharge Orders: Discharge Order (Routine); Ordered 08/28/25 Ordered By: Laney Moon Additional Instructions: No change in the POLST. The family communicated to the inpatient team: No chest compressions but if short term ventilator support is needed they said that would be okay. No mcc resp support. Activity Level: Activity as Tolerated Diet Detail: no change to G-Tube changes Follow Up Appointments: Dean Burris MD [Primary Care Provider, [facility]] [facility] Admit to: SNF Discharge Potential: Poor Length of Stay: >90 days Can use facility standing orders?: Yes Code Status: Full Code Rehab Potential: Fair Therapy: Physical Therapy and Occupational Therapy Therapy Orders: Evaluate and Treat Therapy Orders Additional Information: Please have PT/OT evaluate patient post hospitalization for febrile illness Oxygen: No Urinary Catheter: No Orders are good >30 days: Yes
== END 2025-08-28 13:03 | DRG 177 ==
LOC: ED 10:55 → MEDSURG 11:37
PROVIDERS: Admitting Provider Family Medicine; Emergency Provider Family Medicine; PCP Family Medicine; Visit Provider Orthopaedic Surgery
DX: J69.0 Pneumonitis due to inhalation of food and vomit (principal); J96.01 Acute respiratory failure with hypoxia; I69.354 Hemiplegia and hemiparesis following cerebral infarction affecting left non-dominant side; R82.71 Bacteriuria; I69.391 Dysphagia following cerebral infarction; I69.320 Aphasia following cerebral infarction; R13.10 Dysphagia, unspecified; Z93.1 Gastrostomy status; Z79.01 Long term (current) use of anticoagulants; E11.9 Type 2 diabetes mellitus without complications; I10 Essential (primary) hypertension; Z87.891 Personal history of nicotine dependence; Z86.711 Personal history of pulmonary embolism; E78.5 Hyperlipidemia, unspecified
CPT/HCPCS: 36415; 71045; 71250; 74177; 80048; 80076; 81001; 82803; 83605; 83735; 83880; 84145; 84484; 85025; 86140; 87040; 87081; 87086; 87631; 93005; 94761; 97116; 97162; 97165; 97530; 97535; 99285; A9270; J0295; J0696; J1885; J7030; Q9967

== ENCOUNTER 2025-08-28 13:01 | Outpatient (CLI) | payer MEDICARE, BC, SELFPAY | END 2025-08-28 13:02 | disposition home or self-care (01) | LOC: AMB 09-01 02:41 | PROVIDERS: PCP Family Medicine; Visit Provider Family Medicine | DX: R50.9 Fever, unspecified (principal); Z86.73 Personal history of transient ischemic attack (TIA), and cerebral infarction without residual deficits; Z79.01 Long term (current) use of anticoagulants | CPT/HCPCS: A0425; A0428 ==

== ENCOUNTER 2025-09-22 15:28 | Outpatient (CLI) | payer MEDICARE, BC, SELFPAY | END 2025-09-22 15:29 | disposition home or self-care (01) | LOC: AMB 09-25 16:08 | PROVIDERS: PCP Family Medicine; Visit Provider Family Medicine | DX: Z43.1 Encounter for attention to gastrostomy (principal) | CPT/HCPCS: A0425; A0427 ==

== ENCOUNTER 2025-09-30 03:27 | Outpatient (CLI) | payer MEDICARE, BC, SELFPAY | END 2025-09-30 03:28 | disposition home or self-care (01) | LOC: AMB 10-03 01:10 | PROVIDERS: PCP Family Medicine; Visit Provider Emergency Medicine | DX: R06.09 Other forms of dyspnea (principal) | CPT/HCPCS: A0425; A0429 ==

== ENCOUNTER 2025-09-30 03:49 | Inpatient (IN) | payer MEDICARE, BC, SELFPAY ==
--- OUTSIDE RECORDS SUMMARY | 2025-08-16 05:10 | XMS_ITS | Encounter Summary ---
Author Organization [facility] Address [address] [place] [id number] Care Team Providers Care Analytical Strategist Name Role Phone None Reported, Pcp Primary Care Provider Unavail able Reason for Visit * Reason Comments Tube Problem Encounter Details Date Type Department Care Team ([facility] st Contact Info) Description 08/16/2025 6:10 AM CDT - 08/16/2025 11:39 AM CDT Emergency [facility] Emergency Department [address] [place] [phone] Jorge Alberto Diaz D.O. [address] [place] [id number] Jono Caceres M.D. [address] [place] [phone] Dysfunction Gastric Tube Initial (Primary Dx) Discharge Disposition: Home or Self Care Social [...] place to sleep or slept in a group home (including now)? No 01/22/2023 Education Answer Date Recorded What is the highest level of school you have completed or the highest degree you have received? 12th grade 02/28/2020 Sex and Gender Information Value Date Recorded Sex Assigned at Male 09/16/2021 7:21 PM CARPET INSPECTOR FINISHED Legal Sex Male 10:26 AM CARPET INSPECTOR FINISHED Gender Identity Male 12/17/2020 7:55 PM CARPET INSPECTOR FINISHED Sexual Orientation Straight 12/17/2020 7: 55 PM CARPET INSPECTOR FINISHED documented as of this encounter Last Filed Vital Signs Vital Sign Reading Time Taken Comments Blood Pressure 117/68 08/16/2025 11:20 AM CDT Pulse 71 08/16/2025 10:15 AM CDT Temperature 36.5 C (97.7 F) 08/16/2025 9:15 AM CDT Respiratory Rate 16 08/16/2025 11:20 AM CDT Oxygen Saturation 95% 08/16/2025 11:20 AM CDT Inhaled Oxygen Concentration - - Weight - - Height - - Body Mass Index - - documented in this encounter Discharge Instructions * Discharge Instructions* Jono Caceres M.D. - 08/16/2025 11:28 AM CDT Follow-up closely with your primary care physician. Protect your feeding tube to ensure that it does not dislodge. documented in this encounter Medications at Time [...] daily. 04/07/2023 documented as of this encounter Progress Notes * Geo Cruz, Marco A.S.Jayant., L.I.C.S.W. - 08/16/2025 8:38 AM CDT SUBJECTIVE Emergency Department social sciences lecturer is consulted by ED RN, Ynes, to assist with transportation resources. Nursing reports the patient is ready for discharge back to his fpc facility, [facility], in [place]. Patient is needing wheelchair transport, and does not need supplemental oxygen for the transport. Nurse to nurse report has been completed. Patient in currently located in C10 of the Emergency Department. Patient is nonverbal at baseline; therefore, social work calls and speaks with patient's , Mely (phone: [phone]). Social work introduces self and reviews the role of social work in the emergency department. Mely verbalizes an understanding of ED social work role as part of patient's treatment team. Mely appears to be a reliable historian for the purpose of this assessment. Mely reports that patient currently resides at his fpc facility, [facility] (address: [address] [place] [address]). Mely notes no concerns with patient returning to the above facility. Mely agrees to da ent needing wheelchair transportation; therefore, social work arranges transportation via [employer] this morning on patient's behalf. Nursing is updated. OBJECTIVE Emergency Department Social work was consulted to assist with transportation back to patient's fpc facility - [facility] (address: [address] [place] [address]). Social work arranged transportation with [employer]. ASSESSMENT / PLAN ASSESSMENT Transport resources were explored and arranged to assist with the patient's needs. The patient appears to have insight into their needs at this time. PLAN 1. [employer] to provide return transportation to patient's fpc facility, [facility] (address: [address] [place] [address]). 2. Please contact social work if further supportive or dismissal needs arise. Eloy Aviles, L.I.C.S.W. 08/16/2025 documented in this encounter Procedure Notes * Shelly Mckeon M.D. - 08/16/2025 9:05 AM CDT PATIENT DISPOSITION Return to Outpatient Unit for recovery. Discharge patient when discharge criteria met. POST-PROCEDURE DIAGNOSIS Gastrostomy tube replacement 18 [place] (9cc in balloon) PROCEDURE PERFORMED AND DESCRIPTION Gastrostomy tube replacement 18 [place] (9cc in balloon) PROCEDURE DETAILS See Radiology Report SPECIMENS REMOVED None FINDINGS See radiology report PRIMARY PROCEDURALIST [place] ASSISTANTS Don Ko COMPLICATIONS None. DRAINS Gastrostomy tube replacement 18 Citizen [place] (9cc in balloon) IMPLANTS None. ANESTHESIA None. ESTIMATED BLOOD LOSS None CURRENT MEDICATIONS No Medication Changes FOLLOW-UP LETTER None. MAY RETURN TO WORK Not applicable PATIENT INSTRUCTIONS For your next scheduled appointment documented in this encounter ED Notes * Jono Caceres M.D. - 08/16/2025 11:[address] Jorge Alberto Diaz The gastric tube has been replaced by Interventional Radiology. We will discharge to home. VITAL SIGNS BP 115/62 Pulse 71 Temp 36.5 ??C (Axillary) Resp 16 SpO2 95% Final Diagnoses: as of 08/16/25 1128 Dysfunction Gastric Tube Initial I have personally seen and examined this patient. I have fully participated in the care of this patient. I have reviewed all clinical information including history, physical exam, orders, and plan. Iagree with the note of the resident. Jono Caceres M.D. 08/16/25 1127 * Angeline Tello M.D. - 08/16/2025 9:49 AM CDT Care of patient transferred to nd by Dr. Tariq Isidro. Briefly, this is a 65-year-old male who presented to the emergency department following G-tube dislodgement. Disposition will be discharge after IR replacement. VITAL SIGNS BP 117/68 Pulse 71 Temp 36.5 ??C (Axillary) Resp 16 SpO2 95% ED Course as of 08/16/25 1604 Sat Aug 16, 2025 0949 IR has successfully replaced the G-tube. Social work is assisting with getting the patient safely back home. 1128 Patient's home medications were given in the emergency department this morning. Transport was arranged by social work. The patient was discharged back home to the [facility]. Final Diagnoses: as of 08/16/25 1604 Dysfunction Gastric Tube Initial Angeline Tello M.D. Resident 08/16/25 1604 * Jorge Alberto Diaz D.O. - 08/16/2025 8:00 AM CDT I have personally seen and examined this patient. I have fully participated in the care of this patient. I have reviewed all clinical information including history, physical exam, orders, and plan. Cristela with the note of the resident. This is a 65-year-old male who is G-tube dependent. He presents the emergency department after his G-tube became accidentally dislodged while having a bath at his care facility earlier this morning. The facility was able to place a Kelley catheter in the stoma to preserve the trach. Upon arrival, patient is hemodynamically stable and in no acute distress. Abdominal exam demonstrates no focal tenderness. We are reaching out to our IR colleagues to see if we can get the G-tube replaced from the emergency department. Ultimately the patient will be signed out to the daytime team to follow up in his procedure and to determine a final disposition. Otherwise I do not think that the patient warrantsany emergent imaging at this time and I am optimistic that he will be appropriate for ED discharge once his G-tube is replaced. Final Diagnoses: as of 08/16/252007 Dysfunction Gastric Tube Initial Jorge Alberto Diaz D.O. 08/16/25800 Jorge Alberto Diaz D.O. 08/16/252007 * Rosario Arana R.N. - 08/16/2025 6:28 AM CDT Pt brought in from [facility] with EMS. Pt had a G-tube replaced yesterday. Per facility, this morning at 5 am, while doing the daily care, the G-tube came out and they put a kelley catheter in its place. Pt has a hx of stroke and is non-verbal at baseline. Allergy and home meds reviewed with the nurse at the facility. Pt is on aspirin and Eliquis. Rosario Arana R.N. 08/16/25 0636 * Tariq Isidro M.D. - 08/16/2025 6:19 AM CDT SUBJECTIVE CHIEF COMPLAINT/REASON FOR VISIT Tube Problem HISTORY OF PRESENT ILLNESS Ranulfo Carrera is a 65-year-old male who comes in after dislodgement of G tube. He has a medical history significant for GERD, hypertension, hyperlipidemia, T2DM, PE, DVT, and hemiplegia and hemiparesis following CVA. He requires percutaneous gastrostomy tube. He was receiving a bath yesterday morning from chief nursing officer at his [facility] care center around 5 AM. The tube was somehow dislodged. They placed a kelley catheter into the stoma and he presented to the hospital to have the rube replaced by IR... It happened again this morning. While receiving a bath today, the tube again was dislodged. A catheter was again placed and he was brought to the ED. Patient himself unable to provide a history or answer ROS questions due to inability to speak. There were no other concerns or complaints for this visit. REVIEW OF SYSTEMS Negative except for as stated above in the HPI. OBJECTIVE Initial Vitals [08/16/25 0615] Temperature 36.4 ??C Pulse Rate (!) 55 Heart Rate Resp Rate 16 Blood Pressure 135/73 SpO2 94 % Pain Score PHYSICAL EXAMINATION Examination reveals patient in bed seemingly in no acute distress. Catheter in stoma. No surrounding erythema, edema, or warmth. Abdomen is soft. Exam otherwise unrevealing. ASSESSMENT/PLAN A 65-year-old patient with a history of cerebrovascular accident presents to the emergency department for a dislodged G-tube, which also occurred yesterday. No obvious abdominal pain, fever, vomiting, or bleeding from the site. On exam, the G-tube site appears intact with no surrounding irritation and no signs of infection, drainage, or peritonitis. The differential includes simple G-tube dislodgement, tract disruption, nothing to suggest early infection at the tube site. Given the recurrence, there is also consideration for loose tract or improper anchoring. To assess for complications and ensure safe replacement, a CBC and BMP are ordered toevaluate for infection and electrolyte abnormalities. Interventional radiology will again be consulted for G-tube replacement given the duration of dislodgement and need for fluoroscopic confirmation of placement. The patient remains stable in the ED and will be kept NPO pending the procedure. Disposition will depend on successful tube replacement andtolerance of feeds. ED Course as of 08/16/25 0654 Sat Aug 16, 2025 0654 Patient signed out to the evening team, in short, this is a 65-year-old male who comes to the ED following G tube dislodgement. Discharge after IR replacement. Tariq Isidro M.D. Resident 08/16/25 0642 documented in this encounter Plan of Treatment Not on file documented as of this encounter Procedures Procedure Name Priority Date/Time Associated Diagnosis Comments IR GASTROSTOMY TUBE PLACEMENT RAD - Semiurgent (Fast; most ED patients; some inpatients) 08/16/2025 9:05 AM CDT CBC WITH DIFFERENTIAL, B STAT 08/16/2025 6:39 AM CDT BASIC METABOLIC PANEL, S/P STAT 08/16/2025 6:39 AM CDT documented in this encounter Results * IR Gastrostomy Tube Placement (08/16/2025 9:05 AM CDT) Anatomical Region Laterality Modality Abdomen, Vascular Interventi onal RST LOS, Vascular Interventional ARZ LOS, Vascular Interventional FLA LOS N/A X-Ray Angiography Impressions 08/16/2025 10:35 AM CDT Placement of 18 Citizen [place] percutaneous gastrostomy tube. Nothing by mouth or tube for 2 hours (strict). Then use of mouth or tube for water, medications, and/or tube feeds per Nutrition note/order. Exchange tube in 3-5 months. Contact the [facility] clinic at [phone] to schedule the tube exchange. EP Narrative 08/16/2025 10:35 AM CDT EXAM: IR GASTROSTOMY TUBE PLACEMENT CLINICAL HISTORY: Patient with retrobulbar catheter that was placed for G-tube which was displaced. He is here for replacement of the red rubber catheter with a new G-tube Pre-Procedure Diagnosis: Malpositioned G-tube Indication: TECHNIQUE: Skin overlying the red rubber catheter was prepped and draped usual sterile fashion. Coin Teller film was obtained. The tube was injected. Balloon port was aspirated until all the contents were removed. A stiff Glidewire was placed. A new 18 Citizen [place] G-tube was placed. This was inflated to 9 mm cyst with dilute contrast. Contrast was injected through both ports and there is no evidence of obstruction. The increased volume was used so the balloon wouldn't stay in place. The disc height was set at 2 cm. Routine change in 3-5 months is recommended. Tube Type: Gastrostomy, [place]. Tube Connection: ENFit. Tube Size: 18 [place]. Low Profile: No. Disc Height: 2 cm. Balloon Volume: 9 mL. PREPROCEDURE: Patient seen and evaluated. Allergies, [...] residents, and fellows were discussed. Procedure Note Christiano Lozano M.D. - 08/16/2025 EXAM: IR GASTROSTOMY TUBE PLACEMENT CLINICAL HISTORY: Patient with retrobulbar catheter that was placed forG-tube which was displaced. He is here for replacement of the red rubbercatheter with a new G-tube Pre-Procedure Diagnosis: Malpositioned G-tube Indication: TECHNIQUE: Skin overlying the red rubber catheter was prepped and drapedusual sterile fashion. Coin Teller film was obtained. The tube was injected.Balloon port was aspirated until all the contents were removed. A stiffGlidewire was placed. A new 18 [place] G-tube was placed. This was inflatedto 9 mm cyst with dilute contrast. Contrast was injected through bothports and there is no evidence of obstruction. The increased volume wasused so the balloon wouldn't stay in place. The disc height was set at 2cm. Routine change in 3-5 months is recommended. Tube Type: Gastrostomy, [place]. Tube Connection: ENFit. Tube Size: 18 Citizen [place]. Low Profile: No. Disc Height: 2 cm. Balloon Volume: 9 mL. PREPROCEDURE: Patient seen and evaluated. Allergies, [...] team members, residents, and fellowswere discussed. IMPRESSION: Placement of 18 Citizen [place] percutaneous gastrostomy tube. Nothing by mouth ortube for 2 hours (strict). Then use of mouth or tube for water,medications, and/or tube feeds per Nutrition note/order. Exchange tube in3-5 months. Contact the [facility] clinic at [phone] to schedule the tubeexchange. EP us Tariq Isidro M.D. IMG IR PROCEDURES Final R esult * (ABNORMAL) Basic Metabolic Panel (08/16/2025 6:39 AM CDT) Potassium, P 4.7 3.6 - 5.2 mmol/L 08/16/2025 6:59 AM CDT [facility] Sodium, P 139 135 - 145 mmol/L 08/16/2025 6:59 AM CDT [facility] Chloride, P 102 98 - 107 mmol/L 08/16/2025 6:59 AM CDT [facility] Bicarbonate, P 28 22 - 29 mmol/L 08/16/2025 6:59 AM CDT [facility] Anion Gap, P 9 7 - 15 08/16/2025 6:59 AM CDT [facility] BUN (Blood Urea Nitrogen), P 18 8 - 24 mg/dL 08/16/2025 6:59 AM CDT [facility] Creatinine 0.69(L) 0.74 - 1.35 mg/dL 08/16/2025 6:59 AM CDT [facility] Estimated GFR (eGFR) >90 >=60 mL/min/BSA 08/16/2025 6:59 AM CDT [facility] Comment: Estimated GFR calculated using the 2020 CKD_EPI creatinine equation. Calcium, Total, P 8.8 8.8 - 10.2 mg/dL 08/16/2025 6:59 AM CDT [facility] Glucose, P 107 70 - 140 mg/dL 08/16/2025 6:59 AM CDT [facility] Blood (Blood, Venous) 08/16/2025 6:39 AM CDT 08/16/2025 6:43 AM CDT Tariq Isidro M.D. LAB BLOOD ADD-ON Final Re sult [facility] [address] [place] [address], [facility] STMA [facility] [address] [place] [address] * CBC with Differential, Blood (08/16/2025 6:39 AM CDT) Hemoglobin 13.7 13.2 - 16.6 g/dL 08/16/2025 6:45 AM CDT [facility] Hematocrit 40.3 38.3 - 48.6 % 08/16/2025 6:45 AM CDT [facility] Erythrocytes 4.38 4.35 - 5.65 x10(12)/L 08/16/2025 6:45 AM CDT [facility] MCV 92.0 78.2 - 97.9 fL 08/16/2025 6:45 AM CDT [facility] RBC Distrib Width 11.8 11.8 - 14.5 % 08/16/2025 6:45 AM CDT [facility] Platelet Count 259 135 - 317 x10(9)/L 08/16/2025 6:45 AM CDT [facility] Leukocytes 6.5 3.4 - 9.6 x10(9)/L 08/16/2025 6:45 AM CDT [facility] Neutrophils 3.82 1.56 - 6.45 x10(9)/L 08/16/2025 6:45 AM CDT [facility] Lymphocytes 1.94 0.95 - 3.07 x10(9)/L 08/16/2025 6:45 AM CDT [facility] Monocytes 0.58 0.26 - 0.81 x10(9)/L 08/16/2025 6:45 AM CDT [facility] Eosinophils 0.09 0.03 - 0.48 x10(9)/L 08/16/2025 6:45 AM CDT [facility] Basophils <0.03 0.01 - 0.08 x10(9)/L 08/16/2025 6:45 AM CDT [facility] Blood (Blood, Venous) 08/16/2025 6:39 AM CDT 08/16/2025 6:43 AM CDT Tariq Isidro M.D. LAB BLOOD ADD-ON Final Re sult [facility] [address] [place] [address], [facility] STMA [facility] [address] [place] [address] DH[facility] [address] [place] [address] documented in this encounter Visit Diagnoses Diagnosis Dysfunction Gastric Tube Initial- Primary documented in this encounter Administered Medications Inactive Administered Medications - up to 3 most recent administrations Medication Order MAR Action Action Date Dose Rate Site apixaban tablet 5 mg (Eliquis) 5 mg, gastric tube, Once, On 08/16/25 at 0957, For 1 dose Given 08/16/2025 10:22 AM CDT 5 mg aspirin chewable tablet 81 mg 81 mg, gastric tube, Once, On 08/16/25 at 0957, For 1 dose Given 08/16/2025 10:22 AM CDT 81 mg escitalopram tablet 10 mg (Lexapro) 10 mg, gastric tube, Once, On 08/16/25 at 0957, For 1 dose Given 08/16/2025 10:22 AM CDT 10 mg iohexoL 300 mg iodine/mL solution (Omnipaque) As needed, Starting on 08/16/25 at 0904, Intra-Op Given 08/16/2025 9:04 AM CDT 30 mL lansoprazole suspension 30 mg (Prevacid) 30 mg, gastric tube, Once, On 08/16/25 at 0957, For 1 dose Given 08/16/2025 10:22 AM CDT 30 mg lisinopriL tablet 20 mg 20 mg, gastric tube, Once, On 08/16/25 at 0957, For 1 dose Given 08/16/2025 10:22 AM CDT 20 mg documented in this encounter Active and Recently Administered Medications Times are shown in CDT. Scheduled Medication Order 08/14/2025 08/15/2025 08/16/2025 apixaban tablet 5 mg (Eliquis) (COMPLETED) 5 mg, gastric tube, Once, On 08/16/25 at 0957, For 1 dose 1022 (Given - Provid er: Yasmin Dumas, R.N.) aspirin chewable tablet 81 mg (COMPLETED) 81 mg, gastric tube, Once, On 08/16/25 at 0957, For 1 dose 1022 (Given - Provid er: Yasmin Dumas, R.N.) escitalopram tablet 10 mg (Lexapro) (COMPLETED) 10 mg, gastric tube, Once, On 08/16/25 at 0957, For 1 dose 1022 (Given - Provid er: Yasmin Dumas, R.N.) lansoprazole suspension 30 mg (Prevacid) (COMPLETED) 30 mg, gastric tube, Once, On 08/16/25 at 0957, For 1 dose 1022 (Given - Provid er: Yasmin Dumas, R.N.) lisinopriL tablet 20 mg (COMPLETED) 20 mg, gastric tube, Once, On 08/16/25 at 0957, For 1 dose 1022 (Given - Provid er: Yasmin Dumas, R.N.) PRN Medication Order 08/14/2025 08/15/2025 08/16/2025 iohexoL 300 mg iodine/mL solution (Omnipaque) (COMPLETED) As needed, Starting on 08/16/25 at 0904, Intra-Op 0904 (Given - Provid er: Christiano Lozano M.D.) documented in this encounter Care Teams Analytical Strategist Relationship Specialty Start Date End Date None Reported, Pcp PCP - General Family Medicine 04/08/25 documented as of this encounter
--- OUTSIDE RECORDS SUMMARY | 2025-09-22 16:46 | XMS_ITS | Encounter Summary ---
Author Organization [facility] Address [address] [place] [address] Care Team Providers Care Construction Controller Name Role Phone None Reported, Pcp Primary Care Provider Unavail able Reason for Visit * Reason Comments Tube Problem Encounter Details Date Type Department Care Team (Late st Contact Info) Description 09/22/2025 4:46 PM JET WIPER - 09/22/2025 7:20 PM JET WIPER Emergency [facility] Emergency Department [address] [place] [id number] Derik Davis D.O. [address] [place] [id number] Dysfunction Gastric Tube Initial (Primary Dx) Discharge [...] place to sleep or slept in a longterm (including now)? No 01/22/2023 Education Answer Date Recorded What is the highest level of school you have completed or the highest degree you have received? 12th grade 02/28/2020 Sex and Gender Information Value Date Recorded Sex Assigned at Male 09/16/2021 7:21 PM JET WIPER Legal Sex Male 10:26 AM JET WIPER Gender Identity Male 12/17/2020 7:55 PM JET WIPER Sexual Orientation Straight 12/17/2020 7: 55 PM JET WIPER documented as of this encounter Last Filed Vital Signs Vital Sign Reading Time Taken Comments Blood Pressure 125/65 09/22/2025 4:58 PM JET WIPER Pulse 58 09/22/2025 4:58 PM JET WIPER Temperature 37.4 C (99.3 F) 09/22/2025 4:58 PM JET WIPER Respiratory Rate 16 09/22/2025 4:58 PM JET WIPER Oxygen Saturation 96% 09/22/2025 4:58 PM JET WIPER Inhaled Oxygen Concentration - - Weight - - Height - - Body Mass Index - - documented in this encounter Medications at Time [...] as of this encounter Progress Notes * Emiyl Pope M.S.W., Tod. - 09/22/2025 6:11 PM CST SUBJECTIVE Emergency Department (ED) social work is consulted by ED RN, Omar, to assist with transportation resources. RN Omar reports the patient is ready for discharge to his intermediate facility, [facility] in [place]. RN to RN has been completed.The patient is needing wheelchair transport, and does not need supplemental oxygen for the transport. Patient is not oriented at baseline. Social work contacts patient's Anali ([phone]). Social work introduces self and reviews the role of social work in the Emergency Department. Sharonda appears to be a reliable historian for the purpose of the assessment. Anali and underwriter mortgage loan discuss transportation options. Anali reports needing assistance with covering the cost of transportation. Social work arranges wheelchair transportation with [facility] and updates nursing of the estimated time of arrival. OBJECTIVE Social work is consulted to assist with transportation resources as the patient is ready for discharge from the Emergency Department. ASSESSMENT / PLAN ASSESSMENT Based on report received from ED RN, patient is ready for discharge. Transportation resources are explored and arranged to meet the patient's needs. Patient's appears to have insight into patient's needs at this time. PLAN [facility] ([phone]) is arranged to bring the patient to [facility]: [address] [place] [address]. Transportation Is Paid For By: Other ED social work remains available as supportive or dismissal needs arise. lEoy Chery, Tod. 09/22/2025 WIPER documented in this encounter ED Notes * Omar Lala R.N. - 09/22/2025 5:27 PM CST PT presents to [facility] ED for replacement of GI Tube. Pt has a hx of stroke with aphasia and right sided weakness and is unable to answer questions at baseline. EMS reports pt's g-tube came out and needsto be replaced. No vomiting or diarrhea. VSS. Initial Vitals [09/22/25 1658] Temperature 37.4 ??C (99.3 ??F) Pulse Rate (!) 58 Heart Rate Resp Rate 16 Blood Pressure 125/65 SpO2 96 % Pain Score 0 - No pain Omar Lala R.N. 09/22/25 1740 WIPER * Derik Davis D.O. - 09/22/2025 4:56 PM CST The patient verbally consented to an audio recording of their visit to assist with the completion of documentation. SUBJECTIVE CHIEF COMPLAINT/REASON FOR VISIT Tube Problem HISTORY OF PRESENT ILLNESS History of Present Illness Mr. Ranulfo Carrera is a 65 year old male with a history of stroke who presents with a dislodged G-tube. Gastrostomy tube dislodgement - G-tube frequently slips out, requiring replacement - Current episode due to ruptured G-tube balloon, resulting in tube dislodgement - Catheter temporarily placed to maintain stoma patency - Interventional radiology previously required for replacement, but unavailable at this time, prompting emergency department visit Communication and neurological status - Non-verbal, communicates through gestures such as pointing and smiling - Movement present in right arm - Able to respond to questions by pointing Living situation and transportation - Resides in long-term ([facility]) - Family typically transports him by car for medical appointments - Family unavailable at the time of current incident REVIEW OF SYSTEMS Not available. Patient non communicative. OBJECTIVE Initial Vitals Temp Pulse Heart Rate Resp BP SpO2 Pain Score PHYSICAL EXAMINATION Physical Exam Abdomen soft. No bleeding from the site. ASSESSMENT/PLAN Medical Decision Making A 65-year-old male with a history of stroke, nonverbal but able to follow commands, presented from a long-term after accidental dislodgement of his gastrostomy tube due to balloon rupture. The tube was not replaced at the facility, and he was brought to the Emergency Department for evaluation and management. On exam, he was alert, able to follow simple commands, and had right arm movement. Blood glucose was normal and vital signs were obtained. Gastrostomy tube malfunction (dislodgement due to balloon rupture) Dislodged gastrostomy tube due to balloon rupture, requiring replacement. - Replaced gastrostomy tube with an 18 Ivorian tube in the Emergency Department. - Tested tube to ensure appropriate function prior to discharge. - Coordinated discharge home with family for transportation. Final Diagnoses: as of 09/23/25 1544 Dysfunction Gastric Tube Initial Derik Davis D.O. 09/23/25 1544 WIPER documented in this encounter Plan of Treatment Not on file documented as of this encounter Visit Diagnoses Diagnosis Dysfunction Gastric Tube Initial- Primary documented in this encounter Active and Recently Administered Medications Care Teams Construction Controller Relationship Specialty Start Date End Date None Reported, Pcp PCP - General Family Medicine 04/08/25 documented as of this encounter
[2025-09-30] VITALS (32 sets, daily range): BP systolic 95–155; BP diastolic 59–89; PULSE 75–108; RESP 22–36; TEMP 37.1–38.7; O2SAT 87–96; BMI 26.2; BMI 26.3
--- OUTSIDE RECORDS SUMMARY | 2025-09-30 03:52 | XMS_ITS | Clinical Summary ---
Author Organization [facility] Address [address] [place] [address] Care Team Providers Care Rubberizing Mechanic Name Role Phone None Reported, Pcp Primary Care Provider Unavail able Source Comments Patient records contain information from all sites at [facility]. For routine questions regarding patient records, call [phone] during business hours, M-F 8:00 AM - 5:00 PM Central Time. Record requests for emergency care only can be directed to [phone] at any time.[facility] Allergies No known active allergies Medications * [...] (12/18/2020): Added automatically from request for surgery [id number] Dysarthria 06/10/2020 04/19/2023 Stroke 01/27/2020 12/24/2020 Smoking Tobacco Use Personal History 11/22/2019 07/09/2021 Dependence Nicotine 11/13/2019 12/24/19 21 Cataract Senile Nuclear Sclerosis Right 09/26/2019 07/09/2021 Overview (09/26/2019): Added automatically from request for surgery [id number] Cataract Senile Nuclear Sclerosis Left 09/26/2019 07/09/2021 Overview (09/26/2019): Added automatically from request for surgery [id number] Stenosis Carotid Artery Left 01/13/2012 07/09/2021 Hemiplegia And Hemiparesis F ollowing Cerebral Infarction Affecting Right Nondominant Side 12/24/2020 Encounters * This document contains information received from the source organization and may not represent a complete record from that organization. Date Type Department Care Team Description 09/22/2025 4:46 PM SIGNING TEACHER - 09/22/2025 7:20 PM SIGNING TEACHER Emergency [facility] Emergency Department [address] [place] [phone] Derik Davis D.O. Dysfunction Gastric Tube Initial (Primary Dx) Discharge Disposition: Home or Self Care 08/16/2025 6:10 AM CDT - 08/16/2025 11:39 AM CDT Emergency [facility] Emergency Department [address] [place] [phone] Jorge Alberto Diaz D.O. Winters, Richard C, M.D. Dysfunction Gastric Tube Initial (Primary Dx) Discharge Disposition: Home or Self Care 08/15/2025 9:52 AM CDT - 08/15/2025 1:01 PM CDT Hospital Encounter Department of Radiology in [address] [phone] Tamiko Malik APRN, C.N.P., D.N.P. Derik Hernandez M.D. FahmShelly Lopez M.D. Dietary Counseling And Surveillance For Enteral Nutrition Discharge Disposition: Home or Self Care 07/31/2025 Documentation Division of General Internal Medicine in [address] [phone] Lashawn Murphy, R.N. Scheduling 07/30/2025 Orders Only Division of Endocrinology in [place], [place] [address] [place] [phone] Lashawn Murphy R.N. Dietary Counseling And Surveillance For Enteral Nutrition (Primary Dx) 07/30/2025 Clinical Communication Division of General Internal Medicine in [address] [phone] Tamiko Malik APRN, C.N.P., D.N.P. from Last [...] place to sleep or slept in a skilled nursing (including now)? No 01/22/2023 Education Answer Date Recorded What is the highest level of school you have completed or the highest degree you have received? 12th grade 02/28/2020 Sex and Gender Information Value Date Recorded Sex Assigned at Male 09/16/2021 7:21 PM SIGNING TEACHER Legal Sex Male 10:26 AM SIGNING TEACHER Gender Identity Male 12/17/2020 7:55 PM SIGNING TEACHER Sexual Orientation Straight 12/17/2020 7: 55 PM SIGNING TEACHER Last Filed Vital Signs Vital Sign Reading Time Taken Comments Blood Pressure 125/65 09/22/2025 4:58 PM SIGNING TEACHER Pulse 58 09/22/2025 4:58 PM SIGNING TEACHER Temperature 37.4 C (99.3 F) 09/22/2025 4:58 PM SIGNING TEACHER Respiratory Rate 16 09/22/2025 4:58 PM SIGNING TEACHER Oxygen Saturation 96% 09/22/2025 4:58 PM SIGNING TEACHER Inhaled Oxygen Concentration - - Weight 81.5 [...] (#1) 2025 11/17/2020 Hemoglobin A1C 02/10/2026 08/12/2025, 0211/2024, 05/28/2024, Additional history exists Colonoscopy 04/23/2026 04/23/2021 [...] this topic Medical Devices Implanted Type Area Nurse Practical Device Identifier Shelf Expiration Date Model / Serial / Lot Stnt Protege 0.014 [id number] - [id number] Implanted:Qty : 1 on 01/27/2020 at [facility] Cardiac Stent [employer] 05/13/2021 [id number]-8-30 [id number] / / [id number] Lens Tcn [id number] Bicnvx +19.0d - [id number] - [id number] Implanted:Qty : 1 on 12/02/2019 by Chirag Harrington M.D. at [facility] Ocular Lens Right: Eye [employer] (Previously DANILO) [id number] 06/19/2023 [id number] / [id number] / Lens Tcn [id number] Bicnvx +18.5d - [id number] - [id number] Implanted:Qty : 1 on 12/16/2019 by Chirag Harrington M.D. at [facility] Ocular Lens Left: Eye [employer] (Previously DANILO) [id number] 04/27/2022 [id number] / [id number] / Procedures Procedure Name Priority Date/Time [...] 08/16/2025 10:35 AM CDT Placement of 18 Vietnamese percutaneous gastrostomy tube. Nothing by mouth or tube for 2 hours (strict). Then use of mouth or tube for water, medications, and/or tube feeds per Nutrition note/order. Exchange tube in 3-5 months. Contact the [facility] clinic at [phone] to schedule the tube exchange. EP Narrative 08/16/2025 10:35 AM CDT EXAM: IR GASTROSTOMY TUBE PLACEMENT CLINICAL HISTORY: Patient with retrobulbar catheter that was placed for G-tube which was displaced. He is here for replacement of the red rubber catheter with a new G-tube Pre-Procedure Diagnosis: Malpositioned G-tube Indication: TECHNIQUE: Skin overlying the red rubber catheter was prepped and draped usual sterile fashion. Collator film was obtained. The tube was injected. Balloon port was aspirated until all the contents were removed. A stiff Glidewire was placed. A new 18 Vietnamese G-tube was placed. This was inflated to 9 mm cyst with dilute contrast. Contrast was injected through both ports and there is no evidence of obstruction. The increased volume was used so the balloon wouldn't stay in place. The disc height was set at 2 cm. Routine change in 3-5 months is recommended. Tube Type: Gastrostomy, nenana. Tube Connection: ENFit. Tube Size: 18 Vietnamese. Low Profile: No. Disc Height: 2 cm. [...] catheter was prepped and drapedusual sterile fashion. Collator film was obtained. The tube was injected.Balloon port was aspirated until all the contents were removed. A stiffGlidewire was placed. A new 18 Vietnamese G-tube was placed. This was inflatedto 9 mm cyst with dilute contrast. Contrast was injected through bothports and there is no evidence of obstruction. The increased volume wasused so the balloon wouldn't stay in place. The disc height was set at 2cm. Routine change in 3-5 months is recommended. Tube Type: Gastrostomy, nenana. Tube Connection: ENFit. Tube Size: 18 Vietnamese. Low Profile: No. Disc Height: 2 cm. [...] and fellowswere discussed. IMPRESSION: Placement of 18 Vietnamese percutaneous gastrostomy tube. Nothing by mouth ortube for 2 hours (strict). Then use of mouth or tube for water,medications, and/or tube feeds per Nutrition note/order. Exchange tube in3-5 months. Contact the [facility] clinic at [phone] to schedule the tubeexchange. EP us Tariq FOSTERG IR PROCEDURES Final R esult * CBC [...] M.D. LAB BLOOD ADD-ON Final Re sult [facility] [address] [place] [address], [facility] STMA [facility] [address] [place] [address] DHPM [facility] [address] [place] [address] * (ABNORMAL) Basic Metabolic Panel (08/16/2025 6:39 [...] M.D. LAB BLOOD ADD-ON Final Re sult [facility] [address] [place] [address], [facility] [address] [place] [address] * IR Gastrostomy Tube Exchange (08/15/2025 12:34 PM CDT) Anatomical Region Laterality Modality Abdomen, Vascular Interventi onal RST LOS, Vascular Interventional ARZ LOS, Vascular Interventional FLA LOS N/A X-Ray Angiography Impressions 08/15/2025 1:53 PM CDT Exchange of an 18 Vietnamese percutaneous gastrostomy tube. The tube is ready for use. Exchange tube in 3-5 months. Contact the [facility] at [phone] to schedule the tube exchange. NR Narrative 08/15/2025 1:53 PM CDT EXAM: IR GASTROSTOMY TUBE EXCHANGE CLINICAL HISTORY: Routine gastrostomy tube exchange Encounter Reason: Routine. TECHNIQUE: The patient was placed supine on the fluoroscopy table. The abdomen and gastrostomy tube were prepared and draped in sterile fashion. Collator image demonstrates a percutaneous gastrostomy tube. Contrast injection through the tube demonstrated satisfactory position in the stomach. The tube was exchanged for a new gastrostomy tube with dilute contrast in the balloon (specifications below). Final contrast injection through the tube confirmed satisfactory function and position in the stomach. No immediate complication. Tube Type: Gastrostomy. Tube Connection: ENFit. Tube Size: 18 Vietnamese. Low Profile: No. Disc Height: 3 cm. [...] were prepared and draped in sterile fashion. Collator imagedemonstrates a percutaneous gastrostomy tube. Contrast injection throughthe tube demonstrated satisfactory position in the stomach. The tube wasexchanged for a new gastrostomy tube with dilute contrast in the balloon(specifications below). Final contrast injection through the tubeconfirmed satisfactory function and position in the stomach. No immediatecomplication. Tube Type: Gastrostomy. Tube Connection: ENFit. Tube Size: 18 Vietnamese. Low Profile: No. Disc Height: 3 cm. [...] fellowswere discussed. IMPRESSION: Exchange of an 18 Vietnamese percutaneous gastrostomy tube. The tube is readyfor use. Exchange tube in 3-5 months. Contact the [facility] [phone] to schedule the tube exchange. 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 Partially-calcified plaque [...] hernia. Redemonstrated severe partially-calcified arterial atheromatous diseasecausing hnhy-tc-kgfsorpm narrowing of the infrarenal abdominal aorta and gxklsapy-gj-wacttpgkuienntt of the iliofemoral arteries. Partially-calcified plaque causes [...] * Lipid Panel (02/10/2023 6:59 PM CDT) Pathologist [facility] Triglycerides 113 mg/dL 02/10/2023 7:59 PM CDT [...] 6:59 PM CDT 02/10/2023 7:31 PM CDT Eros Conrad M.D. LAB BLOOD ADD-ON Final Resul t [facility] [address] [place] [address], [facility] DTL [facility] [address] [place] [address] * CT Chest with IV Contrast (02/10/2023 [...] Garrison Thomas M.D. LAB URINE ORDERABLES Hilda velarde Result [facility] [address] [place] [id number], [place] CNFL [facility] in [address] [address] * COLONOSCOPY (04/23/2021 8:06 AM CDT) Anatomical Region Laterality Modality Other Narrative Procedure Note Derik Trujillo M.D. - 04/23/2021 8:06 AM CDT [facility] Patient Name: Ranulfo Carrera Procedure Date: 04/23/2021 8:06 AM Date of : 1960 Age: 61 Gender: Male Procedure: Colonoscopy Providers: Zach Larson (Ordering Provider) Referring Provider: Zach Cartagena Pre-op [...] bowel preparation was evaluated using the BBPS ([place] BowelPreparation Scale) with scores of: Right Colon [...] Most Recently Relevant to Health Maintenance Insurance [employer] MEDICARE [place]ICA[place] Advance Directives For more information, please contact: [phone] Documents on File Type Date Recorded Patient Market Research Senior Project Manager Expl anation Advance Directives 08/16/2025 1:29 PM [...] Due to: Not medically appropriate Care Teams Rubberizing Mechanic Relationship Specialty Start Date End Date None Reported, Pcp PCP - General Family Medicine 04/08/25
--- OUTSIDE RECORDS SUMMARY | 2025-09-30 03:53 | XMS_ITS | Encounter Summary ---
Author Organization [facility] Address [address] [place] [id number] Care Team Providers Care Assistant Counsel Name Role Phone None Reported, Pcp Primary Care Provider Unavail able Encounter Details Date Type Department Care Team (Late st Contact Info) Description 07/30/2025 Clinical Communication Division of General Internal Medicine in [place], [place] [address] [place] [phone] Tamiko Malik, JALEN, C.N.P., D.N.P. [address] [place] [phone] Social History Tobacco Use Types Packs/Day Years [...] place to sleep or slept in a residential (including now)? No 01/22/2023 Education Answer Date Recorded What is the highest level of school you have completed or the highest degree you have received? 12th grade 02/28/2020 Sex and Gender Information Value Date Recorded Sex Assigned at Male 09/16/2021 7:21 PM MICA MACHINE OPERATOR Legal Sex Male 10:26 AM MICA MACHINE OPERATOR Gender Identity Male 12/17/2020 7:55 PM MICA MACHINE OPERATOR Sexual Orientation Straight 12/17/2020 7: 55 PM MICA MACHINE OPERATOR documented as of this encounter Plan of Treatment Not on file documented as of this encounter Visit Diagnoses Not on filedocumented in this encounter Care Teams Assistant Counsel Relationship Specialty Start Date End Date None Reported, Pcp PCP - General Family Medicine 04/08/25 documented as of this encounter
--- NOTE | 2025-09-30 03:58 | ED_ITS ---
HPI - General Adult General Date Seen: 09/30/25 Chief complaint: Shortness of Breath/Dyspnea Stated complaint: possible aspiration Time Seen by Provider: 09/30/25 03:58 History of Present Illness HPI narrative: 65-year-old gentleman brought to the ER today by EMS from his care facility at [facility]. Report from EMS is that he has had a previous stroke with some disabilities including aphasia. EMS does not know if he is in a memory care unit or not. EMS reports he has a pulse form that indicates that he is DNR/DNI but would want selective treatments including IVs, medications, or even BiPAP. He apparently has a [id number]. EMS providers are not sure if his power of real estate associate attorney has been contacted yet. They report that he gets G-tube feeds at night because of significant aspiration risk. He is apparently supposed to sit up for his G- tube feeds. He was apparently getting his tube the tonight when he seemed to reflux and then possibly aspirated. He has been short of breath and coughing. He was apparently hypoxic per [facility] staff so they put him on nasal cannula. He is not normally on nasal cannula. As far as we know, he was well prior to this incident. No report of recent cough, fever, or illness. EMS reports that he seemed to be breathing relatively well when they picked him up but they did keep him on nasal cannula. In route he did began did have some more trouble with reflux where he was spitting up mucousy phlegm and coughing/choking. Patient is not able to answer any questions. He is not combative but it is unclear if he is really able to cooperate with exam. Med list includes lansoprazole, her ago in which are apparently for reflux. He is also on Eliquis for (primary thrombophilia). Is also on lisinopril, atorvastatin, gabapentin, other p.r.n. meds. Per medical record... He was here in the ER 1 month ago on 08/26/2025. He was having trouble breathing and was fever with a temper of 101. Has a history of aspiration pneumonia. Oxygen saturation was 91%. He did have a productive cough at the ti me of that visit. Vital signs showed a temperature of 100.4?, pulse of 104, blood pressure 153/89, and oxygen sat ranging 91-93 on nasal cannula. In the ER he had a chest x-ray that did not show any acute infiltrates. He had a normal venous blood gas. Normal lactic acid. WBC was elevated at 15.6 with 81% neutrophils. CRP was 3.9. Troponin and BNP were normal. COVID/influenza/RSV PCR was negative. Abdomen/pelvis CT showed no obvious abnormality. Left lower lobe atelectasis. G tube appropriately positioned. Per that note, family confirm that he is DNR but they would want a trial of i ntubation if needed for refractory hypoxia. He was admitted. In the hospital he did have a suspicious urinalysis suggesting possible UTI. Treated with Unasyn and then Rocephin and doxycycline. Urine culture grew pansensitive E coli. Discharged on oral Cipro for 5 more days. Chest imaging was negative for any obvious infiltrate or pneumonia or pneumonitis. Additional history per [facility] staff... He reports he has had a cough for a couple of days low-grade fever. He may have aspirated tonight. Related Data Home Medications ?Medication ?Instructions ?Recorded ?Confirmed acetaminophen 500 mg tablet 1,000 mg feeding tube BID 11/08/24 08/26/25 apixaban 2.5 mg tablet 2.5 mg feeding tube BID 01/2808/26/25 aspirin 81 mg chewable tablet 1 tab feeding tube DAILY 11/08/24 08/26/25 atorvastatin 80 mg tablet 80 mg feeding tube HS 08/26/25 carbamide peroxide 6.5 % ear drops 3 drp otic (ear) .T UES@21 08/26/25 08/26/25 (Debrox) escitalopram oxalate 10 mg tablet 10 mg feeding tube D AILY 08/26/25 08/26/25 gabapentin 300 mg capsule 300 mg feeding tube HS 08/2608/26/25 lansoprazole 30 mg oral 30 mg PO BID 08/26/25 suspension,delayed release lisinopril 10 mg tablet 10 mg feeding tube DAILY 08/26/25 loratadine 5 mg/5 mL oral solution 10 mg feeding tube DAILY 08/26/25 08/26/25 melatonin 3 mg tablet 6 mg feeding tube HS 5 08/26/25 metoclopramide HCl 10 mg tablet 10 mg feeding tube TID 08/26/25 08/26/25 sennosides 8.6 mg tablet (Natural 17.2 mg feeding tube BID 08/26/25 08/26/25 Senna Laxative) simethicone 80 mg chewable tablet 80 mg feeding tube Q ID 08/26/25 08/26/25 (Gas Relief 80 (simethicone)) Previous Rx's ?Medication ?Instructions ?Recorded ciprofloxacin HCl 500 mg tablet 500 mg feeding tube BI D #6 tabs 08/28/25 (Cipro) Allergies Allergy/AdvReac Type Severity Reaction Status Date / Time No Known Drug Allergies Allergy Verified 11/08/24 11:10 [facility] Medical History (Updated 09/30/25 @ 07:48 by Billy Lopez MD) History of CVA (cerebrovascular accident) ?Z86.73 - Personal history of transient ischemic attack (TIA), and cerebral infarction without residual deficits (ICD-10) POLST (Physician Orders for Life-Sustaining Treatment) ?Z78.9 - Other specified health status (ICD-10) Chronic ischemic left MCA stroke ?I69.30 - Unspecified sequelae of cerebral infarction (ICD-10) History of gastrostomy tube placement Tobacco use ?Z72.0 - Tobacco use (ICD-10) Hypertension ?I10 - Essential (primary) hypertension (ICD-10) Hyperlipidemia ?E78.5 - Hyperlipidemia, unspecified (ICD-10) Hemiplegia affecting left nondominant side ?G81.94 - Hemiplegia, unspecified affecting left nondominant side (ICD-10) Feeding by G-tube ?Z93.1 - Gastrostomy status (ICD-10) Pulmonary embolism ?I26.99 - Other pulmonary embolism without acute cor pulmonale (ICD-10) Diabetes mellitus ?E11.9 - Type 2 diabetes mellitus without complications (ICD-10) Cataract ?H26.9 - Unspecified cataract (ICD-10) History of right MCA stroke ?Z86.73 - Personal history of transient ischemic attack (TIA), and cerebral infarction without residual deficits (ICD-10) Surgical History H/O vitrectomy ?Z98.890 - Other specified postprocedural states (ICD-10) H/O cataract extraction ?Z98.49 - Cataract extraction status, unspecified eye (ICD-10) Social History What is your current living situation?: I presently have a place to live Problems where you live: no known problems In the past 12 months, utilities in danger of being shut off: no In past 12 months, lack of transportation kept you from medical appts, meetings, work, or getting things needed for daily living: no In the past 12 mos, have been you worried that your food would run out before you had money to buy more?: never true In the past 12 mos, the food you bought just didn't last and you didn't have money to buy more?: never true Highest level of school completed/degree received: high school graduate Non-prescribed substance use details: chano Caffeine: No How often does anyone, including family, friends and others, physically hurt you : never How often does anyone, including family, friends and others, insult or talk down to you: never How often does anyone, including family, friends and others, threaten you with harm: never How often does anyone, including family, friends and others, scream or curse at you: never service: No Exam Narrative: Exam Narrative: Constitutional: Appears well-developed and well-nourished. Alert. He seems mildly anxious, but not really agitated. Not violent. Unable to answer questions. Breathing rapidly about 34 breaths per minute. He does arrive by EMS with copious oral secretions and we suction these out with suction at the bedside. HENT: Head: Atraumatic. Nose: Nose normal. Mouth/Throat: Oral mucosa is clear and moist. no trismus. Unable to visualize his pharynx. If she is not able to cooperate that well. Eyes: Conjunctivae normal. EOM normal. Pupils equal, round, and reactive to light. No scleral icterus. Neck: Normal range of motion. Neck supple. No tracheal deviation present. Cardiovascular: Normal rate, regular rhythm. No gallop. No friction rub. No murmur heard. Symmetric radial artery pulses Pulmonary/Chest: He is tachypneic, but not grunting. Wrist hurry rate 34-36. No cyanosis or mottling. No stridor. No respiratory distress. No wheezes. Right basilar rales and rhonchi. Abdominal: Soft. Bowel sounds normal. No distension. No mass. No tenderness. No rebound. No guarding. G-tube site looks good. There is tube feeds in his G- tube. Musculoskeletal: RUE: Normal range of motion. No tenderness. No deformity LUE: Normal range of motion. No tenderness. No deformity RLE: Normal range of motion. No edema. No tenderness. No deformity LLE: Normal range of motion. No edema. No tenderness. No deformity Lymph: No cervical adenopathy. Neurological: Alert and oriented to person, place, and time. Normal strength. CN II-VII intact. No sensory deficit. GCS eye subscore is 4. GCS verbal subscore is 5. GCS motor subscore is 6. Normal coordination Skin: Skin is warm and dry. No rash noted. No pallor. Normal capillary refill. Psychiatric: Normal mood. Normal affect. Const: Vital Signs, click to edit/add: Vital Signs - 24 hr 09/30/25 04:15 09/30/25 04:42 09/30/25 04:53 Temperature 101.7 F H Pulse Rate 106 H Pulse Rate [Pulse Oximeter] 101 H Respiratory Rate 32 H 28 H Blood Pressure 143/80 H Blood Pressure [Le ft Upper Arm] 146/59 H Pulse Oximetry 94 93 93 Oxygen Delivery Me thod Room Air 09/30/25 05:02 09/30/25 05:22 09/30/25 05:42 Temperature Pulse Rate 102 H 93 103 H Pulse Rate [Pulse Oximeter] Respiratory Rate 26 H Blood Pressure 147/83 H 146/85 H 135/76 Blood Pressure [Le ft Upper Arm] Pulse Oximetry 93 95 96 Oxygen Delivery Me thod 09/30/25 06:02 09/30/25 06:22 09/30/25 06:26 Temperature 101.6 F H Pulse Rate 108 H 106 H Pulse Rate [Pulse Oximeter] Respiratory Rate Blood Pressure 140/85 H 136/71 Blood Pressure [Le ft Upper Arm] Pulse Oximetry 94 93 Oxygen Delivery Me thod 09/30/25 06:42 09/30/25 07:02 09/30/25 07:03 Temperature Pulse Rate 100 106 H 107 H Pulse Rate [Pulse Oximeter] Respiratory Rate 24 Blood Pressure 147/89 H 155/70 H Blood Pressure [Le ft Upper Arm] Pulse Oximetry 94 93 92 Oxygen Delivery Me thod 09/30/25 07:15 09/30/25 07:30 09/30/25 07:45 Temperature Pulse Rate 96 100 91 Pulse Rate [Pulse Oximeter] Respiratory Rate 28 H Blood Pressure Blood Pressure [Le ft Upper Arm] Pulse Oximetry 92 93 94 Oxygen Delivery Me thod 09/30/25 08:00 09/30/25 08:05 09/30/25 08:06 Temperature 100.8 F H Pulse Rate 100 99 107 H Pulse Rate [Pulse Oximeter] Respiratory Rate 28 H Blood Pressure Blood Pressure [Le ft Upper Arm] Pulse Oximetry 93 93 93 Oxygen Delivery Me thod 09/30/25 08:15 09/30/25 08:22 Temperature Pulse Rate 102 H 100 Pulse Rate [Pulse Oximeter] Respiratory Rate 28 H Blood Pressure 129/69 Blood Pressure [Le ft Upper Arm] Pulse Oximetry 92 91 Oxygen Delivery Me thod Course Course ED Course: Recheck-frequent cough largely nonproductive of sputum. Occasionally he does cough some sputum up into his throat and then has trouble spitting it out of his mouth. Respiratory rate is down to the 20s. Respiratory rate 26 by my count. Heart rate still about 100, sinus on the monitor. Recheck-sats still and then low 90s on room air but still tachypneic with history rate 26-28. Overall he does have a frequent cough that is largely nonproductive but occasionally does produce some clear sputum that he has d ifficulty spitting out. Despite that he does have a persistent tachypnea. Reevaluation(s) Reevaluation #1: Recheck 7:00 a.m.-seems to be coughing less frequently than when he arrived. Still tachypneic with respiratory rate 26-28. Blood pressure stable. Mental status still seems unchanged. He is not combative or agitated. Protecting his airway Vital Signs Vital signs: Initial Vital Signs Temperature 101.7 F H 09/30/25 04:15 Temperature Source Temporal Artery Scan 09/30/25 04:15 Pulse Rate 101 H 09/30/25 04:15 Respiratory Rate 32 H 09/30/25 04:15 Blood Pressure 146/59 H 09/30/25 04:15 Blood Pressure Mean 88 09/30/25 04:15 Blood Pressure Position Sitting 09/30/25 04:15 Pulse Oximetry 94 09/30/25 04:15 Oxygen Delivery Method Room Air 09/30/25 04:15 Vital Signs Temperature 101.7 F H 09/30/25 04:15 Pulse Rate 101 H 09/30/25 04:15 Respiratory Rate 32 H 09/30/25 04:15 Blood Pressure 146/59 H 09/30/25 04:15 Pulse Oximetry 94 09/30/25 04:15 Oxygen Delivery Method Room Air 09/30/25 04:15 Temperature 100.8 F H 09/30/25 08:05 Pulse Rate 100 09/30/25 08:22 Respiratory Rate 28 H 09/30/25 08:22 Blood Pressure 129/69 09/30/25 08:22 Pulse Oximetry 91 09/30/25 08:22 Oxygen Delivery Method Room Air 09/30/25 04:15 Medications Administered Medications: Discontinued Medications Generic Name Dose Route Start Last Admin Trade Name Freq PRN Reason Stop Dose Admin Albuterol/Ipratropium 1 neb 09/30/25 07:45 09/30/25 07:58 Iprat-Albut 0.5-2.5 Mg/3 Ml Neb IH 09/30/25 07:46 1 neb ONCE ONE Administration Sodium Chloride 1,000 mls @ 1,000 mls/hr 09/30/25 05:15 09/30/25 06:57 0.9 % Sodium Chloride 1000 Ml IV 09/30/25 06:14 Infused .Q1H LATOYA Infusion Acetaminophen 1,000 mg in 100 mls @ 400 mls/hr 09/30/25 06:38 09/30/25 07:15 Acetaminophen Inj IVPB 09/30/25 06:52 Infused ONCE ONE Infusion Sodium Chloride 1,000 mls @ 1,000 mls/hr 09/30/25 07:00 09/30/25 07:50 0.9 % Sodium Chloride 1000 Ml IV 09/30/25 07:59 Infused .Q1H LATOYA Infusion Piperacillin Sod/Tazobactam 100 mls @ 200 mls/hr 09/30/25 06:47 09/30/25 07:50 Sod 4.5 gm/ Sodium Chloride IVPB 09/30/25 06:48 Infused ONCE ONE Infusion Doxycycline Hyclate 100 mg/ 100 mls @ 100 mls/hr 09/30/25 06:47 09/30/25 07:51 Sodium Chloride IVPB 11/25/25 06:48 100 mls/hr ONCE ONE Administration Medical Decision Making MDM Narrative Medical decision making narrative: 65-year-old gentleman with a complex presentation. He has a history of aphasia apparently from previous stroke and so he is not able to provide any history. He is not combative but has difficulty really cooperating with good exam. He has a history of aspiration and currently has a G-tube for tube feedings. He was brought in by EMS with concerned that he apparently reflux some tube feeds out of his stomach and aspirated tonight. However additional history by phone from his care center is that he may have had a cough for 2 or 3 days prior to the event tonight. Whether not he has had an antecedent cough he did have an aspiration event tonight. On my exam he is tachypneic but fortunately not hypoxic. He does have rales in the right base. Chest x-ray is negative for any of ago obvious infiltrate but based on time course of aspiration tonight, I am concerned that he probably did aspirate and has yet to develop the radiograph signs of aspiration pneumonia or aspiration pneumonitis. COVID/influenza/RSV PCR is negative. He does have a fever of 101.7. Along with this he has a tachycardia with heart rate of 101. This does meet 2/4 sirs criteria and would qualify him for sepsis. However he has normal blood pressure. Venous lactic is elevated at 3.9. This does not qualify for septic shock requiring 30 mL/kg IV fluid bolus. Although he has frequent cough he is not hypoxic. Other laboratory workup shows normal kidney function and electrolytes. No evidence for other acute end-organ damage. Given height of fever, persistence of cough, SIRS criteria I did start him on IV antibiotics for aspiration pneumonia with Zosyn and doxycycline. I do not see any previous MRSA for him so will hold off on vancomycin for now. We did consider other sources of fever. I do not see any evidence for skin infection on clinical exam. No evidence for septic arthritis. Urinalysis is essentially negative and no clear signs for UTI during this ER visit. Blood cultures are pending. Venous blood gas shows pH of 7.33 with a mildly elevated pCO2. This picture does not appear to represent a metabolic acidosis with respiratory compensation. Who is not wheezing on clinical exam. However, We did try and empiric nebulizer[] At this point he is not hypoxic but given persistent kidney and persisting cough, I do not think it is safe to send him back to his care center at [facility]. I did attempt to contact his power of real estate associate attorney to discuss his presentation and disposition to make sure we respect their goals of care. At about 730 or 8:00 a.m. his daughter called me back. She confirm that it would be appropriate for him to be admitted for monitoring and IV antibiotics. Discussed with our hospitalist, Dr. Moon who came to the ER to evaluate the patient and agrees to admit him for observation. Lab Data Labs: Lab Results 09/30/25 09/30/25 09/30/25 Range/Units 04:00 04:05 04:50 WBC 8.78 (4.50-11.00) K/uL RBC 4.79 (4.30-5.90) m/uL Hgb 15.1 (13.5-17.5) gm/dL Hct 44.7 (37.0-53.0) % MCV 93 (80-100) fL MCH 32 (26-34) pg MCHC 34 (32-36) gm/dL RDW Coeff of Namita 11.9 (11.5-15.5) % Plt Count 216 (140-440) K/uL Neut % (Auto) 86.4 H (42.0-72.0) % Lymph % (Auto) 6.0 L (20-44) % [place] % (Auto) 7.3 (0.0-11.0) % Eos % (Auto) 0.1 (0.0-7.0) % Baso % (Auto) 0.1 (0.0-3.0) % Neut # (Auto) 7.60 H (1.7-7.0) K/uL Lymph # (Auto) 0.50 L (0.90-2.90) K/uL [place] # (Auto) 0.60 (0.00-0.90) K/UL Eos # (Auto) 0.01 (0.00-0.50) K/uL Baso # (Auto) 0.01 (0.00-0.30) K/uL Abs Immat Gran (auto) 0.01 (0.00-0.30) K/uL Imm/Tot Granulo (auto) 0.1 % VBG pH 7.330 (7.32-7.43) VBG pCO2 51 H (40-50) mmHG VBG pO2 < 30.1 (25-47) mmHG VBG HCO3 27 (21-28) mmol/L Sodium 136 (135-149) mmol/L Potassium 4.1 (3.6-5.1) mmol/L Chloride 102 (96-114) mmol/L Carbon Dioxide 25 (20-32) mmol/L Anion Gap 9 (7-15) mEq/L BUN 18 (7-30) mg/dL Creatinine 0.6 (0.5-1.5) mg/dL Estimated GFR 106 ml/min Glucose 105 (60-115) mg/dL Lactate 3.9 H (0.5-1.9) mmol/L Calcium 9.4 (8.4-10.6) mg/dL Urine Color Yellow (Yellow) Urine Appearance Slightly Cloudy A (Clear) Urine pH 8.0 (5.0-8.5) Ur Specific [place] 1.015 (1.000-1.030) Urine Protein 1+ A (Negative) Urine Glucose (UA) Negative (Negative) Urine Ketones Negative (Negative) Urine Blood Negative (Negative) Urine Nitrite Negative (Negative) Urine Bilirubin Negative (Negative) Urine Urobilinogen 0.2 (0.2-1.0) Ur Leukocyte Esterase Negative (Negative) Urine RBC 0-2 (0-2) Urine WBC 0-2 (0-5) Ur Squamous Epith Cells Few (None-Few) Urine Bacteria Few A (None) SARS-CoV-2 (PCR) Negative SARS-CoV-2 (Negative) Influenza Type A (PCR) Negative PCR FLU A (Negative) Influenza Type B (PCR) Negative PCR FLU B (Negative) RSV (PCR) Negative PCR RSV (Negative) 09/30/25 Range/Units 07:50 WBC (4.50-11.00) K/uL RBC (4.30-5.90) m/uL Hgb (13.5-17.5) gm/dL Hct (37.0-53.0) % MCV (80-100) fL MCH (26-34) pg MCHC (32-36) gm/dL RDW Coeff of Namita (11.5-15.5) % Plt Count (140-440) K/uL Neut % (Auto) (42.0-72.0) % Lymph % (Auto) (20-44) % [place] % (Auto) (0.0-11.0) % Eos % (Auto) (0.0-7.0) % Baso % (Auto) (0.0-3.0) % Neut # (Auto) (1.7-7.0) K/uL Lymph # (Auto) (0.90-2.90) K/uL [place] # (Auto) (0.00-0.90) K/UL Eos # (Auto) (0.00-0.50) K/uL Baso # (Auto) (0.00-0.30) K/uL Abs Immat Gran (auto) (0.00-0.30) K/uL Imm/Tot Granulo (auto) % VBG pH (7.32-7.43) VBG pCO2 (40-50) mmHG VBG pO2 (25-47) mmHG VBG HCO3 (21-28) mmol/L Sodium (135-149) mmol/L Potassium (3.6-5.1) mmol/L Chloride (96-114) mmol/L Carbon Dioxide (20-32) mmol/L Anion Gap (7-15) mEq/L BUN (7-30) mg/dL Creatinine (0.5-1.5) mg/dL Estimated GFR ml/min Glucose (60-115) mg/dL Lactate 0.9 (0.5-1.9) mmol/L Calcium (8.4-10.6) mg/dL Urine Color (Yellow) Urine Appearance (Clear) Urine pH (5.0-8.5) Ur Specific [place] (1.000-1.030) Urine Protein (Negative) Urine Glucose (UA) (Negative) Urine Ketones (Negative) Urine Blood (Negative) Urine Nitrite (Negative) Urine Bilirubin (Negative) Urine Urobilinogen (0.2-1.0) Ur Leukocyte Esterase (Negative) Urine RBC (0-2) Urine WBC (0-5) Ur Squamous Epith Cells (None-Few) Urine Bacteria (None) SARS-CoV-2 (PCR) (Negative) Influenza Type A (PCR) (Negative) Influenza Type B (PCR) (Negative) RSV (PCR) (Negative) Imaging Data Chest x-ray: Attestation: I have reviewed the pertinent imaging results. Radiologist's impression: IMPRESSION: No acute findings. ECG Data Attestation: I personally reviewed and interpreted this ECG as follows: Interpretation: Sinus tachycardia with occasional premature ventricular complexes Rate 104 MI interval 134. No delta waves. Normal QRS axis. Right bundle-branch block. No ST segment elevation or depression. Nonspecific T-wave changes. QT 358, QTC 470 Discharge Plan Discharge Clinical Impression: Aspiration into airway, Fever, Cough Prescriptions: No Action acetaminophen 500 mg tablet 1,000 mg feeding tube BID aspirin 81 mg tablet,chewable 1 tab feeding tube DAILY apixaban 2.5 mg tablet 2.5 mg feeding tube BID atorvastatin 80 mg tablet 80 mg feeding tube HS metoclopramide HCl 10 mg tablet 10 mg feeding tube TID sennosides [Natural Senna Laxative] 8.6 mg tablet 17.2 mg feeding tube BID gabapentin 300 mg capsule 300 mg feeding tube HS lansoprazole 30 mg susp,delayed release for recon 30 mg PO BID melatonin 3 mg tablet 6 mg feeding tube HS simethicone [Gas Relief 80 (simethicone)] 80 mg tablet,chewable 80 mg feeding tube QID escitalopram oxalate 10 mg tablet 10 mg feeding tube DAILY loratadine 5 mg/5 mL solution 10 mg feeding tube DAILY lisinopril 10 mg tablet 10 mg feeding tube DAILY Debrox 6.5 % drops 3 drp otic (ear) .TUES@21 ciprofloxacin HCl [Cipro] 500 mg tablet 500 mg feeding tube BID Qty: 6 0RF Follow Up/Referrals: Dean Burris MD [Primary Care Provider, Family Practice] Procedures ABG Interpretation ABG Results: 09/30/25 04:05 VBG pH 7.330 VBG pCO2 51 H VBG pO2 < 30.1 VBG HCO3 27
--- NOTE | 2025-09-30 04:05 | CRLHL7_ITS ---
For Patients: As a result of the Cures Act, medical imaging exams and procedure reports are released immediately into your electronic medical record. You may view this report before your referring provider. If you have questions, please contact your health care provider. INDICATION: Possible aspiration TECHNIQUE: Chest 1 views. COMPARISON: CT chest 08/26/2025 FINDINGS: Cardiovasculature and mediastinum: Heart size is stable. Unremarkable mediastinum. Lungs and pleural spaces: No focal consolidation. Hamartoma/calcified granuloma in the left lower lobe. No pneumothorax or pleural effusion. Bones and soft tissues: No significant findings. IMPRESSION: No acute findings. Dictated by Sonya Goode MD @ 09/30/2025 4:47:21 AM (Electronically Signed)
[2025-09-30 04:15] LABS: HCO3 VBG 27 mmol/L (21-28); Lactate* 3.9 mmol/L (0.5-1.9); PCO2 VBG 51 mmHG (40-50); PO2 VBG < 30.1 mmHG (25-47); pH VBG 7.330 (7.32-7.43)
[2025-09-30 04:18] LABS: Hematocrit* 44.7 % (37.0-53.0); Hemoglobin* 15.1 gm/dL (13.5-17.5); Immature Granulocytes Abs Auto 0.01 K/uL (0.00-0.30); Immature Granulocytes Pct Auto 0.1 %; Mean Corpuscular HGB Conc 34 gm/dL (32-36); Mean Corpuscular Hemoglobin 32 pg (26-34); Mean Corpuscular Volume 93 fL (80-100); RDW Coefficient of Variation % 11.9 % (11.5-15.5); Red Blood Count* 4.79 m/uL (4.30-5.90); White Blood Count* 8.78 K/uL (4.50-11.00)
[2025-09-30 04:19] LABS: Lymphocytes Absolute Auto 0.50 K/uL (0.90-2.90); Slide Review Reflex No
[2025-09-30 04:31] LABS: Chloride* 102 mmol/L (96-114); Potassium* 4.1 mmol/L (3.6-5.1); Sodium* 136 mmol/L (135-149)
[2025-09-30 04:34] LABS: Anion Gap 9 mEq/L (7-15); Blood Urea Nitrogen* 18 mg/dL (7-30); Calcium* 9.4 mg/dL (8.4-10.6); Carbon Dioxide* 25 mmol/L (20-32); Creatinine* 0.6 mg/dL (0.5-1.5); Estimated Glomerular Filt Rate 106 ml/min; Glucose* 105 mg/dL (60-115)
[2025-09-30 04:55] LABS: PCR FLU A Negative PCR FLU A (Negative); PCR FLU B Negative PCR FLU B (Negative); PCR RSV Negative PCR RSV (Negative); SARS PCR* Negative SARS-CoV-2 (Negative)
[2025-09-30 04:58] LABS: Appearance Urine Slightly Cloudy (Clear)
[2025-09-30] MEDS: ACETAMINOPHEN INJ 1,000 MG/100 ML VIAL 400 MG IVPB ×3 (06:56→21:57)
[2025-09-30] MEDS: PIPERACILLIN/TAZOBACTAM 4.5 GM in 0.9 % SODIUM CHLORIDE Mini-bag 100 ML IVPB (07:15)
[2025-09-30] MEDS: DOXYCYCLINE HYCLATE 100 MG in 0.9 % SODIUM CHLORIDE Mini-bag 100 ML IVPB (07:51)
[2025-09-30 07:53] LABS: Lactate* 0.9 mmol/L (0.5-1.9)
[2025-09-30] MEDS: IPRAT-ALBUT 0.5-2.5 MG/3 ML NEB 1 NEB IH (07:58)
--- NOTE | 2025-09-30 08:19 | PM.IMHP1 ---
Assessment and Plan Assessment and plan (1) Severe sepsis: Problem comment: -met criteria given his fever, heart rate, respiratory rate, witnessed aspiration event, elevated lactate. -query developing pneumonia (CXR lag vs aspiration pneumonitis) -rec'd IV zosyn and doxy -will continue, at this time, oral augmentin and RT consult -admitted for further cares (neb, suctioning) - pending Status: Acute (2) Aspiration into airway: Problem comment: -will consult nutrition for further interventions possible to decrease likelihood of aspiration Status: Acute (3) Hemiplegia affecting left nondominant side: Problem comment: -dense deficits; lives in SNF. Moderate Assist of 1. nonverbal. Status: Chronic (4) History of CVA (cerebrovascular accident): Problem comment: 01/2020 - residual effects on the left side, but discharged home; continued to work and drive 02/2023 - devastating right carotid artery stroke, left side hemiparesis, aphasia, no longer swallows - admitted to LTC in April 2023 with gastrostomy tube, 29/05 care. Status: Acute (5) History of gastrostomy tube placement: Status: Acute (6) Feeding by G-tube: Status: Acute (7) Pulmonary embolism: Problem comment: during hospitalization for CVA in 2022 Status: Acute (8) Anticoagulant long-term use: Status: Acute Hospitalist- H&P: HPI History of Present Illness Date Seen: 09/30/25 Chief complaint: possible aspiration Narrative: ADMISSION HISTORY AND PHYSICAL - HOSPITALIST Chief Complaint: aspiration event HPI: Ranulfo is well known to the hospitalist service. I admitted him last month from 08/26 to 08/28 for an aspiration pneumonitis. It would appear the same scenario has repeated just a month later. Ranulfo is a 65-year-old with a history of devastating strokes and lives in long-term care. Is fed exclusively through his G-tube. In the last couple of days he has had a mild cough. In the hours prior to admission, overnight, he had a paroxysmal coughing event. There was obvious aspiration and or vomiting. This was during his G-tube night feeds. He was initially hypoxic at the group home facility and O2 was applied by nasal cannula. He is typically not on oxygen. He was noted to have a fever and be tachypneic and mildly agitated. He was brought by EMS to our ER for further evaluation. Here, he was weaned from oxygen but noted to have an elevated lactate, continued fever, tachypnea and tachycardia c/w severe sepsis. Hospitalist team was consulted for admission. ER COURSE: fluid resuscitation and suctioning; labs, weaned off oxygen, cxr, given IV zosyn and oral doxy. CODE STATUS: Modified resuscitation PCP: Dr. Burris; [facility] EMERGENCY CONTACT PLAN: - Anali I've updated the PFSH, medications and allergies in the Expanse tabs. INVESTIGATIONS: LABS/MICRO/ECG/IMAGING T-max 101.7? in the emergency room. Upon arrival to the floor after being given intravenous Tylenol his temp is down to 100.8 ? F. He has been hemodynamically stable, 129/69, 155/70. He has been tachycardic and tachypneic. His heart rate has ranged 100 up to 107. He remains tachypneic in the 20s Pulse ox 91-94% on room air CBC reflects a normal white blood cell count, normal hemoglobin, normal platelets. PH is normal. PCO2 is only very mildly elevated at 51. Lactate initially was 3.9 and is down to 0.9 with resuscitation. His electrolytes are normal. His renal function is normal. Urine is unremarkable. Respiratory swabs negative. One-view chest x-ray - no acute findings. Two blood cultures are pending. Urine culture is pending. In his previous admission he was MRSA negative. And grew a pansensitive E coli in his urine. His blood cultures last month were negative as well. EKG is reviewed. He is in sinus. He has a known right bundle branch block. This morning he is also throwing PVCs and is mildly tachycardic. There was some question inferior lead ST changes. -TROPONIN not drawn but pending now REVIEW OF SYSTEMS: 12-point ROS completed with patient and negative unless otherwise stated in HPI or below. PHYSICAL EXAM: CONSTITUTIONAL: aphasic; grunts GENERAL: Well nourished. mild resp distress: tachypnea; VITAL SIGNS: see record. HEENT: Sclerae are anicteric. No petechiae. PULMONARY: upper airway congestion. no wheezes, shallow breaths that are >20/min. mild resp distress. CARDIAC: rhythm is regular. There is no S3 or rub. No harsh murmurs. Extremities show trace edema with symmetrical pulses. NEURO: abnormal baseline neuro exam. SKIN: No rashes, petechiae, concerning changes PSYCHIATRIC: Euthymic. ADMIT TO MEDSURG: FLOOR CARE DVT: continue eliquis GI: PPI Time spent: Today I spent 75 minutes seeing the patient, discussing the patient with ER staff, reviewing Expanse and EPIC notes/diagnostics, discussing the care plan with our care time that includes social work, PT/OT, pharmacy, RT, group home and documenting my impressions and plan in the medical record. MEDICAL NECESSITY FOR HOSPITALIZATION Anticipated midnights in the hospital: 2 Admitting diagnosis: severe sepsis; query asp pneumonia vs asp pneumonitis Risk of morbidity and mortality: high Acuity is characterized as high and reflected in: poor neurologic baseline; gtube dependence, chronic aspirator This patient will require hospital services as outlined in the assessment and plan in order to stabilize and be safely discharged to a lower level of care. Because of the risk and acuity as described above, this patient cannot be managed at a lower level of care. LENGTH OF STAY: 2 IP ? Anticipated LOS>2 midnights due to acuity of clinical presentation requiring inpatient level of care Medical Decision Making Medical Decision Making Has patient completed a Health Care Directive: Yes [facility] Medical History (Updated 09/30/25 @ 09:38 by Laney Moon MD) History of CVA (cerebrovascular accident) ?Z86.73 - Personal history of transient ischemic attack (TIA), and cerebral infarction without residual deficits (ICD-10) POLST (Physician Orders for Life-Sustaining Treatment) ?Z78.9 - Other specified health status (ICD-10) Chronic ischemic left MCA stroke ?I69.30 - Unspecified sequelae of cerebral infarction (ICD-10) History of gastrostomy tube placement Tobacco use ?Z72.0 - Tobacco use (ICD-10) Hypertension ?I10 - Essential (primary) hypertension (ICD-10) Hyperlipidemia ?E78.5 - Hyperlipidemia, unspecified (ICD-10) Hemiplegia affecting left nondominant side ?G81.94 - Hemiplegia, unspecified affecting left nondominant side (ICD-10) Feeding by G-tube ?Z93.1 - Gastrostomy status (ICD-10) Pulmonary embolism ?I26.99 - Other pulmonary embolism without acute cor pulmonale (ICD-10) Diabetes mellitus ?E11.9 - Type 2 diabetes mellitus without complications (ICD-10) Cataract ?H26.9 - Unspecified cataract (ICD-10) History of right MCA stroke ?Z86.73 - Personal history of transient ischemic attack (TIA), and cerebral infarction without residual deficits (ICD-10) Surgical History H/O vitrectomy ?Z98.890 - Other specified postprocedural states (ICD-10) H/O cataract extraction ?Z98.49 - Cataract extraction status, unspecified eye (ICD-10) Social History What is your current living situation?: I presently have a place to live Problems where you live: unable to answer In the past 12 months, utilities in danger of being shut off: unable to answer In past 12 months, lack of transportation kept you from medical appts, meetings, work, or getting things needed for daily living: unable to answer In the past 12 mos, have been you worried that your food would run out before you had money to buy more?: unable to answer In the past 12 mos, the food you bought just didn't last and you didn't have money to buy more?: unable to answer Highest level of school completed/degree received: don't know Non-prescribed substance use details: chano Caffeine: No How often does anyone, including family, friends and others, physically hurt you: unable to answer How often does anyone, including family, friends and others, insult or talk down to you: unable to answer How often does anyone, including family, friends and others, threaten you with harm: unable to answer How often does anyone, including family, friends and others, scream or curse at you: unable to answer service: No Meds Home Medications and Allergies Home Medications ?Medication ?Instructions ?Recorded ?Confirmed ?Type acetaminophen 500 mg tablet 1,000 mg feeding tube BID 11/08/24 08/26/25 History apixaban 2.5 mg tablet 2.5 mg feeding tube BID 11/08/24 08/26/25 History aspirin 81 mg chewable tablet 1 tab feeding tube DAILY 11/08/24 08/26/25 History atorvastatin 80 mg tablet 80 mg feeding tube HS 11/08/24 08/26/25 History carbamide peroxide 6.5 % ear drops 3 drp otic (ear) .TUES@21 08/26/25 08/26/25 History (Debrox) escitalopram oxalate 10 mg tablet 10 mg feeding tube DAILY 08/26/25 08/26/25 History gabapentin 300 mg capsule 300 mg feeding tube HS 08/26/25 08/26/25 History lansoprazole 30 mg oral 30 mg PO BID 08/26/25 08/26/25 History suspension,delayed release lisinopril 10 mg tablet 10 mg feeding tube DAILY 08/26/25 08/26/25 History loratadine 5 mg/5 mL oral solution 10 mg feeding tube DAILY 08/26/25 08/26/25 History melatonin 3 mg tablet 6 mg feeding tube HS 08/26/25 08/26/25 History metoclopramide HCl 10 mg tablet 10 mg feeding tube TID 08/26/25 08/26/25 History sennosides 8.6 mg tablet (Natural 17.2 mg feeding tube BID 08/26/25 08/26/25 History Senna Laxative) simethicone 80 mg chewable tablet 80 mg feeding tube QID 08/26/25 08/26/25 History (Gas Relief 80 (simethicone)) Allergies Allergy/AdvReac Type Severity Reaction Status Date / Time No Known Drug Allergies Allergy Verified 11/08/24 11:10 Exam Const: Vital Signs, click to edit/add: Vital Signs - 24 hr 09/30/25 04:15 09/30/25 04:42 09/30/25 04:53 Temperature 101.7 F H Pulse Rate 106 H Pulse Rate [Pulse Oximeter] 101 H Respiratory Rate 32 H 28 H Blood Pressure 143/80 H Blood Pressure [Le ft Upper Arm] 146/59 H Pulse Oximetry 94 93 93 Oxygen Delivery Me thod Room Air 09/30/25 05:02 09/30/25 05:22 09/30/25 05:42 Temperature Pulse Rate 102 H 93 103 H Pulse Rate [Pulse Oximeter] Respiratory Rate 26 H Blood Pressure 147/83 H 146/85 H 135/76 Blood Pressure [Le ft Upper Arm] Pulse Oximetry 93 95 96 Oxygen Delivery Me thod 09/30/25 06:02 09/30/25 06:22 09/30/25 06:26 Temperature 101.6 F H Pulse Rate 108 H 106 H Pulse Rate [Pulse Oximeter] Respiratory Rate Blood Pressure 140/85 H 136/71 Blood Pressure [Le ft Upper Arm] Pulse Oximetry 94 93 [facility] 09/30/25 06:42 09/30/25 07:02 09/30/25 07:03 Temperature Pulse Rate 100 106 H 107 H Pulse Rate [Pulse Oximeter] Respiratory Rate 24 Blood Pressure 147/89 H 155/70 H Blood Pressure [Le ft Upper Arm] Pulse Oximetry 94 93 92 Oxygen Delivery [facility] 09/30/25 07:15 09/30/25 07:30 09/30/25 07:45 Temperature Pulse Rate 96 100 91 Pulse Rate [Pulse Oximeter] Respiratory Rate 28 H Blood Pressure Blood Pressure [Le ft Upper Arm] Pulse Oximetry 92 93 94 Oxygen Delivery [facility] 09/30/25 08:00 09/30/25 08:05 Temperature 100.8 F H Pulse Rate 100 99 Pulse Rate [Pulse Oximeter] Respiratory Rate 28 H Blood Pressure Blood Pressure [Le ft Upper Arm] Pulse Oximetry 93 93 Oxygen Delivery [facility] Hospitalist - H&P: Result Labs Labs: Short CBC 09/30/25 Range/Units 04:05 WBC 8.78 (4.50-11.00) K/uL Hgb 15.1 (13.5-17.5) gm/dL Hct 44.7 (37.0-53.0) % Plt Count 216 (140-440) K/uL BMP 09/30/25 04:05 Sodium 136 Potassium 4.1 Chloride 102 Carbon Dioxide 25 BUN 18 Creatinine 0.6 Glucose 105 Calcium 9.4 Urine 09/30/25 Range/Units 04:50 Urine Color Yellow (Yellow) Urine Appearance Slightly Cloudy A (Clear) Urine pH 8.0 (5.0-8.5) Ur Specific [place] 1.015 (1.000-1.030) Urine Protein 1+ A (Negative) Urine Glucose (UA) Negative (Negative)
--- NOTE | 2025-09-30 09:53 | PC.NURSE ---
Updated JOE Sanders from [facility] that patient was admitted. Updated patients (ex-) Sharonda that patient was admitted. She works until 5pm and then will come up.
[2025-09-30 09:55] LABS: Procalcitonin* 0.15 ng/mL (<0.50)
[2025-09-30] MEDS: SODIUM CHLORIDE 0.9 % (FLUSH) 10 ML SYRINGE 5 ML IVF ×2 (10:12→21:04)
[2025-09-30] MEDS: PANTOPRAZOLE SODIUM 40 MG INJ IVP (10:12)
[2025-09-30] MEDS: SENNOSIDES 1 TAB TABLET 2 TAB G-TUBE ×2 (10:14→21:00)
[2025-09-30] MEDS: SIMETHICONE 80 MG TAB.CHEW G-TUBE ×4 (10:14→21:00)
[2025-09-30] MEDS: ASPIRIN 81 MG TAB.CHEW G-TUBE (10:14)
[2025-09-30] MEDS: APIXABAN 5 MG TABLET 2.5 MG G-TUBE ×2 (10:14→21:00)
[2025-09-30] MEDS: ESCITALOPRAM 10 MG TABLET G-TUBE (10:14)
--- NOTE | 2025-09-30 10:24 | RESP.RT ---
PT seen upon arrival to unit. On RA, SPO2 92% BBS with scattered Rhonchi. Sx set up at bedside. Provider working with securities and real estate director for feeding recommendations. Sit pt up in chair as tolerates, or in bed, ambulate as able. Tracheostomy may be a intermediate school teacher solution for pt if he continues to have difficulty clearing secreations and possible aspiration of tube feedings.
--- NOTE | 2025-09-30 10:44 | P.NUTASMT_ITS ---
Hospital Nutrition Assessment Patient Data Patient Gender: Male Patient Age: 65 Height: 5 ft 9 in (175.26 cm) Weight: 177 lb 14.4 oz (80.86 kg) Body Mass Index: 26.2 Weight Calculations Henry Body Weight (lbs): 160.00 Henry Body Weight (kg): 72.58 Percent of Henry Body Weight: 111 Adjusted Body Weight (lbs): 164.48 Adjusted Body Weight (kg): 74.61 Basal Energy Expenditure (BEE): 1605.72 Basal Energy Expenditure (BEE) Adjusted Weight: 1522.06 Activity/Stress Factors Injury Factor/Activity Factor Value: 1.1 Total Energy Requirements Kcal requirements (current wt): 1766.292 Kcal requirements (adj wt): 1674.266 Protein Need (current wt): 1.0 Total Protein (current wt): 80.694 Protein Need (adj wt): 1.0 Total Protein (adj wt): 74.610 Fluid Need (current wt): 25 Total Fluid (current wt): 2017.352 Fluid Need (adj wt): 25 Total Fluid (adj wt): 1865.25 Nutrition Assessment Diet Order: NPO Diet Order Comment: NPO - tube feedings only Allergies: NKFA Appetite and Intake: NPO - tube feedings only Hx Appetite Changes: No Hx Weight Loss: Yes (Limited wt hx in chart - loss of 5 lbs in 30 days is NOT significant.) Hx Weight Gain: No Nausea: No Vomiting: No Diarrhea: No Hx Constipation: No Chewing Difficulty: Yes Swallowing Difficulty: Yes Pressure Ulcer: No Diagnosis/Symptom or Procedure: Severe sepsis, aspiration of airway Clinical History: Medical history includes but not limited to POLST Chronic ischemic left MCA stroke, History of gastrostomy tube placement, Hypertension, Hyperlipidemia, Hemiplegia affecting left nondominant side, CVAs, Dysphagia, Feeding by G-tube, and Diabetes mellitus type 2. Patient is non-verbal. He receives tube feedings through G-tube. Of note, he was admitted from 08/26/25 to 08/28/25 for Febrile illness with suspected aspiration. Current Living Situation: Resident at [facility]. Medications Medications: reviewed. Patient is currently receiving IV fluids - spoke to Hospitalist regarding this and these are to be discontinued once tubefeedings are resumed. Lab Results Lab Results: reviewed. Enteral Feedings Formula: Peptamen 1.5 Rate: 57 (Rate at [facility]) Rate Comment: 57 mL/hr x 22 hours Water Flushes: 90 (Regimen at [facility]) Comment: 90 mL fluid flush q3 hrs; 30 mL fluid flush before & after feedings & meds Nutrient/Fluid Totals Enteral: Total Calories: 1,875 Calories per Kilogram: 22 Total Protein: 85 Total Protein per Kilogram: 1.0 Total Fluid: 1,860 Total Fluid per Kilogram: 22 Assessment/Plan PES Statement: Inability to chew and swallow related to dysphagia as evidenced by need to G-tube feedings. Nutritional Assessment Summary: RDN with MD consult for tube feeding. Patient with history of stroke and dysphagia with need to enteral tube feedings. He is non-verbal, strictly NPO, and is a resident at [facility]. Patient's current feeding tube regimen is outlined above. Spoke to Hospitalist whom would like to trial a shortened length of feedings during the day to see if this is better tolerated and would limit risk of aspiration. RDN in agreement. No current plans to change formula at this time. Tube Feeding Regimen Will plan to trial daytime feedings starting today at 2 pm, and will run for 6 hours until 8:00 pm (total of 2 cartons). Trial Regimen: Peptamen 1.5 @ 84 mL/hr x 6 hours (2 cartons) Fluid Flushes: 120 mL q3hrs (total of 8 daily) with 30 mL flushes before and after tube feedings, and with medications. Nutrition: This regimen provides a total of 750 kcals, 34 grams protein, and 1344 mL fluids (384 mL water from formula, 960 mL from fluid flushes) If patient tolerated this regimen, we will plan to increase to 15 hours daily. RDN will update assessment with Goal rate at later date. Patient's weight history is limited, however his BMI is appropriate for his age at this time. About 5 lbs weight loss noted within 30 days since last hospitalization, however this is not a significant loss at this time. Of note, I have a call out to the dietitian at [facility] to discuss tubefeeding regimen and patient's weight history. Have yet to receive a call back. Discharge Plan-Living Situation: [facility] Goals: Receives tube-feeding regimen as above without aspiration or intolerance. Plan/Recommendation: NPO diet order per MD order. Trial of tube Feeding Regimen as follows: Peptamen 1.5 @ 84 mL/hr x 6 hours (2 cartons) Fluid Flushes: 120 mL q3hrs (total of 8 daily) with 30 mL flushes before and after tube feedings, and with medications. RDN will continue to monitor labs, tolerance, and make adjustments as needed. If patient tolerated this regimen, we will plan to increase to 15 hours daily[address] RDN will update assessment with Goal rate at later date.
--- NOTE | 2025-09-30 11:27 | REH.PT ---
Orders for PT Eval and treat received. Chart reviewed. Fusing Line Inspector familiar with pt from previous hospitalization. Pt at his functional baseline with transfers and gait. Needing Min A to transfer supine>sit and CGA with STS transfers and gait. Amb ~220 feet with hand hold/CGA with assist for way finding. No further skilled PT warranted. Appropriate to amb with nursing staff in hallway 4x/day to prevent deconditioning while hospitalized.
--- NOTE | 2025-09-30 13:42 | PC.SOCIAL ---
Addendum entered by RADHA Velez 09/30/25 16:29: Discharge planning: Progress notes were secure emailed to Donna in Admissions at [facility] this afternoon. Social work to follow-up as needed. Original Note: Discharge planning: general office worker confirmed with Donna in Admissions at [facility] that the pt is on a bed hold at [facility]. Social work to follow-up as needed.
--- NOTE | 2025-09-30 15:41 | PC.NURSE ---
End of shift [id number] - RN took over pt care at approximately 1230. Pt nonverbal, vocalized often without indication of specific need. Up with standby assistance and gait belt with RN to bathroom, incontinent of bladder. Family at bedside, provided RN with insight r/t pt comfort. Suction and oral care provided to help manage secretions. RN set up tube feeding per nutrition and MD order. Pt appears to be resting in bed with call light within reach and bed alarm active.
--- NOTE | 2025-09-30 16:37 | REH.OT ---
OT: Attempted x2 when patient with other disciplines. Returned to clarify PLOF with patient's spouse however no longer here. Noted he requires assist x1 for ADL management at SNF and unclear if currently participating in therapies at SNF. Patient with bed hold at [facility]. Per PT, patient ambulating with SBA and walking with nursing to/from bathroom. OT will reattempt and clarify with family to determine if OT needed in acute care vs when returns to SNF.
[2025-09-30] MEDS: ONDANSETRON 2 MG/ML inj 4 MG IVP (18:02)
[2025-09-30] MEDS: AMPICILLIN/SULBACTAM 3 GM in 0.9 % SODIUM CHLORIDE Mini-bag 100 ML IVPB (21:00)
[2025-09-30] MEDS: ATORVASTATIN CALCIUM 40 MG TABLET 80 MG G-TUBE (21:00)
[2025-09-30] MEDS: GABAPENTIN 300 MG CAPSULE G-TUBE (21:00)
--- NOTE | 2025-09-30 22:31 | PC.NURSE ---
Pt assist of 1-2 w/gaitbelt. pt incont of bladder, brief checked and changed throughout shift. Mepilex placed on coccyx. Pt had restless and fever, IV pain Meds given as prescribed. Pt had an emesis, IV Zofran given, feeding rate reduced from 84ml/hr to 50ml/hr per provider order. pt is afebrile and on 3l NS at this time, pt resting comfortably in bed at this time.
[2025-10-01] VITALS (18 sets, daily range): BP systolic 93–131; BP diastolic 55–66; PULSE 70–117; RESP 18–32; TEMP 36.7–38.7; O2SAT 81–97
[2025-10-01] MEDS: SODIUM CHLORIDE 0.9 % (FLUSH) 10 ML SYRINGE 5 ML IVF ×3 (02:14→20:40)
--- NOTE | 2025-10-01 02:23 | CRLHL7_ITS ---
For Patients: As a result of the Century Cures Act, medical imaging exams and procedure reports are released immediately into your electronic medical record. You may view this report before your referring provider. If you have questions, please contact your health care provider. INDICATION: Tachypneic. TECHNIQUE: Chest 1 view. COMPARISON: 09/30/2025. FINDINGS: Cardiovascular and mediastinum: Heart size and vasculature are normal in caliber and appearance. Lungs and pleural spaces: New patchy infiltrates within the left mid and lower lung zones. No pleural effusion or pneumothorax. The right lung is clear. Bones and soft tissues: Unremarkable for age. IMPRESSION: New patchy infiltrates within the left mid and lower lung zones, concerning for a multifocal infectious/inflammatory process. Dictated by Billy Trejo MD @ 10/01/2025 2:58:46 AM (Electronically Signed)
[2025-10-01 02:50] LABS: HCO3 VBG 25 mmol/L (21-28); PCO2 VBG 37 mmHG (40-50); PO2 VBG 46.5 mmHG (25-47); pH VBG 7.440 (7.32-7.43)
[2025-10-01 02:51] LABS: Hematocrit* 36.3 % (37.0-53.0); Hemoglobin* 12.4 gm/dL (13.5-17.5); Immature Granulocytes Abs Auto 0.06 K/uL (0.00-0.30); Immature Granulocytes Pct Auto 0.6 %; Lymphocytes Absolute Auto 0.70 K/uL (0.90-2.90); Mean Corpuscular HGB Conc 34 gm/dL (32-36); Mean Corpuscular Hemoglobin 32 pg (26-34); Mean Corpuscular Volume 94 fL (80-100); RDW Coefficient of Variation % 12.4 % (11.5-15.5); Red Blood Count* 3.85 m/uL (4.30-5.90); White Blood Count* 10.40 K/uL (4.50-11.00)
[2025-10-01 02:52] LABS: Lactate Sepsis w/Reflex* 0.7 mmol/L (0.5-1.9); Slide Review Reflex No
[2025-10-01 03:06] LABS: Albumin* 3.5 g/dL (3.3-5.0); Chloride* 103 mmol/L (96-114); Potassium* 3.5 mmol/L (3.6-5.1); Sodium* 135 mmol/L (135-149)
[2025-10-01 03:09] LABS: Alanine Aminotransferase* 29 U/L (4-50); Alkaline Phosphatase* 46 U/L (40-150); Anion Gap 7 mEq/L (7-15); Aspartate Amino Transferase* 32 U/L (12-35); Bilirubin Total* 1.1 mg/dL (0.1-1.5); Blood Urea Nitrogen* 22 mg/dL (7-30); Carbon Dioxide* 25 mmol/L (20-32); Creatinine* 0.6 mg/dL (0.5-1.5); Est. Creatinine Clearance* 72.66; Estimated Glomerular Filt Rate 106 ml/min; Total Protein* 5.9 g/dL (6.0-8.3)
[2025-10-01 03:10] LABS: Calcium* 8.2 mg/dL (8.4-10.6); Glucose* 99 mg/dL (60-115)
[2025-10-01 03:12] LABS: D Dimer Quantitative* 0.38 ug/ml (0.00-0.50)
[2025-10-01] MEDS: PIPERACILLIN/TAZOBACTAM 3.375 GM in 0.9 % SODIUM CHLORIDE Mini-bag 100 ML IVPB (03:18)
[2025-10-01 03:22] LABS: NT Pro B Type NatriureticPept* 2260 pg/mL (See Note)
--- NOTE | 2025-10-01 03:55 | P.EN_ITS ---
Chart Event Note Chart Event Note: Telehospitalist Cross cover note Call due to sepsis flag, fever 101.6, increased RR 34. BP 131/58, pulse 117. Ordered CXR, lactate, D-Dimer, BNP, and early draw of previously ordered AM labs. Changed Abx to Zosyn / Vanco. CXR with obvious infiltrate now. Labs notable for improving (normal) lactate, i ncreased CRP, low normal potassium and BNP over 1999. Will hold off on IVF for now with elevated BNP but do not feel he needs IV diuretics at this point.
[2025-10-01] MEDS: VANCOMYCIN 1.5 GM/300 ML 1.5 GM/300 ML PIGGYBACK IVPB (03:57)
--- NOTE | 2025-10-01 05:47 | PC.NURSE ---
[id number] Pt met sepsis criteria during shift, high temp 101.6, RR 36, require 3LPM O2 with O2 sats low 90's, called bernice and orders received and completed. pt responded to interventions, temp decreased to 98.0, RR 24 and O2 sats low to mid 90's on 2LPM NC, pt able to sleep once feeling better. G-tube feeding completed and stopped at midnight, no vomiting during night, tolerated q3h 120ml h20 g-tube boluses administered via gravity.
[2025-10-01] MEDS: ONDANSETRON 2 MG/ML inj 4 MG IVP ×3 (09:14→20:03)
[2025-10-01] MEDS: APIXABAN 5 MG TABLET 2.5 MG G-TUBE ×2 (09:15→20:38)
[2025-10-01] MEDS: SENNOSIDES 1 TAB TABLET 2 TAB G-TUBE (09:15)
[2025-10-01] MEDS: SIMETHICONE 80 MG TAB.CHEW G-TUBE ×4 (09:15→20:39)
[2025-10-01] MEDS: ESCITALOPRAM 10 MG TABLET G-TUBE (09:15)
[2025-10-01] MEDS: ASPIRIN 81 MG TAB.CHEW G-TUBE (09:16)
--- NOTE | 2025-10-01 09:24 | P.IMPN_ITS ---
Assessment and Plan Assessment and plan (1) Severe sepsis: Problem comment: -met criteria given his fever, heart rate, respiratory rate, witnessed aspiration event, elevated lactate. -query developing pneumonia (CXR lag vs aspiration pneumonitis) -rec'd IV zosyn and doxy -will continue, at this time, oral augmentin and RT consult -admitted for further cares (neb, suctioning) - pending Status: Acute (2) Aspiration, chronic pulmonary: Problem comment: 08/26/25 - admitted to [facility] for asp pneumonitis 09/30/25 - admitted to [facility] for asp pneumonitis Query post pyloric feeding. Query chlorhexidine mouthwash. Query up prokinetic agent like metoclopramide or erythromycin. History stroke increases his risk of aspiration, clearly. However his consciousness, ability to protect his airway, upright seating and avoiding bolus feeding are still not helping. He is already on elemental diet, that should be reducing his aspiration risk. Understanding the gastric residual volume measurements has poor sensitivity for detecting aspiration and do not predict pneumonia or improved outcomes actually routine G RV HX increased tube clogging rest 10 fold paradoxically base pneumonia risk by reducing nutritional delivery. -head of bed elevation -chlorhexidine oral care -diverting to the small-bowel, post pyloric -prokinetic medications -suggesting weight and avoiding bolus Status: Acute (3) Hemiplegia affecting left nondominant side: Problem comment: -dense deficits; lives in SNF. Moderate Assist of 1. nonverbal. Status: Chronic (4) History of CVA (cerebrovascular accident): Problem comment: 01/2020 - residual effects on the left side, but discharged home; continued to work and drive 02/2023 - devastating right carotid artery stroke, left side hemiparesis, aphasia, no longer swallows - admitted to LTC in April 2023 with gastrostomy tube, 29/05 care. Status: Acute (5) History of gastrostomy tube placement: Status: Acute (6) Feeding by G-tube: Problem comment: -managed by [facility], last exchange 08/15/2025 -8100-18 G tube Status: Acute (7) Pulmonary embolism: Problem comment: during hospitalization for CVA in 2022 Status: Acute (8) Anticoagulant long-term use: Status: Acute Exam Const: Vital Signs, click to edit/add: Vital Signs - 24 hr 09/30/25 09:26 09/30/25 09:31 09/30/25 10:36 Temperature 99.6 F Pulse Rate 77 Pulse Rate [Pulse Oximeter] 93 Respiratory Rate 28 H 28 H Blood Pressure [Le ft Arm] 116/69 Blood Pressure [Ri ght Arm] Pulse Oximetry 91 91 Oxygen Delivery Me thod Room Air Room Air Oxygen Flow Rate 09/30/25 11:03 09/30/25 15:00 09/30/25 15:00 Temperature 98.7 F 98.7 F Pulse Rate Pulse Rate [Pulse Oximeter] 75 100 100 Respiratory Rate 22 24 24 Blood Pressure [Le ft Arm] 124/65 130/65 Blood Pressure [Ri ght Arm] Pulse Oximetry 95 90 Oxygen Delivery Me thod Room Air Room Air Oxygen Flow Rate 09/30/25 15:00 09/30/25 19:00 09/30/25 21:00 Temperature 101.3 F H 99.3 F Pulse Rate 106 H Pulse Rate [Pulse Oximeter] 99 103 H Respiratory Rate 24 22 Blood Pressure [Le ft Arm] 132/65 Blood Pressure [Ri ght Arm] Pulse Oximetry 93 Oxygen Delivery Me thod Room Air Oxygen Flow Rate 09/30/25 21:10 09/30/25 21:15 09/30/25 23:00 Temperature Pulse Rate Pulse Rate [Pulse Oximeter] Respiratory Rate 36 H Blood Pressure [Le ft Arm] Blood Pressure [Ri ght Arm] Pulse Oximetry 87 L 91 Oxygen Delivery Me thod Room Air Nasal Cannula Oxygen Flow Rate 3 09/30/25 23:00 09/30/25 23:00 09/30/25 23:43 Temperature 99.5 F Pulse Rate 83 Pulse Rate [Pulse Oximeter] 97 Respiratory Rate 36 H 36 H Blood Pressure [Le ft Arm] 95/78 Blood Pressure [Ri ght Arm] Pulse Oximetry 96 96 Oxygen Delivery Me thod Nasal Cannula Nasal Cannula Oxygen Flow Rate 3 3 10/01/25 01:53 10/01/25 02:14 10/01/25 02:50 Temperature 101.6 F H 101.6 F H 100.0 F H Pulse Rate Pulse Rate [Pulse Oximeter] 117 H Respiratory Rate 32 H Blood Pressure [Le ft Arm] Blood Pressure [Ri ght Arm] 131/58 L Pulse Oximetry 94 Oxygen Delivery Me thod Nasal Cannula Oxygen Flow Rate 3 10/01/25 03:41 10/01/25 04:55 10/01/25 07:00 Temperature 98.8 F 98.0 F 98.4 F Pulse Rate Pulse Rate [Pulse Oximeter] 91 85 78 Respiratory Rate 24 24 Blood Pressure [Le ft Arm] Blood Pressure [Ri ght Arm] 111/59 L 93/60 108/66 Pulse Oximetry 90 93 96 Oxygen Delivery Me thod Nasal Cannula Nasal Cannula Room Air Oxygen Flow Rate 2 2 Labs Labs: Laboratory Results - last 24 hr 09/30/25 09/30/25 10/01/25 08:05 09:20 02:45 WBC 10.40 RBC 3.85 L Hgb 12.4 L Hct 36.3 L MCV 94 MCH 32 MCHC 34 RDW Coeff of Namita 12.4 Plt Count 164 Neut % (Auto) 88.5 H Lymph % (Auto) 6.7 L [place] % (Auto) 4.1 Eos % (Auto) 0.0 Baso % (Auto) 0.1 Neut # (Auto) 9.20 H Lymph # (Auto) 0.70 L [place] # (Auto) 0.40 Eos # (Auto) 0.00 Baso # (Auto) 0.01 Abs Immat Gran (auto) 0.06 Imm/Tot Granulo (auto) 0.6 D-Dimer Quant (PE/DVT) 0.38 VBG pH 7.440 H VBG pCO2 37 L VBG pO2 46.5 VBG HCO3 25 Sodium 135 Potassium 3.5 L Chloride 103 Carbon Dioxide 25 Anion Gap 7 BUN 22 Creatinine 0.6 Estimated Creat Clear 72.66 Estimated GFR 106 Glucose 99 Lactate 0.7 Calcium 8.2 L Magnesium 1.6 Total Bilirubin 1.1 AST 32 ALT 29 Alkaline Phosphatase 46 Troponin I < 0.01 C-Reactive Protein 1.5 H 15.1 H NT-Pro-B Natriuret Pep 2260 H Total Protein 5.9 L Albumin 3.5 Procalcitonin 0.15 Lab Acknowledgement Test Added
[2025-10-01] MEDS: AMPICILLIN/SULBACTAM 3 GM in 0.9 % SODIUM CHLORIDE Mini-bag 100 ML IVPB ×3 (09:27→20:48)
--- NOTE | 2025-10-01 11:18 | PC.SOCIAL ---
Addendum entered by RADHA Velez 10/01/25 14:47: Discharge planning: Pt's discharge summary was secure emailed to Donna at [facility]. Social work to follow-up as needed. Addendum entered by RADHA Velez 10/01/25 14:43: Discharge planning: qualified craft worker electrician notified Donna in Admissions at [facility] that the pt will be transferring to [facility] in [place]. Social work to follow-up as needed. Original Note: Discharge planning: qualified craft worker electrician spoke with Donna in Admissions at [facility] and she stated that the pt never started PT/OT at [facility] after he returned from the hospital last month because when he was assessed by their PT staff he was found to be at his baseline and not in need of therapies. Social work to follow-up as needed.
--- NOTE | 2025-10-01 11:43 | P.IMPN_ITS ---
Assessment and Plan Assessment and plan (1) Severe sepsis: Problem comment: 09/30 -met criteria given his fever, heart rate, respiratory rate, witnessed aspiration event, elevated lactate. -query developing pneumonia (CXR lag vs aspiration pneumonitis) 10/01 evidence of LLL asp pneumonia and now mildly hypoxic. -rec'd IV zosyn and doxy in the ED - then on admission he was on oral augmentin - with subsequent episodes of aspiration - He rec'd unasyn and one dose of vanc/zosyn. Unasyn restarted without zosyn or vanc on the am of 10/01. -BC neg to date Status: Acute (2) Aspiration, chronic pulmonary: Problem comment: 08/26/25 - admitted to [place] for asp pneumonitis 09/30/25 - admitted to [place] for asp pneumonitis Query post pyloric extension. Query chlorhexidine mouthwash. On prokinetics and ACEI (which decreases aspiration risk). His history of stroke increases his risk of aspiration, clearly. However, his consciousness, ability to protect his airway, upright seating and avoiding bolus feeding are still not helping. He is already on an elemental formula, that should be reducing his aspiration risk. Gastric residual volume (GRV) measurements have poor sensitivity for detecting aspiration and do not predict pneumonia or improve outcomes. GRV monitoring is not necessary in most cases. If used, avoid holding the feeds if the residual volume is less than 500 mL or even if greater than 500 but pt is tolerating the feeds. Routine residual volume checks increased tube clogging risk 10-fold and may paradoxically increase pneumonia risk by reducing nutritional delivery over time. so only things we have not pursued: -chlorhexidine oral care (not really possible with his deficits) -diverting to the small-bowel, post pyloric -Call out to [facility] 10/01/25 am for urgent extension of PEG-J extension. Status: Acute (3) Hemiplegia affecting left nondominant side: Problem comment: -dense deficits; lives in SNF. Moderate Assist of 1. nonverbal. Status: Chronic (4) History of CVA (cerebrovascular accident): Problem comment: 01/2020 - residual effects on the left side, but discharged home; continued to work and drive 02/2023 - devastating right carotid artery stroke, left side hemiparesis, aphasia, no longer swallows - admitted to LTC in April 2023 with gastrostomy tube, 29/05 care. Status: Acute (5) History of gastrostomy tube placement: Problem comment: Tube Type: Gastrostomy, [place]. -8100-18 G tube Tube Connection: ENFit. Tube Size: 18 Sudanese. Low Profile: No. Disc Height: 2 cm. Balloon Volume: 9 mL. Exchange tube in 3-[address] [facility] at [phone] to schedule the tube exchange. (last exchange 08/16/25) [facility] - IR RN supervisor bindery [phone] 10/01/25 - Discussed with IR Radiologist, Dr. Cardenas - approves urgent extension to tube to be done Status: Acute (6) Feeding by G-tube: Problem comment: bolus vs slow feed continuous have been trialed; Reglan, ACEI in place with positioning. peptide formula in use. Status: Acute (7) Pulmonary embolism: Problem comment: during hospitalization for CVA in 2022 Status: Acute (8) Anticoagulant long-term use: Status: Acute Subjective Date Seen: 10/01/25 Interval history: Daily Progress Note - Hospital Medicine Day #: 2 CC: Recurrent aspiration pneumonia 24 HOUR UPDATE: Patient came up from the ER yesterday. Was looking pretty good and even walking the halls. Not on oxygen. Later yesterday and early this morning he has had 2 new aspiration events. He now has an infiltrate in the left mid and lower lung zone. And he is now on 1 L of nasal cannula oxygen. He did spike fevers with both of these events. T-max 101.6? overnight. Currently afebrile. Hemodynamically stable. Up to 1 L respiratory support. Notable Labs, Micro, Rads, Interventions: 111/61. Pulse 81. Respiration 22. Afebrile. O2 sat 97%. Up to 1 L per nasal cannula oxygen support. CBC reflects a normal white blood cell count. Hemoglobin of 12.4. Normal platelets. Potassium is slightly low at 3.5. Otherwise his lactate kidney function other electrolytes magnesium, LFTs are all unremarkable. His CRP did jump from 1.5 up to 15.1 One-view chest x-ray earlier today New patchy infiltrates within the left mid and lower lung zones, concerning for a multifocal infectious/inflammatory process. Blood cultures and urine cultures are negative today Objective: alert; smiles (w/facial droop) when I mention his blue eyes. some recognition when I talk. He can not follow commands. Vitals: see above Lungs: rhonchi L>R Cardiac: S1S2. Disposition/Potential discharge - pending PEG to J tube extension at [facility], then back to [facility] Today I spent 50 minutes seeing the patient, reviewing [facility] and EPIC notes/diagnostics, discussing the care plan with our care time that includes social work, PT/OT, pharmacy, RT, snf and documenting my impressions and plan in the medical record. Exam Const: Vital Signs, click to edit/add: Vital Signs - 24 hr 09/30/25 15:00 09/30/25 15:00 09/30/25 15:00 Temperature 98.7 F Pulse Rate 106 H Pulse Rate [Pulse Oximeter] 100 100 Respiratory Rate 24 24 Blood Pressure [Le ft Arm] 130/65 Blood Pressure [Ri ght Arm] Pulse Oximetry 90 Oxygen Delivery Me thod Room Air Oxygen Flow Rate 09/30/25 19:00 09/30/25 21:00 09/30/25 21:10 Temperature 101.3 F H 99.3 F Pulse Rate Pulse Rate [Pulse Oximeter] 99 103 H Respiratory Rate 24 22 Blood Pressure [Le ft Arm] 132/65 Blood Pressure [Ri ght Arm] Pulse Oximetry 93 87 L Oxygen Delivery Me thod Room Air Room Air Oxygen Flow Rate 09/30/25 21:15 09/30/25 23:00 09/30/25 23:00 Temperature Pulse Rate Pulse Rate [Pulse Oximeter] Respiratory Rate 36 H 36 H Blood Pressure [Le ft Arm] Blood Pressure [Ri ght Arm] Pulse Oximetry 91 96 Oxygen Delivery Me thod Nasal Cannula Nasal Cannula Oxygen Flow Rate 3 3 09/30/25 23:00 09/30/25 23:43 10/01/25 01:53 Temperature 99.5 F 101.6 F H Pulse Rate 83 Pulse Rate [Pulse Oximeter] 97 117 H Respiratory Rate 36 H 32 H Blood Pressure [Le ft Arm] 95/78 Blood Pressure [Ri ght Arm] 131/58 L Pulse Oximetry 96 94 Oxygen Delivery Me thod Nasal Cannula Nasal Cannula Oxygen Flow Rate 3 3 10/01/25 02:14 10/01/25 02:50 10/01/25 03:41 Temperature 101.6 F H 100.0 F H 98.8 F Pulse Rate Pulse Rate [Pulse Oximeter] 91 Respiratory Rate 24 Blood Pressure [Le ft Arm] Blood Pressure [Ri ght Arm] 111/59 L Pulse Oximetry 90 Oxygen Delivery Me thod Nasal Cannula Oxygen Flow Rate 2 10/01/25 04:55 10/01/25 07:00 10/01/25 07:00 Temperature 98.0 F 98.4 F Pulse Rate 70 Pulse Rate [Pulse Oximeter] 85 78 Respiratory Rate 24 24 Blood Pressure [Le ft Arm] Blood Pressure [Ri ght Arm] 93/60 108/66 Pulse Oximetry 93 96 Oxygen Delivery Me thod Nasal Cannula Room Air Oxygen Flow Rate 2 10/01/25 07:00 10/01/25 07:00 10/01/25 09:09 Temperature Pulse Rate Pulse Rate [Pulse Oximeter] 78 Respiratory Rate 24 24 Blood Pressure [Le ft Arm] Blood Pressure [Ri ght Arm] Pulse Oximetry 96 96 Oxygen Delivery Me thod Room Air Oxygen Flow Rate 10/01/25 11:00 Temperature 98.9 F Pulse Rate Pulse Rate [Pulse Oximeter] 81 Respiratory Rate 22 Blood Pressure [Le ft Arm] Blood Pressure [Ri ght Arm] 111/61 Pulse Oximetry 97 Oxygen Delivery Me thod Room Air Oxygen Flow Rate Labs Labs: Laboratory Results - last 24 hr 10/01/25 02:45 WBC 10.40 RBC 3.85 L Hgb 12.4 L Hct 36.3 L MCV 94 MCH 32 MCHC 34 RDW Coeff of Namita 12.4 Plt Count 164 Neut % (Auto) 88.5 H Lymph % (Auto) 6.7 L [place] % (Auto) 4.1 Eos % (Auto) 0.0 Baso % (Auto) 0.1 Neut # (Auto) 9.20 H Lymph # (Auto) 0.70 L [place] # (Auto) 0.40 Eos # (Auto) 0.00 Baso # (Auto) 0.01 Abs Immat Gran (auto) 0.06 Imm/Tot Granulo (auto) 0.6 D-Dimer Quant (PE/DVT) 0.38 VBG pH 7.440 H VBG pCO2 37 L VBG pO2 46.5 VBG HCO3 25 Sodium 135 Potassium 3.5 L Chloride 103 Carbon Dioxide 25 Anion Gap 7 BUN 22 Creatinine 0.6 Estimated Creat Clear 72.66 Estimated GFR 106 Glucose 99 Lactate 0.7 Calcium 8.2 L Magnesium 1.6 Total Bilirubin 1.1 AST 32 ALT 29 Alkaline Phosphatase 46 C-Reactive Protein 15.1 H NT-Pro-B Natriuret Pep 2260 H Total Protein 5.9 L Albumin 3.5
--- NOTE | 2025-10-01 12:02 | REH.OT ---
OT: Clarified with RN patient's baseline status vs current status and deferring OT at this time due to patient completing ADLs with assist x1 and is ambulating to bathroom with nsg with SBA despite febrile overnight. If patient experiences further functional decline and skilled OT needed, may reconsult. Plan is for return to [facility] where patient has bed hold and 24 hour care.
[2025-10-01] MEDS: METOCLOPRAMIDE 10 MG TABLET G-TUBE ×2 (13:46→20:39)
--- NOTE | 2025-10-01 14:20 | PM.DST ---
Transfer Discharge Sum: Prov Provider Date Seen: 10/01/25 Date of admission: 09/30/25 10:28 Primary care physician: Dean Burris MD Consults: 09/30/25 09:09 Consult to Occupational Therapy [CONS] Routine Comment: Reason(s) for OT Consult:: Evaluate and Treat Any Restrictions?:: No Restrictions Consult to Physical Therapy [CONS] Routine Comment: Reason(s) for PT Consult:: Evaluate and Treat Any Restrictions?:: No Restrictions Consult to Respiratory Therapy [CONS] Routine Comment: Reason(s) for RT Consult:: Consult Consult to Checking Department Supervisor [CONS] Routine Comment: Reason for Consult:: Social Service Consult 09/30/25 09:25 Consult to Nutrition [CONS] Routine Comment: can we intervene to lower aspiration risk/events? Reason for consult:: Nutritional Consult Attending physician on discharge: Laney Moon Anticipated date of transfer: 10/01/25 DS: Diagnosis Discharge Diagnosis (1) Severe sepsis: Status: Acute Problem details: 09/30 -met criteria given his fever, heart rate, respiratory rate, witnessed aspiration event, elevated lactate. -query developing pneumonia (CXR lag vs aspiration pneumonitis) 10/01 evidence of LLL asp pneumonia and now mildly hypoxic. -rec'd IV zosyn and doxy in the ED - then on admission he was on oral augmentin - with subsequent episodes of aspiration - He rec'd unasyn and one dose of vanc/zosyn. Unasyn restarted without zosyn or vanc on the am of 10/01. -BC neg to date (2) Aspiration, chronic pulmonary: Status: Acute Problem details: 08/26/25 - admitted to [place] for asp pneumonitis 09/30/25 - admitted to [place] for asp pneumonitis Query post pyloric extension. Query chlorhexidine mouthwash. On prokinetics and ACEI (which decreases aspiration risk). His history of stroke increases his risk of aspiration, clearly. However, his consciousness, ability to protect his airway, upright seating and avoiding bolus feeding are still not helping. He is already on an elemental formula, that should be reducing his aspiration risk. Gastric residual volume (GRV) measurements have poor sensitivity for detecting aspiration and do not predict pneumonia or improve outcomes. GRV monitoring is not necessary in most cases. If used, avoid holding the feeds if the residual volume is less than 500 mL or even if greater than 500 but pt is tolerating the feeds. Routine residual volume checks increased tube clogging risk 10-fold and may paradoxically increase pneumonia risk by reducing nutritional delivery over time. so only things we have not pursued: -chlorhexidine oral care (not really possible with his deficits) -diverting to the small-bowel, post pyloric -Call out to [place] 10/01/25 am for urgent extension of PEG-J extension. -[place] declined visit for procedure; transfer for inpatient care started afternoon 10/01 (3) Hemiplegia affecting left nondominant side: Status: Chronic Problem details: -dense deficits; lives in SNF. Moderate Assist of 1. nonverbal. (4) History of CVA (cerebrovascular accident): Status: Acute Problem details: 01/2020 - residual effects on the left side, but discharged home; continued to work and drive 02/2023 - devastating right carotid artery stroke, left side hemiparesis, aphasia, no longer swallows - admitted to LTC in April 2023 with gastrostomy tube, 29/05 care. (5) History of gastrostomy tube placement: Status: Acute Problem details: Tube Type: Gastrostomy, [place]. -8100-18 G tube Tube Connection: ENFit. Tube Size: 18 [place]. Low Profile: No. Disc Height: 2 cm. Balloon Volume: 9 mL. Exchange tube in 3-5 months. Contact the [facility] clinic at [phone] to schedule the tube exchange. (last exchange 08/16/25) [facility] - RN molding room supervisor [phone] 10/01/25 - Discussed with IR Radiologist, Dr. Cardenas - approves urgent extension to tube to be done (6) Feeding by G-tube: Status: Acute Problem details: bolus vs slow feed continuous have been trialed; Reglan, ACEI in place with positioning. peptide formula in use. (7) Anticoagulant long-term use: Status: Acute (8) Pulmonary embolism: Status: Acute Problem details: during hospitalization for CVA in 2022 Transfer Discharge Sum: Med Medications Active and Home Medications: Home Medications acetaminophen 500 mg tablet 1,000 mg feeding tube BID 11/08/24 [History Confirmed 09/30/25] apixaban 2.5 mg tablet 2.5 mg feeding tube BID 11/08/24 [History Confirmed 09/30/25] aspirin 81 mg chewable tablet 1 tab feeding tube DAILY 11/08/24 [History Confirmed 09/30/25] atorvastatin 80 mg tablet 80 mg feeding tube HS 11/08/24 [History Confirmed 09/30/25] carbamide peroxide 6.5 % ear drops (Debrox) 3 drp otic (ear) .TUE@21 08/26/25 [History Confirmed 09/30/25] escitalopram oxalate 10 mg tablet 10 mg feeding tube DAILY 08/26/25 [History Confirmed 09/30/25] gabapentin 300 mg capsule 300 mg feeding tube HS 08/26/25 [History Confirmed 09/30/25] lansoprazole 30 mg oral suspension,delayed release 30 mg PO BID 08/26/25 [History Confirmed 09/30/25] lisinopril 10 mg tablet 10 mg feeding tube DAILY 08/26/25 [History Confirmed 09/30/25] loratadine 5 mg/5 mL oral solution 10 mg feeding tube DAILY 08/26/25 [History Confirmed 09/30/25] melatonin 3 mg tablet 6 mg feeding tube HS 08/26/25 [History Confirmed 09/30/25] metoclopramide HCl 10 mg tablet 10 mg feeding tube TID 08/26/25 [History Confirmed 09/30/25] sennosides 8.6 mg tablet (Natural Senna Laxative) 17.2 mg feeding tube BID 08/26/25 [History Confirmed 09/30/25] simethicone 80 mg chewable tablet (Gas Relief 80 (simethicone)) 80 mg feeding tube QID 08/26/25 [History Confirmed 09/30/25] Active Medications Acetaminophen (Acetaminophen 500 Mg Tablet) 1,000 mg G-TUBE BID [facility] Albuterol (Albuterol Sulfate 2.5 Mg/3 Ml Vial.Neb) 2.5 mg NEB Q4H PRN Albuterol/Ipratropium (Iprat-Albut 0.5-2.5 Mg/3 Ml Neb) 1 neb IH Q2H PRN Apixaban (Apixaban 5 Mg Tablet) 2.5 mg G-TUBE BID [facility] Last Admin: 10/01/25 09:15 Dose: 2.5 mg Artificial Tears (Carboxymethylcellulose (Refresh Plus) Tears) 1 drop EYE-BOTH BID PRN PRN Reason: Ocular lubricant Aspirin (Aspirin 81 Mg Tab.Chew) 81 mg G-TUBE DAILY [facility] Last Admin: 10/01/25 09:16 Dose: 81 mg Atorvastatin Calcium (Atorvastatin Calcium 40 Mg Tablet) 80 mg G-TUBE HS [facility] Last Admin: 09/30/25 21:00 Dose: 80 mg Carbamide Peroxide (Carbamide Peroxide Drops) 3 drop EAR-BOTH Tu@2100 PRN Escitalopram Oxalate (Escitalopram 10 Mg Tablet) 10 mg G-TUBE DAILY [facility] Last Admin: 10/01/25 09:15 Dose: 10 mg Gabapentin (Gabapentin 300 Mg Capsule) 300 mg G-TUBE HS [facility] Last Admin: 09/30/25 21:00 Dose: 300 mg Acetaminophen (Acetaminophen Inj) 1,000 mg in 100 mls @ 400 mls/hr IVPB Q6H PRN Last Infusion: 09/30/25 22:47 Dose: Infused Ampicillin Sodium/Sulbactam (Sodium 3 gm/ Sodium Chloride) 100 mls @ 200 mls/hr IVPB Q6H [facility] Last Infusion: 10/01/25 10:00 Dose: Infused Sodium Chloride (0.9 % Sodium Chloride 1000 Ml) 1,000 mls @ 125 mls/hr IV .Q8H [facility] Last Admin: 10/01/25 09:17 Dose: 125 mls/hr Ketorolac Tromethamine (Ketorolac 30 Mg/Ml Inj) 30 mg IVP Q6H PRN PRN Reason: cough discomfort, fever Last Admin: 10/01/25 02:14 Dose: 30 mg Lisinopril (Lisinopril 10 Mg Tablet) 10 mg G-TUBE DAILY [facility] Metoclopramide HCl (Metoclopramide 10 Mg Tablet) 10 mg G-TUBE TID [facility] Last Admin: 10/01/25 13:46 Dose: 10 mg Omeprazole (Omeprazole [address]) 20 mg G-TUBE BID [facility] Ondansetron HCl (Ondansetron 2 Mg/Ml Inj) 4 mg IVP Q4H PRN PRN Reason: Nausea Last Admin: 10/01/25 13:46 Dose: 4 mg Sennosides (Sennosides 1 Tab Tablet) 2 tab G-TUBE BID [facility] Last Admin: 10/01/25 09:15 Dose: 2 tab Simethicone (Simethicone 80 Mg Tab.Chew) 80 mg G-TUBE QID [facility] Last Admin: 10/01/25 13:46 Dose: 80 mg Sodium Chloride (Sodium Chloride 0.9 % (Flush) 10 Ml Syringe) 5 ml IVF .FLUSH PRN Last Admin: 10/01/25 02:14 Dose: 5 ml Sodium Chloride (Sodium Chloride 0.9 % (Flush) 10 Ml Syringe) 5 ml IVF BID [facility] Last Admin: 10/01/25 09:16 Dose: 5 ml Transfer Discharge Sum: Hosp Hospital Course Hospital course: HOSPITALIST TRANSFER SUMMARY ATTENDING PHYSICIAN: Laney Moon MD REASON FOR TRANSFER Ongoing aspiration, in need of IR procedure to extend his gastrostomy tube to a jejunostomy. BRIEF HOSPITAL COURSE: He was admitted for recurrent aspiration pneumonia. He met the criteria for severe sepsis. Continued to fever and aspirate. We maximized noninvasive interventions without success. In discussion with our general surgeon and the eye our service at [place], it was suggested he transfer to [place] for ongoing aspiration cares as well as and procedure to extend his gastrostomy tube to a jejunostomy tube. SERVICES NOT AVAILABLE HERE THAT THIS PATIENT NEEDS: Interventional radiology Gastroenterology ACCEPTING PHYSICIAN/SERVICE/LOCATION: [facility] MEDICATIONS AT TIME OF TRANSFER: Home meds plus IV Unasyn and IV fluids DRIPS/LINES: Gastrostomy, peripheral IV VITAL SIGN, MEDICATION, LAB/MICRO, IMAGING SUMMARY (full details available in account tabs or by records request) REVIEW OF SYSTEMS Unchanged. PHYSICAL EXAM: CONSTITUTIONAL: Awake, alert. At his baseline currently. VITAL SIGNS: see record. Exam unchanged from earlier with notable exceptions: DISPOSITION: [facility] Time spent on discharge >30 minutes. This includes speaking with accepting physician; family/patient and coordinating meds/drips for transfer Time Spent with Patient Time attestation: Total time spent providing and/or coordinating transfer services: Total time spent: Greater than 30 minutes Exam Const: Vital Signs, click to edit/add: Vital Signs - 24 hr 09/30/25 15:00 09/30/25 15:00 09/30/25 15:00 Temperature 98.7 F Pulse Rate 106 H Pulse Rate [Pulse Oximeter] 100 100 Respiratory Rate 24 24 Blood Pressure [Le ft Arm] 130/65 Blood Pressure [Ri ght Arm] Pulse Oximetry 90 Oxygen Delivery Me thod Room Air Oxygen Flow Rate 09/30/25 19:00 09/30/25 21:00 09/30/25 21:10 Temperature 101.3 F H 99.3 F Pulse Rate Pulse Rate [Pulse Oximeter] 99 103 H Respiratory Rate 24 22 Blood Pressure [Le ft Arm] 132/65 Blood Pressure [Ri ght Arm] Pulse Oximetry 93 87 L Oxygen Delivery Me thod Room Air Room Air Oxygen Flow Rate 09/30/25 21:15 09/30/25 23:00 09/30/25 23:00 Temperature Pulse Rate Pulse Rate [Pulse Oximeter] Respiratory Rate 36 H 36 H Blood Pressure [Le ft Arm] Blood Pressure [Ri ght Arm] Pulse Oximetry 91 96 Oxygen Delivery Me thod Nasal Cannula Nasal Cannula Oxygen Flow Rate 3 3 09/30/25 23:00 09/30/25 23:43 10/01/25 01:53 Temperature 99.5 F 101.6 F H Pulse Rate 83 Pulse Rate [Pulse Oximeter] 97 117 H Respiratory Rate 36 H 32 H Blood Pressure [Le ft Arm] 95/78 Blood Pressure [Ri ght Arm] 131/58 L Pulse Oximetry 96 94 Oxygen Delivery Me thod Nasal Cannula Nasal Cannula Oxygen Flow Rate 3 3 10/01/25 02:14 10/01/25 02:50 10/01/25 03:41 Temperature 101.6 F H 100.0 F H 98.8 F Pulse Rate Pulse Rate [Pulse Oximeter] 91 Respiratory Rate 24 Blood Pressure [Le ft Arm] Blood Pressure [Ri ght Arm] 111/59 L Pulse Oximetry 90 Oxygen Delivery Me thod Nasal Cannula Oxygen Flow Rate 2 10/01/25 04:55 10/01/25 07:00 10/01/25 07:00 Temperature 98.0 F 98.4 F Pulse Rate 70 Pulse Rate [Pulse Oximeter] 85 78 Respiratory Rate 24 24 Blood Pressure [Le ft Arm] Blood Pressure [Ri ght Arm] 93/60 108/66 Pulse Oximetry 93 96 Oxygen Delivery Me thod Nasal Cannula Room Air Oxygen Flow Rate 2 10/01/25 07:00 10/01/25 07:00 10/01/25 09:09 Temperature Pulse Rate Pulse Rate [Pulse Oximeter] 78 Respiratory Rate 24 24 Blood Pressure [Le ft Arm] Blood Pressure [Ri ght Arm] Pulse Oximetry 96 96 Oxygen Delivery Me thod Room Air Oxygen Flow Rate 10/01/25 11:00 Temperature 98.9 F Pulse Rate Pulse Rate [Pulse Oximeter] 81 Respiratory Rate 22 Blood Pressure [Le ft Arm] Blood Pressure [Ri ght Arm] 111/61 Pulse Oximetry 97 Oxygen Delivery Me thod Room Air Oxygen Flow Rate Discharge Plan Discharge Disposition: [facility] Date of Admission: 09/30/25 10:28 Attending Provider on Discharge: Laney Moon Primary Care Provider: Dean Burris Discharge Orders: Transfer of Care to Other Hospital (ORDER); Ordered 10/01/25 Ordered By: Laney Moon Oxygen: Yes Oxygen Delivery Method: Nasal Cannula Oxygen Flow Rate: 1-2 L per nasal cannula Urinary Catheter: No
[2025-10-01] MEDS: ACETAMINOPHEN INJ 1,000 MG/100 ML VIAL 400 MG IVPB (19:01)
--- NOTE | 2025-10-01 19:21 | PC.NURSE ---
End of Shift: Non-verbal. T-max 100.0 this afternoon, gave PRN tylenol, see MAR. all other VSS. 1-2A handheld. PPN initiated this shift. Flushed G-tube Q3hr this shift, tolerated well. Incontinent of bowel and bladder.
[2025-10-01] MEDS: ATORVASTATIN CALCIUM 40 MG TABLET 80 MG G-TUBE (20:39)
[2025-10-01] MEDS: OMEPRAZOLE 20 MG CAPSULE DR G-TUBE (20:39)
[2025-10-01] MEDS: GABAPENTIN 300 MG CAPSULE G-TUBE (20:39)
[2025-10-02] VITALS (13 sets, daily range): BP systolic 119–141; BP diastolic 65–104; PULSE 61–80; RESP 20–26; TEMP 36.6–37.8; O2SAT 90–95
[2025-10-02] MEDS: ACETAMINOPHEN INJ 1,000 MG/100 ML VIAL 400 MG IVPB (01:02)
[2025-10-02] MEDS: SODIUM CHLORIDE 0.9 % (FLUSH) 10 ML SYRINGE 5 ML IVF ×2 (01:23→21:13)
[2025-10-02] MEDS: AMPICILLIN/SULBACTAM 3 GM in 0.9 % SODIUM CHLORIDE Mini-bag 100 ML IVPB ×4 (03:51→20:55)
--- NOTE | 2025-10-02 06:15 | PC.NURSE ---
Pt Alert and oriented. Pt had temp of 100.1 managed with PRN medications. Pt continues to have cough with thick thin white/cream sputum, using suction as needed and when pt allows. Pt's base lung sounds continue to have coarse crackles with expiratory rhonchi. Pt was turned and repositioned throughout night. Pt was on 2-3L of O2 via nasal cannula to maintain stats of 90%.
[2025-10-02 06:33] LABS: Albumin* 3.1 g/dL (3.3-5.0); Chloride* 102 mmol/L (96-114)
[2025-10-02 06:34] LABS: Potassium* 3.3 mmol/L (3.6-5.1); Sodium* 136 mmol/L (135-149)
[2025-10-02 06:36] LABS: Alanine Aminotransferase* 26 U/L (4-50); Anion Gap 8 mEq/L (7-15); Aspartate Amino Transferase* 36 U/L (12-35); Blood Urea Nitrogen* 19 mg/dL (7-30); Carbon Dioxide* 26 mmol/L (20-32); Creatinine* 0.6 mg/dL (0.5-1.5); Est. Creatinine Clearance* 72.66; Estimated Glomerular Filt Rate 106 ml/min; Total Protein* 5.4 g/dL (6.0-8.3)
[2025-10-02 06:37] LABS: Alkaline Phosphatase* 43 U/L (40-150); Bilirubin Total* 1.3 mg/dL (0.1-1.5); Calcium* 8.0 mg/dL (8.4-10.6); Glucose* 104 mg/dL (60-115)
--- NOTE | 2025-10-02 07:34 | P.IMPN_ITS ---
Assessment and Plan Assessment and plan (1) Aspiration, chronic pulmonary: Problem comment: 08/26/25 - admitted to [place] for asp pneumonitis 09/30/25 - admitted to [place] for asp pneumonitis Query post pyloric extension. Query chlorhexidine mouthwash. On prokinetics and ACEI (which decreases aspiration risk). His history of stroke increases his risk of aspiration, clearly. However, his consciousness, ability to protect his airway, upright seating and avoiding bolus feeding are still not helping. He is already on an elemental formula, that should be reducing his aspiration risk. Gastric residual volume (GRV) measurements have poor sensitivity for detecting aspiration and do not predict pneumonia or improve outcomes. GRV monitoring is not necessary in most cases. If used, avoid holding the feeds if the residual volume is less than 500 mL or even if greater than 500 but pt is tolerating the feeds. Routine residual volume checks increased tube clogging risk 10-fold and may paradoxically increase pneumonia risk by reducing nutritional delivery over time. so only things we have not pursued: -chlorhexidine oral care (not really possible with his deficits) -diverting to the small-bowel, post pyloric -Call out to [facility] 10/01/25 am for urgent extension of PEG-J extension. -[facility] declined visit for procedure; transfer for inpatient care started afternoon 10/01, currently accepted for 10/05 transfer and 10/06 procedure Status: Acute (2) Severe sepsis: Problem comment: - 09/30:met criteria given his fever, heart rate, respiratory rate, witnessed aspiration event, elevated lactate - query developing pneumonia (CXR lag vs aspiration pneumonitis) - 10/01: evidence of LLL asp pneumonia, mild hypoxia - initially treated with Zoysn/Doxycycline, transition to oral Augmentin but given aspiration, transitioned back to IV therapy; on Unasyn as of 10/01/25 - BC neg to date Status: Acute (3) Hemiplegia affecting left nondominant side: Problem comment: -dense deficits; lives in SNF. Moderate Assist of 1. nonverbal. Status: Chronic (4) History of CVA (cerebrovascular accident): Problem comment: 01/2020 - residual effects on the left side, but discharged home; continued to work and drive 02/2023 - devastating right carotid artery stroke, left side hemiparesis, aphasia, no longer swallows - admitted to LTC in April 2023 with gastrostomy tube, 29/05 care. Status: Acute (5) History of gastrostomy tube placement: Problem comment: Tube Type: Gastrostomy, [place]. -8100-18 G tube Tube Connection: ENFit. Tube Size: 18 [place]. Low Profile: No. Disc Height: 2 cm. Balloon Volume: 9 mL. Exchange tube in 3-5 months. Contact the [facility] at [phone] to schedule the tube exchange. (last exchange 08/16/25) [facility] - IR RN admitting supervisor [phone] 10/01/25 - Discussed with IR Radiologist, Dr. Cardenas - approves urgent extension to tube to be done (currently scheduled for 10/06 at [facility]) Status: Acute (6) Feeding by G-tube: Problem comment: - bolus vs slow feed continuous have been trialed; Reglan, ACEI in place with positioning. peptide formula in use - stopped 10/01 given aspiration concerns, plan to transfer to [facility] on 10/05 for PEG to J tube extension on 10/06 with IR Status: Acute (7) Anticoagulant long-term use: Problem comment: - Apixaban Status: Acute (8) Pulmonary embolism: Problem comment: - during hospitalization for CVA in 2022, on Apixaban Status: Acute Plan - per above - Anali updated by phone, questions answered Subjective Date Seen: 10/02/25 Interval history: [place] was admitted to the hospital on 09/29/25 for recurrent aspiration pneumonia. Presented to ER from [facility]. History of CVA x2 (2019 and 2022; most recent CVA was R carotid artery stroke with severe L sided hemiparesis, aphasia, inability to swallow. Has G-tube, lives at [facility]), PE. Since admission: - Appeared septic 09/30 with fever, tachypnea, tachycardia. At that time, antibiotics escalated from Augmentin per G tube to Zosyn and Vancomycin - Improved clinically 10/01 with negative MRSA swab; antibiotics ultimately changed to Unasyn - continued aspiration through G-Tube; Dr. Moon reviewed concerns with Dr. Cardenas from [facility] IR on 10/01 who agrees that G tube likely needs to be urgently extended to J tube - [facility] accepted on 10/01 for transfer on 10/05 with procedure to be done 10/06 - PPN initiated 10/01/25 This morning, labs stable, VS stable. Tmax 100.1 overnight, afebrile this morning. Exam Narrative: Exam Narrative: GEN: Awake and sitting in bed, appears nontoxic, shakes his head when I ask if he needs anything HEENT: EOMIs bilaterally, no scleral icterus CV: RRR, No concerning murmurs R: Faint wheezing of bilateral apices Skin: No concerning skin lesions or rashes on exposed skin Neuro: Left-sided facial droop and left-sided weakness, per baseline Const: Vital Signs, click to edit/add: Vital Signs - 24 hr 10/01/25 09:09 10/01/25 11:00 10/01/25 15:00 Temperature 98.9 F Pulse Rate 88 Pulse Rate [Pulse Oximeter] 81 Respiratory Rate 22 Blood Pressure [Ri ght Arm] 111/61 Pulse Oximetry 96 97 Oxygen Delivery Me thod Room Air Oxygen Flow Rate 10/01/25 15:00 10/01/25 15:00 10/01/25 15:30 Temperature 98.9 F Pulse Rate Pulse Rate [Pulse Oximeter] 86 86 Respiratory Rate 20 18 20 Blood Pressure [Ri ght Arm] 126/64 Pulse Oximetry 96 96 Oxygen Delivery Me thod Room Air Room Air Oxygen Flow Rate 10/01/25 18:48 10/01/25 19:18 10/01/25 20:03 Temperature 100.0 F H 99.9 F H 98.4 F Pulse Rate Pulse Rate [Pulse Oximeter] 91 Respiratory Rate 18 Blood Pressure [Ri ght Arm] 120/55 L Pulse Oximetry 95 Oxygen Delivery Me thod Room Air Oxygen Flow Rate 10/01/25 20:03 10/01/25 20:39 10/01/25 22:15 Temperature 98.4 F 98.4 F Pulse Rate Pulse Rate [Pulse Oximeter] Respiratory Rate Blood Pressure [Ri ght Arm] Pulse Oximetry 81 L Oxygen Delivery Me thod Room Air Oxygen Flow Rate 10/01/25 22:16 10/01/25 22:52 10/01/25 23:00 Temperature 98.8 F Pulse Rate 85 Pulse Rate [Pulse Oximeter] 81 Respiratory Rate 20 Blood Pressure [Ri ght Arm] 111/56 L Pulse Oximetry 92 Oxygen Delivery Me thod Nasal Cannula Oxygen Flow Rate 2.5 10/01/25 23:00 10/01/25 23:00 10/02/25 01:02 Temperature 99.6 F Pulse Rate Pulse Rate [Pulse Oximeter] Respiratory Rate 20 20 Blood Pressure [Ri ght Arm] Pulse Oximetry 92 Oxygen Delivery Me thod Nasal Cannula Oxygen Flow Rate 2 10/02/25 01:22 10/02/25 03:47 10/02/25 03:47 Temperature 100.1 F H 98.4 F 98.4 F Pulse Rate Pulse Rate [Pulse Oximeter] 75 Respiratory Rate 20 Blood Pressure [Ri ght Arm] 124/65 Pulse Oximetry 91 Oxygen Delivery Me thod Nasal Cannula Oxygen Flow Rate 2 10/02/25 03:47 10/02/25 07:02 Temperature 98.4 F Pulse Rate 61 Pulse Rate [Pulse Oximeter] Respiratory Rate Blood Pressure [Ri ght Arm] Pulse Oximetry Oxygen Delivery Me thod Oxygen Flow Rate Labs Labs: Laboratory Results - last 24 hr 10/02/25 06:00 Sodium 136 Potassium 3.3 L Chloride 102 Carbon Dioxide 26 Anion Gap 8 BUN 19 Creatinine 0.6 Estimated Creat Clear 72.66 Estimated GFR 106 Glucose 104 Calcium 8.0 L Phosphorus 2.6 Magnesium 1.9 Total Bilirubin 1.3 AST 36 H ALT 26 Alkaline Phosphatase 43 Total Protein 5.4 L Albumin 3.1 L
[2025-10-02 08:45] LABS: Hematocrit* 34.4 % (37.0-53.0); Hemoglobin* 11.2 gm/dL (13.5-17.5); Immature Granulocytes Abs Auto 0.01 K/uL (0.00-0.30); Immature Granulocytes Pct Auto 0.1 %; Mean Corpuscular HGB Conc 33 gm/dL (32-36); Mean Corpuscular Hemoglobin 32 pg (26-34); Mean Corpuscular Volume 97 fL (80-100); RDW Coefficient of Variation % 12.4 % (11.5-15.5); Red Blood Count* 3.56 m/uL (4.30-5.90); White Blood Count* 9.05 K/uL (4.50-11.00)
[2025-10-02 08:48] LABS: Lymphocytes Absolute Auto 1.30 K/uL (0.90-2.90); Slide Review Reflex No
[2025-10-02] MEDS: APIXABAN 5 MG TABLET 2.5 MG G-TUBE ×2 (09:32→21:01)
[2025-10-02] MEDS: POTASSIUM BICARB 25 MEQ EFFERVESCENT TAB 50 MEQ G-TUBE (09:32)
[2025-10-02] MEDS: SIMETHICONE 80 MG TAB.CHEW G-TUBE ×4 (09:33→21:01)
[2025-10-02] MEDS: ASPIRIN 81 MG TAB.CHEW G-TUBE (09:33)
[2025-10-02] MEDS: ACETAMINOPHEN 500 MG TABLET 1000 MG G-TUBE ×2 (09:34→21:01)
[2025-10-02] MEDS: OMEPRAZOLE 20 MG CAPSULE DR G-TUBE ×2 (09:35→21:01)
[2025-10-02] MEDS: METOCLOPRAMIDE 10 MG TABLET G-TUBE ×3 (09:35→21:01)
[2025-10-02] MEDS: SENNOSIDES 1 TAB TABLET 2 TAB G-TUBE ×2 (09:35→21:01)
[2025-10-02] MEDS: ESCITALOPRAM 10 MG TABLET G-TUBE (09:36)
[2025-10-02 09:45] LABS: Hematocrit* 35.7 % (37.0-53.0); Hemoglobin* 11.5 gm/dL (13.5-17.5); Immature Granulocytes Abs Auto 0.00 K/uL (0.00-0.30); Immature Granulocytes Pct Auto 0.0 %; Mean Corpuscular HGB Conc 32 gm/dL (32-36); Mean Corpuscular Hemoglobin 32 pg (26-34); Mean Corpuscular Volume 98 fL (80-100); RDW Coefficient of Variation % 12.5 % (11.5-15.5); Red Blood Count* 3.64 m/uL (4.30-5.90); White Blood Count* 9.06 K/uL (4.50-11.00)
[2025-10-02 09:53] LABS: Lymphocytes Absolute Auto 0.90 K/uL (0.90-2.90); Slide Review Reflex No
[2025-10-02] MEDS: IPRAT-ALBUT 0.5-2.5 MG/3 ML NEB 1 NEB IH (11:31)
--- NOTE | 2025-10-02 17:58 | PC.NURSE ---
End of Shift: Patient pleasant and cooperative. Patient responds to name and points to the bathroom, and will make noise if he agrees with a questions. Patient is vitally stable, lungs course/crackles, BS WNL, IV running TPN at 100 and NS at 125. Patient is incontinent but urinating well and had 2 BMs. Patient does not like his mouth suctions. Patient uses bathroom but does not urinate or have a BM, bottoms gets changed in bathroom. Patient has walked the naylor. G tube was flushed appropriately and flushes well. Tele=NSR/SA with BBB. Patient ambulates with 1 assist, holding hands.
[2025-10-02] MEDS: GABAPENTIN 300 MG CAPSULE G-TUBE (21:01)
[2025-10-02] MEDS: ATORVASTATIN CALCIUM 40 MG TABLET 80 MG G-TUBE (21:01)
[2025-10-03] VITALS (15 sets, daily range): BP systolic 148–171; BP diastolic 74–93; PULSE 63–80; RESP 20–34; TEMP 36.9–37.8; O2SAT 91–96; BMI 26.5
[2025-10-03] MEDS: AMPICILLIN/SULBACTAM 3 GM in 0.9 % SODIUM CHLORIDE Mini-bag 100 ML IVPB ×2 (03:23→09:10)
--- NOTE | 2025-10-03 06:45 | PC.NURSE ---
Pt is nonverbal. Pt slept most of?overnight?shift. Pt up with?assist?of two.?
[2025-10-03 06:47] LABS: Hematocrit* 33.3 % (37.0-53.0); Hemoglobin* 10.9 gm/dL (13.5-17.5); Immature Granulocytes Abs Auto 0.00 K/uL (0.00-0.30); Immature Granulocytes Pct Auto 0.0 %; Mean Corpuscular HGB Conc 33 gm/dL (32-36); Mean Corpuscular Hemoglobin 31 pg (26-34); Mean Corpuscular Volume 96 fL (80-100); RDW Coefficient of Variation % 12.3 % (11.5-15.5); Red Blood Count* 3.47 m/uL (4.30-5.90); White Blood Count* 5.44 K/uL (4.50-11.00)
[2025-10-03 06:52] LABS: Lymphocytes Absolute Auto 1.00 K/uL (0.90-2.90); Slide Review Reflex No
[2025-10-03 07:00] LABS: Chloride* 102 mmol/L (96-114); Potassium* 3.6 mmol/L (3.6-5.1); Sodium* 134 mmol/L (135-149)
[2025-10-03 07:03] LABS: Anion Gap 6 mEq/L (7-15); Blood Urea Nitrogen* 18 mg/dL (7-30); Calcium* 7.9 mg/dL (8.4-10.6); Carbon Dioxide* 26 mmol/L (20-32); Creatinine* 0.5 mg/dL (0.5-1.5); Est. Creatinine Clearance* 72.66; Estimated Glomerular Filt Rate 112 ml/min; Glucose* 130 mg/dL (60-115)
--- NOTE | 2025-10-03 08:23 | CRLHL7_ITS ---
For Patients: As a result of the Cures Act, medical imaging exams and procedure reports are released immediately into your electronic medical record. You may view this report before your referring provider. If you have questions, please contact your health care provider. INDICATION: f/u pna, + wheezing and fever. (Sic) COMPARISON: Prior studies between 10/01/2025 and 11/08/2024. TECHNIQUE: Portable AP view of the chest. FINDINGS: Rotated leftward. Medical Devices: None. Lung Volumes: Adequate inspiration. No significant atelectasis. Lungs: Perihilar peribronchial cuffing consistent with nonspecific lower respiratory tract inflammation or infection. Differential diagnostic considerations include interstitial edema. No focal consolidation in either lung to indicate bronchopneumonia. A skin fold overlies the peripheral right lung base. Pleura and Pleural spaces: No significant pleural effusion. No pneumothorax. Mediastinum: AP technique exaggerates the transverse dimension of the cardiac silhouette. Cardiomegaly is nevertheless suspected. Bony Thorax and Soft Tissues: No significant incidental findings. Incidental note is made of a vascular stent in the left neck, unchanged compared to 11/08/2024. IMPRESSION: Perihilar peribronchial cuffing consistent with nonspecific lower respiratory tract inflammation or infection. Differential diagnostic considerations include interstitial edema. No focal consolidation in either lung to indicate bronchopneumonia. Suspected cardiomegaly as discussed above. Dictated by Haris Roth MD @ 10/03/2025 8:58:31 AM (Electronically Signed)
[2025-10-03] MEDS: IPRAT-ALBUT 0.5-2.5 MG/3 ML NEB 1 NEB IH (09:02)
[2025-10-03] MEDS: METOCLOPRAMIDE 10 MG TABLET G-TUBE ×3 (09:09→21:27)
[2025-10-03] MEDS: ACETAMINOPHEN 500 MG TABLET 1000 MG G-TUBE ×2 (09:09→21:27)
[2025-10-03] MEDS: SIMETHICONE 80 MG TAB.CHEW G-TUBE ×4 (09:09→21:30)
[2025-10-03] MEDS: OMEPRAZOLE 20 MG CAPSULE DR G-TUBE ×2 (09:09→21:27)
[2025-10-03] MEDS: ESCITALOPRAM 10 MG TABLET G-TUBE (09:09)
[2025-10-03] MEDS: APIXABAN 5 MG TABLET 2.5 MG G-TUBE ×2 (09:10→21:27)
[2025-10-03] MEDS: ASPIRIN 81 MG TAB.CHEW G-TUBE (09:10)
[2025-10-03] MEDS: SENNOSIDES 1 TAB TABLET 2 TAB G-TUBE (09:10)
[2025-10-03] MEDS: SODIUM CHLORIDE 0.9 % (FLUSH) 10 ML SYRINGE 5 ML IVF ×2 (09:11→21:28)
--- NOTE | 2025-10-03 09:25 | P.IMPN_ITS ---
Assessment and Plan Assessment and plan (1) Severe sepsis: Problem comment: - 09/30: fever, heart rate, respiratory rate, witnessed aspiration event, elevated lactate - source likely developing pneumonia (CXR lag vs aspiration pneumonitis) - 10/01: evidence of LLL asp pneumonia, mild hypoxia - initially treated with Zoysn/Doxycycline, transition to oral Augmentin but given aspiration, transitioned back to IV therapy; on Unasyn as of 10/01/25 - 10/03: Continues to have intermittent fevers, will broaden to Zosyn to cover Pseudomonas (does not need MRSA coverage, swab negative) - BC remained negative Status: Acute (2) Aspiration, chronic pulmonary: Problem comment: - history and discussion below - 10/03: On IV Zosyn, RT following 08/26/25 - admitted to [place] for asp pneumonitis 09/30/25 - admitted to [place] for asp pneumonitis Query post pyloric extension. Query chlorhexidine mouthwash. On prokinetics and ACEI (which decreases aspiration risk). His history of stroke increases his risk of aspiration, clearly. However, his consciousness, ability to protect his airway, upright seating and avoiding bolus feeding are still not helping. He is already on an elemental formula, that should be reducing his aspiration risk. Gastric residual volume (GRV) measurements have poor sensitivity for detecting aspiration and do not predict pneumonia or improve outcomes. GRV monitoring is not necessary in most cases. If used, avoid holding the feeds if the residual volume is less than 500 mL or even if greater than 500 but pt is tolerating the feeds. Routine residual volume checks increased tube clogging risk 10-fold and may paradoxically increase pneumonia risk by reducing nutritional delivery over time. so only things we have not pursued: -chlorhexidine oral care (not really possible with his deficits) -diverting to the small-bowel, post pyloric -Call out to [facility] 10/01/25 am for urgent extension of PEG-J extension. -[facility] declined visit for procedure; transfer for inpatient care started afternoon 10/01, currently accepted for 10/05 transfer and 10/06 procedure Status: Acute (3) Hemiplegia affecting left nondominant side: Problem comment: -dense deficits; lives in SNF ([address] [place] [address]) Moderate Assist of 1. Nonverbal Status: Chronic (4) History of CVA (cerebrovascular accident): Problem comment: 01/2020 - residual effects on the left side, but discharged home; continued to work and drive 02/2023 - devastating right carotid artery stroke, left side hemiparesis, aphasia, no longer swallows - admitted to LTC in April 2023 with gastrostomy tube, 29/05 care. Status: Acute (5) History of gastrostomy tube placement: Problem comment: Tube Type: Gastrostomy, [place]. -8100-18 G tube Tube Connection: ENFit. Tube Size: 18 Lithuanian. Low Profile: No. Disc Height: 2 cm. Balloon Volume: 9 mL. Exchange tube in 3-5 months. Contact the [facility] at [phone] to schedule the tube exchange. (last exchange 08/16/25) [facility] - IR RN turn supervisor [phone] 10/01/25 - Discussed with IR Radiologist, Dr. Cardenas - approves urgent extension to tube to be done (currently scheduled for 10/06 at [facility]) Status: Acute (6) Feeding by G-tube: Problem comment: - bolus vs slow feed continuous have been trialed; Reglan, ACEI in place with positioning. peptide formula in use - stopped 10/01 given aspiration concerns, plan to transfer to [facility] on 10/05 for PEG to J tube extension on 10/06 with IR Status: Acute (7) Anticoagulant long-term use: Problem comment: - Apixaban, scheduled to be HELD 10/04 for 10/06 procedure Status: Acute (8) Pulmonary embolism: Problem comment: - during hospitalization for CVA in 2022, on Apixaban Status: Acute Plan - per above (broaden to Zosyn, TTE, transfer to [facility] Monday) - HOLDING Eliquis starting 10/04 - updated bedside, questions answered Subjective Date Seen: 10/03/25 Interval history: Ranulfo was admitted to the hospital on 09/29/25 for recurrent aspiration pneumonia. Presented to ER from [facility]. History of CVA x2 (2019 and 2022; most recent CVA was R carotid artery stroke with severe L sided hemiparesis, aphasia, inability to swallow. Has G-tube, lives at [facility]), PE. Since admission: - Appeared septic 09/30 with fever, tachypnea, tachycardia. At that time, antibiotics escalated from Augmentin per G tube to Zosyn and Vancomycin - Improved clinically 10/01 with negative MRSA swab; antibiotics ultimately changed to Unasyn - continued aspiration through G-Tube; Dr. Moon reviewed concerns with Dr. Cardenas from [facility] IR on 10/01 who agrees that G tube likely needs to be urgently extended to J tube - [facility] accepted on 10/01 for transfer on 10/05 with procedure to be done 10/06 - PPN initiated 10/01/25 This morning, labs stable. Tmax 100.1 this morning with associated tachypnea (breathing improved when temperature improved). Difficulty clearing secretions 2/2 weakness, CVA deficits. No significant change on CXR this morning; will broaden abx coverage to Zosyn (from Unasyn) given persistent fevers. Mild pulmonary congestion noted + elevated BNP, TTE ordered. RT following. Exam Narrative: Exam Narrative: GEN: Awake and sitting in bed, initially tachpyneic when febrile, RR improved during second morning visit HEENT: EOMIs bilaterally, no scleral icterus CV: RRR, No concerning murmurs R: Wheezing bilateral apices, + bibasilar rhonchi L>R Skin: No concerning skin lesions or rashes on exposed skin Neuro: Left-sided facial droop and left-sided weakness, baseline Const: Vital Signs, click to edit/add: Vital Signs - 24 hr 10/02/25 10:08 10/02/25 11:12 10/02/25 15:47 Temperature 98.7 F 98.9 F Pulse Rate Pulse Rate [Pulse Oximeter] 80 77 Respiratory Rate 26 H 26 H Blood Pressure [Ri t Arm] 119/84 132/75 Pulse Oximetry 94 94 95 Oxygen Delivery Me thod Room Air Room Air Oxygen Flow Rate 10/02/25 15:47 10/02/25 15:47 10/02/25 15:51 Temperature Pulse Rate 77 Pulse Rate [Pulse Oximeter] 77 Respiratory Rate 26 H 26 H Blood Pressure [Ri t Arm] Pulse Oximetry 95 Oxygen Delivery Me thod Room Air Oxygen Flow Rate 10/02/25 20:00 10/02/25 22:47 10/02/25 23:23 Temperature 98.9 F 98.0 F Pulse Rate 67 Pulse Rate [Pulse Oximeter] 76 77 Respiratory Rate 20 20 Blood Pressure [Ri ght Arm] 137/104 H 141/67 H Pulse Oximetry 92 90 Oxygen Delivery Me thod Room Air Room Air Oxygen Flow Rate 10/02/25 23:29 10/03/25 03:18 10/03/25 08:15 Temperature 98.8 F 100.1 F H Pulse Rate Pulse Rate [Pulse Oximeter] 73 79 Respiratory Rate 20 20 34 H Blood Pressure [Ri ght Arm] 148/78 H 149/78 H Pulse Oximetry 90 91 91 Oxygen Delivery Me thod Room Air Room Air Room Air Oxygen Flow Rate 0 Labs Labs: Laboratory Results - last 24 hr 10/02/25 10/02/25 10/03/25 06:00 09:39 06:34 WBC 9.06 5.44 RBC 3.64 L 3.47 L Hgb 11.5 L 10.9 L Hct 35.7 L 33.3 L MCV 98 96 MCH 32 31 MCHC 32 33 RDW Coeff of Namita 12.5 12.3 Plt Count 143 158 Neut % (Auto) 83.7 H 73.2 H Lymph % (Auto) 9.7 L 18.9 L [place] % (Auto) 6.4 6.6 Eos % (Auto) 0.1 1.1 Baso % (Auto) 0.1 0.2 Neut # (Auto) 7.60 H 4.00 Lymph # (Auto) 0.90 1.00 [place] # (Auto) 0.60 0.40 Eos # (Auto) 0.01 0.06 Baso # (Auto) 0.01 0.01 Abs Immat Gran (auto) 0.00 0.00 Imm/Tot Granulo (auto) 0.0 0.0 Sodium 134 L Potassium 3.6 Chloride 102 Carbon Dioxide 26 Anion Gap 6 L BUN 18 Creatinine 0.5 Estimated Creat Clear 72.66 Estimated GFR 112 Glucose 130 H Calcium 7.9 L Phosphorus 2.6 Magnesium 1.9 C-Reactive Protein 27.9 H
--- NOTE | 2025-10-03 10:07 | W.PC.NUTR.HO ---
Hospital Nutrition Assessment Patient Data Patient Gender: Male Patient Age: 65 Height: 5 ft 9 in (175.26 cm) Weight: 179 lb 10.828 oz (81.61 kg) Body Mass Index: 26.5 Weight Calculations [place] Body Weight (lbs): 160.00 [place] Body Weight (kg): 72.58 Percent of [place] Body Weight: 112 Adjusted Body Weight (lbs): 164.92 Adjusted Body Weight (kg): 74.81 Basal Energy Expenditure (BEE): 1616.80 Basal Energy Expenditure (BEE) Adjusted Weight: 1524.81 Activity/Stress Factors Injury Factor/Activity Factor Value: 1.1 Total Energy Requirements Kcal requirements (current wt): 1778.480 Kcal requirements (adj wt): 1677.291 Protein Need (current wt): 1.0 Total Protein (current wt): 81.500 Protein Need (adj wt): 1.0 Total Protein (adj wt): 74.810 Fluid Need (current wt): 25 Total Fluid (current wt): 2037.500 Fluid Need (adj wt): 25 Total Fluid (adj wt): 1870.25 Nutrition Assessment Diet Order: NPO Diet Order Comment: NPO - requiring PN currently due to aspirating with tube feedings Allergies: NKFA Appetite and Intake: NPO - requiring PN currently due to aspirating with tube feedings Hx Appetite Changes: No Hx Weight Loss: Yes (Limited wt hx in chart - loss of 5 lbs in 30 days is NOT significant.) Hx Weight Gain: No Nausea: No Vomiting: No Diarrhea: No Hx Constipation: No Chewing Difficulty: Yes Swallowing Difficulty: Yes Pressure Ulcer: No Diagnosis/Symptom or Procedure: Severe sepsis, aspiration of airway Clinical History: Medical history includes but not limited to POLST Chronic ischemic left MCA stroke, History of gastrostomy tube placement, Hypertension, Hyperlipidemia, Hemiplegia affecting left nondominant side, CVAs, Dysphagia, Feeding by G-tube, and Diabetes mellitus type 2. Patient is non-verbal. He receives tube feedings through G-tube. Of note, he was admitted from 08/26/25 to 08/28/25 for Febrile illness with suspected aspiration. Current Living Situation: Resident at [facility]. Medications Medications: reviewed. Lab Results Lab Results: reviewed. TPN TPN placement: Patient currently receiving PPN TPN rate: 100 TPN dextrose percentage: 5 TPN amino acids percentage: 4.25 TPN lipid frequency: three times per week Assessment/Plan PES Statement: Inability to chew and swallow related to dysphagia as evidenced by need to G-tube feedings. Nutritional Assessment Summary: RDN with MD consult for PPN initiation Patient with history of stroke and dysphagia with need to enteral tube feedings (G-tube). He is non-verbal, strictly NPO, and is a resident at [facility]. On 09/30/25 when trialing a higher rate/reduced length G-tube tube feeding during the day patient aspirated and did not tolerate. Plan is for patient to have tube feeding extended to [facility] at [facility] Monday, 10/06. G-tube feedings were discontinued 10/01/2025. PPN was initiated 10/02/2025. Today is Day 4 of inadequate intakes. Patient continues to receive fluid flushes via G-tube currently: 120 mL q3hrs (total of 8 daily) with 30 mL flushes before and after tube feedings, and with medications. PPN Regimen Current PPN regimen is as follows - -PPN at 100 mL/hr x 24 hours (5% dextrose, 4.25% amino acids) which provides 408 kcals from dextrose (120 grams / 1.5 gm/kg), 408 kcals from amino acids (102 grams / 1.2 gm/kg), and 2400 mL fluids. This regimen does not meet current weight BEE needs. This meets 100% of protein and fluid needs. -RDN will increase PPN rate to 120 mL/hr x 24 hrs (5% dextrose, 4.25% amino acids) which provides 489.6 kcals from dextrose (120 grams / 1.5 gm/kg), 489.6 kcals from amino acids (122.4 grams / 1.2 gm/kg), and 2400 mL fluids (29.4mL/kg). Lipids will be ordered for today, 10/03, and tomorrow 10/04 in anticipation patient will discharge Monday, 10/05, to [place] for procedure. Lipids (20% 250mL emulsification) provide 450 kcals per day (50 grams / 0.6 gm/kg). Total calories is 1429.2 (979.2 kcals from PPN solution, 450 kcals from lipids). This regimen will meet protein and fluid needs, however will only meet about 88% of current weight BEE needs. Fluid Flushes via G-tube will be reduced to 30 mL q3hrs for maintenance, and 30 mL flushes before and after tube feedings, and with medications. Patient is meeting fluid needs via PPN. Of note, I called the dietitian at [facility] on 09/30/25 to discuss tubefeeding regimen and patient's weight history. Have yet to receive a call back. Discharge Plan-Living Situation: Transfer to [place] for G-tube extension to jejunum, anticipating 10/05. [facility] Goals: Receives PPN regimen as above without signs or symptoms of intolerance/refeeding syndrome. Plan/Recommendation: NPO diet order per MD order and patient history of requiring tube feedings. PPN Regimen Increase PPN rate to 120 mL/hr x 24 hrs (5% dextrose, 4.25% amino acids). Lipids will be ordered for today, 10/03, and tomorrow 10/04 in anticipation patient will discharge Monday, 10/05, to [place] for procedure. Fluid Flushes via G-tube will be reduced to 30 mL q3hrs for maintenance, and 30 mL flushes before and after tube feedings, and with medications. Patient is meeting fluid needs via PPN. RDN will continue to monitor for tolerance, labs, weight, and will follow-up prn. Of note, If patient does not transfer by 10/06/25, RDN will recommend initiating TPN to better meet patient's needs as this is patient's sole form of nutrition at this time.
[2025-10-03] MEDS: PERFLUTREN LIPID MICROSPHERES 2 ML VIAL IVP (13:25)
[2025-10-03] MEDS: PIPERACILLIN/TAZOBACTAM 3.375 GM in 0.9 % SODIUM CHLORIDE Mini-bag 100 ML IVPB ×2 (15:25→21:27)
--- NOTE | 2025-10-03 15:44 | PC.NURSE ---
End of Shift: Patient pleasant and cooperative. Patient vitally stable, lungs course, BS WNL, IV running PPN at 120 and NS at 125. With 7am vitals, patient was slightly febrile and respirations in the 30, MD was aware. Patient urinating well and had 2 soft BMs today. Patient is 1 assist with holding hands with ambulation. Tele=NSR.
[2025-10-03] MEDS: FAT EMULSIONS 20 % 250 ML/250 ML BAG 14 ML IV (18:39)
--- NOTE | 2025-10-03 19:31 | PC.NURSE ---
Nursing Care Hours: [id number] Pt non verbal but attempts to make needs known with grunting. Assisted x2 with with hand hold assist to bathroom. 3 loose stools with strong odor this shift. Pt wincing when wiping butt, but skin intact. When policy writer typist reapplied tele sticker to RLQ pt winced while on toilet. Palpated LLQ and pt winced. Reassessed with palpation while pt was laying in bed and no wincing occurred. PPN infusing without issue. Started lipids, no side effects occurred. G-tube flushed with water per order. Pt continues to intermittently cough outside and during flush times. Pt trying to spit sputum out. Nursing Home Social Worker attempted x3 to suction pt but pt refusing by grunting and turning head away.
[2025-10-03] MEDS: GABAPENTIN 300 MG CAPSULE G-TUBE (21:27)
[2025-10-03] MEDS: ATORVASTATIN CALCIUM 40 MG TABLET 80 MG G-TUBE (21:27)
[2025-10-03 22:22] LABS: C.Difficile Negative (Negative); CDIFFEPI 027 PRESUMPTIVE NEGATIVE (Negative)
[2025-10-04] VITALS (12 sets, daily range): BP systolic 140–187; BP diastolic 71–90; PULSE 57–96; RESP 20–26; TEMP 35.6–37.2; O2SAT 92–96
[2025-10-04] MEDS: PIPERACILLIN/TAZOBACTAM 3.375 GM in 0.9 % SODIUM CHLORIDE Mini-bag 100 ML IVPB ×4 (03:57→22:20)
[2025-10-04] MEDS: SODIUM CHLORIDE 0.9 % (FLUSH) 10 ML SYRINGE 5 ML IVF ×4 (03:59→23:00)
--- NOTE | 2025-10-04 06:55 | PC.NURSE ---
Pt is alert and oriented to self only.?Afebrile.?On room air.?Pt?continues to have?intermittent?productive cough.?Pt lung sounds have course crackles and expiratory wheezing. Pt?is up A2 with IV pole, voiding, and tolerating an NPO diet.??
[2025-10-04 07:21] LABS: Hematocrit* 32.4 % (37.0-53.0); Hemoglobin* 10.8 gm/dL (13.5-17.5); Immature Granulocytes Abs Auto 0.01 K/uL (0.00-0.30); Immature Granulocytes Pct Auto 0.2 %; Lymphocytes Absolute Auto 1.20 K/uL (0.90-2.90); Mean Corpuscular HGB Conc 33 gm/dL (32-36); Mean Corpuscular Hemoglobin 32 pg (26-34); Mean Corpuscular Volume 95 fL (80-100); RDW Coefficient of Variation % 12.1 % (11.5-15.5); Red Blood Count* 3.43 m/uL (4.30-5.90); White Blood Count* 4.73 K/uL (4.50-11.00)
[2025-10-04 07:23] LABS: Slide Review Reflex No
[2025-10-04 07:28] LABS: Chloride* 102 mmol/L (96-114); Potassium* 3.5 mmol/L (3.6-5.1); Sodium* 133 mmol/L (135-149)
[2025-10-04 07:31] LABS: Blood Urea Nitrogen* 16 mg/dL (7-30); Creatinine* 0.4 mg/dL (0.5-1.5); Est. Creatinine Clearance* 72.66; Estimated Glomerular Filt Rate 120 ml/min
[2025-10-04 07:32] LABS: Anion Gap 8 mEq/L (7-15); Calcium* 7.8 mg/dL (8.4-10.6); Carbon Dioxide* 23 mmol/L (20-32); Glucose* 127 mg/dL (60-115)
[2025-10-04] MEDS: ALBUTEROL SULFATE 2.5 MG/3 ML VIAL.NEB NEB (07:50)
[2025-10-04] MEDS: ACETAMINOPHEN 500 MG TABLET 1000 MG G-TUBE ×2 (09:31→22:20)
[2025-10-04] MEDS: ESCITALOPRAM 10 MG TABLET G-TUBE (09:31)
[2025-10-04] MEDS: OMEPRAZOLE 20 MG CAPSULE DR G-TUBE ×2 (09:31→22:20)
[2025-10-04] MEDS: SIMETHICONE 80 MG TAB.CHEW G-TUBE ×4 (09:32→22:21)
[2025-10-04] MEDS: METOCLOPRAMIDE 10 MG TABLET G-TUBE ×3 (09:32→22:20)
[2025-10-04] MEDS: ASPIRIN 81 MG TAB.CHEW G-TUBE (09:33)
--- NOTE | 2025-10-04 09:59 | RESP.RT ---
Patient does not follow directions well and has limited mucus clearance options. We have attempted to use oral suctioning to assist with clearing oral secretions, but patient does not allow for routine suctioning. Patient is SATing 95% on room air, but has significant upper airway wheezing. Since there are limited mucus clearance options, PRN nebs would be the best option.
[2025-10-04] MEDS: FUROSEMIDE 10 MG/ML inj 40 MG IVP ×2 (10:54→13:48)
[2025-10-04] MEDS: POTASSIUM CHLORIDE 10 MEQ/100 ML PIGGYBACK 100 MEQ IVPB ×2 (10:55→12:42)
--- NOTE | 2025-10-04 11:00 | P.IMPN_ITS ---
Assessment and Plan Assessment and plan (1) Severe sepsis: Problem comment: RESOLVED - 09/30: fever, heart rate, respiratory rate, witnessed aspiration event, elevated lactate - source likely developing pneumonia (CXR lag vs aspiration pneumonitis) - 10/01: evidence of LLL asp pneumonia, mild hypoxia - initially treated with Zoysn/Doxycycline, transition to oral Augmentin but given aspiration, transitioned back to IV therapy; on Unasyn as of 10/01/25 - 10/03: Continues to have intermittent fevers, will broaden to Zosyn to cover Pseudomonas (does not need MRSA coverage, swab negative) - BC remained negative 10/04 last fever just over 24 hours ago, remains vitally stable, cultures negative, continue Zosyn, discontinue IVF, has PPN orders Status: Acute (2) Aspiration, chronic pulmonary: Problem comment: - history and discussion below - 10/03: On IV Zosyn, RT following 08/26/25 - admitted to [place] for asp pneumonitis 09/30/25 - admitted to [place] for asp pneumonitis Query post pyloric extension. Query chlorhexidine mouthwash. On prokinetics and ACEI (which decreases aspiration risk). His history of stroke increases his risk of aspiration, clearly. However, his consciousness, ability to protect his airway, upright seating and avoiding bolus feeding are still not helping. He is already on an elemental formula, that should be reducing his aspiration risk. Gastric residual volume (GRV) measurements have poor sensitivity for detecting aspiration and do not predict pneumonia or improve outcomes. GRV monitoring is not necessary in most cases. If used, avoid holding the feeds if the residual volume is less than 500 mL or even if greater than 500 but pt is tolerating the feeds. Routine residual volume checks increased tube clogging risk 10-fold and may paradoxically increase pneumonia risk by reducing nutritional delivery over time. so only things we have not pursued: -chlorhexidine oral care (not really possible with his deficits) -diverting to the small-bowel, post pyloric -Call out to [place] 10/01/25 am for urgent extension of PEG-J extension. -[place] declined visit for procedure; transfer for inpatient care started afternoon 10/01, currently accepted for 10/05 transfer and 10/06 procedure Status: Acute (3) Hemiplegia affecting left nondominant side: Problem comment: -dense deficits; lives in SNF ([facility], [place]) Moderate Assist of 1. Nonverbal Status: Chronic (4) History of CVA (cerebrovascular accident): Problem comment: 01/2020 - residual effects on the left side, but discharged home; continued to work and drive 02/2023 - devastating right carotid artery stroke, left side hemiparesis, aphasia, no longer swallows - admitted to LTC in April 2023 with gastrostomy tube, / care. Status: Acute (5) History of gastrostomy tube placement: Problem comment: Tube Type: Gastrostomy, [place]. -8100-18 G tube Tube Connection: ENFit. Tube Size: 18 [place]. Low Profile: No. Disc Height: 2 cm. Balloon Volume: 9 mL. Exchange tube in 3-5 months. Contact the [facility] at [phone] to schedule the tube exchange. (last exchange 08/16/25) [facility] - IR RN supervisor tower [phone] 10/01/25 - Discussed with IR Radiologist, Dr. Cardenas - approves urgent extension to tube to be done (currently scheduled for 10/06 at [place]) Status: Acute (6) Feeding by G-tube: Problem comment: - bolus vs slow feed continuous have been trialed; Reglan, ACEI in place with positioning. peptide formula in use - stopped 10/01 given aspiration concerns, plan to transfer to [place] on 10/05 for PEG to J tube extension on 10/06 with IR Status: Acute (7) Anticoagulant long-term use: Problem comment: - Apixaban - HELD 10/04 for 10/06 procedure Status: Acute (8) Pulmonary embolism: Problem comment: - during hospitalization for CVA in 2022, on Apixaban - help preoperatively - SCDs Status: Acute (9) Heart failure: Problem comment: Echocardiogram 10/03/2025 Final Impressions: 1. Technically limited exam with poor acoustic windows. 2. Normal LV size, normal wall thickness, mildly reduced global systolic function with an estimated EF of 45 - 50%. 3. Right ventricular cavity size is normal, global systolic RV function is normal. 4. No significant valve disease detected. BNP 2260 CXR 10/03 concerning for interstitial edema Likely combined systolic-diastolic Fluid overload component - maintenance IVF discontinued 10/04 will start Lasix 40 mg b.i.d. x4 doses, supplemental potassium, strict I&Os, monitoring for response Status: Acute Plan - per above (continue on Zosyn, PPN, started Lasix, transfer to [place] Monday) - FREDERIC Antonio starting 10/04 Total Time Spent Total Time Spent: Today I spent 65 minutes seeing the patient, reviewing Expanse and EPIC notes/diagnostics, discussing the care plan with our care time that includes social work, PT/OT, pharmacy, RT, penitentiary and documenting my impressions and plan in the medical record. Subjective Date Seen: 10/04/25 Interval history: Patient is seen lying reclined in bed. Appears in NAD. Shakes head no when asked of having headache or chest pain. Last fever rest over 24 hours ago. Remainder of vitals adequate. Intermittently tachypneic, notably with activity. Continues on IV antibiotics, awaiting transfer to [place] on 10/05 for surgical procedure on 10/06. Labs are pretty stable. CRP has significantly dropped. C diff negative. MRSA negative BC x2 NGTD UC NGTD Exam Narrative: Exam Narrative: PHYSICAL EXAM General: Sitting reclined in bed, no verbal communication, makes eye contact, appears in NAD HEENT: Normocephalic, atraumatic, sclera white, EOMI Cardiovascular: RRR, S1S2. No significant pitting edema Pulmonary: Coarse breath sounds throughout, no expiratory wheezes. No significant dyspnea on room air Abdominal: Soft, nondistended Neurological: Alert, answering questions appropriately, cranial nerves intact, no focal findings Skin: Warm, dry. Const: Vital Signs, click to edit/add: Vital Signs - 24 hr 10/03/25 11:07 10/03/25 11:24 10/03/25 15:39 Temperature 98.7 F 98.7 F 98.5 F Pulse Rate Pulse Rate [Pulse Oximeter] 80 63 Respiratory Rate 24 26 H Blood Pressure [Le ft Arm] 164/89 H Blood Pressure [Ri ght Arm] 158/82 H Pulse Oximetry 93 94 Oxygen Delivery Me thod Room Air Room Air Oxygen Flow Rate 10/03/25 16:15 10/03/25 16:38 10/03/25 18:43 Temperature Pulse Rate 67 Pulse Rate [Pulse Oximeter] 63 78 Respiratory Rate 26 H Blood Pressure [Le ft Arm] 171/93 H Blood Pressure [Ri ght Arm] Pulse Oximetry 96 Oxygen Delivery Me thod Oxygen Flow Rate 10/03/25 18:59 10/03/25 19:06 10/03/25 23:00 Temperature Pulse Rate 66 Pulse Rate [Pulse Oximeter] 70 64 Respiratory Rate 26 H 26 H Blood Pressure [Le ft Arm] 159/78 H Blood Pressure [Ri ght Arm] 169/83 H Pulse Oximetry 96 96 Oxygen Delivery Me thod Room Air Room Air Oxygen Flow Rate 10/03/25 23:00 10/03/25 23:00 10/03/25 23:00 Temperature 98.5 F Pulse Rate Pulse Rate [Pulse Oximeter] 73 Respiratory Rate 26 H 26 H 26 H Blood Pressure [Le ft Arm] 154/74 H Blood Pressure [Ri ght Arm] Pulse Oximetry 93 94 Oxygen Delivery Me thod Room Air Room Air Oxygen Flow Rate 0 10/04/25 04:00 10/04/25 07:00 10/04/25 09:31 Temperature 97.9 F 96.0 F L 96.6 F L Pulse Rate Pulse Rate [Pulse Oximeter] 66 67 Respiratory Rate 24 26 H Blood Pressure [Le ft Arm] Blood Pressure [Ri ght Arm] 149/80 H 149/71 H Pulse Oximetry 93 96 Oxygen Delivery Me thod Room Air Room Air Oxygen Flow Rate 0 Labs Labs: Laboratory Results - last 24 hr 10/03/25 10/04/25 21:17 06:40 WBC 4.73 RBC 3.43 L Hgb 10.8 L Hct 32.4 L MCV 95 MCH 32 MCHC 33 RDW Coeff of Namita 12.1 Plt Count 163 Neut % (Auto) 64.0 Lymph % (Auto) 25.4 [place] % (Auto) 8.9 Eos % (Auto) 1.3 Baso % (Auto) 0.2 Neut # (Auto) 3.03 Lymph # (Auto) 1.20 [place] # (Auto) 0.40 Eos # (Auto) 0.06 Baso # (Auto) 0.01 Abs Immat Gran (auto) 0.01 Imm/Tot Granulo (auto) 0.2 Sodium 133 L Potassium 3.5 L Chloride 102 Carbon Dioxide 23 Anion Gap 8 BUN 16 Creatinine 0.4 L Estimated Creat Clear 72.66 Estimated GFR 120 Glucose 127 H Calcium 7.8 L Phosphorus 3.0 Magnesium 1.9 C-Reactive Protein 10.3 H Stl C. diff Tox B Gene Negative Stl C. diff [id number] PRESUMPTIVE NEGATIVE
[2025-10-04] MEDS: FAT EMULSIONS 20 % 250 ML/250 ML BAG 14 ML IV (18:05)
--- NOTE | 2025-10-04 18:15 | PC.NURSE ---
Pt nonverbal, assist of 1-2 w gait belt. upon assessment pt had increased RR and wheezes, prn neb treatment given pt lung sounds improved. Pt was NPO throughout shift, PPN running, Pt tolerated PPN. No signs of pain throughout shift, pt encouraged to get up to chair, pt refused. Pt stayed in bed throughout shift. pt had loose stool and incontinence, pt check and changed and taken to the bathroom PRN. Pt resting comfortably in bed at this time.
[2025-10-04] MEDS: ATORVASTATIN CALCIUM 40 MG TABLET 80 MG G-TUBE (22:12)
[2025-10-04] MEDS: GABAPENTIN 300 MG CAPSULE G-TUBE (22:13)
[2025-10-05 03:00] VITALS: BP 126/89; PULSE 84; RESP 20; TEMP 36.5; O2SAT 90
[2025-10-05] MEDS: PIPERACILLIN/TAZOBACTAM 3.375 GM in 0.9 % SODIUM CHLORIDE Mini-bag 100 ML IVPB ×2 (03:10→08:54)
[2025-10-05] MEDS: SODIUM CHLORIDE 0.9 % (FLUSH) 10 ML SYRINGE 5 ML IVF ×2 (03:10→10:06)
[2025-10-05 06:48] LABS: Hematocrit* 33.8 % (37.0-53.0); Hemoglobin* 11.5 gm/dL (13.5-17.5); Immature Granulocytes Abs Auto 0.03 K/uL (0.00-0.30); Immature Granulocytes Pct Auto 0.6 %; Lymphocytes Absolute Auto 1.49 K/uL (0.90-2.90); Mean Corpuscular HGB Conc 34 gm/dL (32-36); Mean Corpuscular Hemoglobin 31 pg (26-34); Mean Corpuscular Volume 92 fL (80-100); RDW Coefficient of Variation % 12.1 % (11.5-15.5); Red Blood Count* 3.66 m/uL (4.30-5.90); White Blood Count* 4.72 K/uL (4.50-11.00)
[2025-10-05 06:50] LABS: Slide Review Reflex No
[2025-10-05 07:00] VITALS: BP 156/126; PULSE 68; PULSE 78; RESP 18; RESP 20; TEMP 36.6; O2SAT 95
[2025-10-05 07:02] LABS: Chloride* 99 mmol/L (96-114); Potassium* 3.2 mmol/L (3.6-5.1); Sodium* 135 mmol/L (135-149)
[2025-10-05 07:05] LABS: Anion Gap 8 mEq/L (7-15); Blood Urea Nitrogen* 15 mg/dL (7-30); Calcium* 8.2 mg/dL (8.4-10.6); Carbon Dioxide* 28 mmol/L (20-32); Creatinine* 0.6 mg/dL (0.5-1.5); Est. Creatinine Clearance* 72.66; Estimated Glomerular Filt Rate 106 ml/min; Glucose* 125 mg/dL (60-115)
--- NOTE | 2025-10-05 07:09 | PC.NURSE ---
Pt is alert and oriented to self only.?Afebrile.?On room air.?Pt?continues to have?intermittent?productive cough.?Pt?s posterior lung sounds are diminished with some fine crackles. Pt?is up A2 with IV pole, voiding, and tolerating an NPO diet.??
[2025-10-05 07:49] VITALS: PULSE 63
[2025-10-05] MEDS: IPRAT-ALBUT 0.5-2.5 MG/3 ML NEB 1 NEB IH (08:50)
[2025-10-05] MEDS: CARBOXYMETHYLCELLULOSE (REFRESH PLUS) TEARS 1 DROP EYE-BOTH (08:50)
[2025-10-05] MEDS: ASPIRIN 81 MG TAB.CHEW G-TUBE (09:53)
[2025-10-05] MEDS: OMEPRAZOLE 20 MG CAPSULE DR G-TUBE (09:53)
[2025-10-05] MEDS: ACETAMINOPHEN 500 MG TABLET 1000 MG G-TUBE (09:53)
[2025-10-05] MEDS: ESCITALOPRAM 10 MG TABLET G-TUBE (09:54)
[2025-10-05] MEDS: METOCLOPRAMIDE 10 MG TABLET G-TUBE (09:55)
[2025-10-05] MEDS: SIMETHICONE 80 MG TAB.CHEW G-TUBE (09:55)
[2025-10-05 10:00] VITALS: O2SAT 93
[2025-10-05 11:00] VITALS: BP 160/85; PULSE 68; RESP 18; TEMP 36.2; O2SAT 93
--- NOTE | 2025-10-05 11:46 | PC.NURSE ---
Pt nonverbal at baseline able to make some needs known by pointing. pt on had small BM, incontinent throughout shift. Pt informed about transfer to [facility]. pt was cooperative with cares, family notified of transfer. Midline PICC in place and patent. IV in R wrist removed, cath intact. Nurse to nurse report given to nurse Hopkins. Pt transferred out of facility via EMS.
== END 2025-10-05 11:28 | disposition short-term general hospital (02) | DRG 871 ==
LOC: ED 04:05 → MEDSURG 08:56
PROVIDERS: Family Medicine; Internal Medicine; Admitting Provider Family Medicine; Emergency Provider Emergency Medicine; PCP Family Medicine; Visit Provider Family Medicine
DX: A41.9 Sepsis, unspecified organism (principal); J69.0 Pneumonitis due to inhalation of food and vomit; I69.354 Hemiplegia and hemiparesis following cerebral infarction affecting left non-dominant side; R65.20 Severe sepsis without septic shock; I69.320 Aphasia following cerebral infarction; E11.9 Type 2 diabetes mellitus without complications; I10 Essential (primary) hypertension; Z93.1 Gastrostomy status; Z86.711 Personal history of pulmonary embolism; Z79.01 Long term (current) use of anticoagulants; E78.5 Hyperlipidemia, unspecified
CPT/HCPCS: 36410; 36415; 71045; 76937; 80048; 80053; 81001; 82803; 82962; 83605; 83735; 83880; 84100; 84134; 84145; 84484; 85025; 85379; 86140; 87040; 87081; 87086; 87493; 87631; 93005; 93306; 94640; 94761; 99284; 99285; A4221; A9270; B4185; B4189; C1751; J0131; J0295; J1885; J1938; J2405; J2470; J2543; J3375; J3480; J7030; J7050; Q9957

== ENCOUNTER 2025-10-05 11:18 | Outpatient (CLI) | payer MEDICARE, BC, SELFPAY | END 2025-10-05 11:19 | disposition home or self-care (01) | LOC: AMB 10-09 17:25 | PROVIDERS: PCP Family Medicine; Visit Provider Emergency Medicine | DX: A41.9 Sepsis, unspecified organism (principal); I26.99 Other pulmonary embolism without acute cor pulmonale | CPT/HCPCS: A0425; A0427 ==